=== PATIENT | male | born 1935 | race Caucasian/White ===

== ENCOUNTER 2018-05-04 00:15 | Inpatient (IN) | payer MEDICARE, OTHER, SELFPAY ==
[2018-05-04] VITALS (14 sets, daily range): BP systolic 118–159; BP diastolic 58–106; PULSE 64–111; RESP 16–29; TEMP 36.3–37.2; O2SAT 95–99; BMI 23.8
--- NOTE | 2018-05-04 | DI.RAD.S_ITS ---
PROCEDURE: XR CHEST 1V INDICATIONS: STROKE TECHNIQUE: One view of the chest was acquired. COMPARISON: [facility], CT, PE STUDY (CTA CHEST), 03/31/2015, 17:46. [facility], CR, CHEST 1 VIEW, 03/31/2015, 15:33. [facility], CR, CHEST 1VW (PORTABLE), 11/28/2012, 7:14. [facility], CR, CHEST 2 VIEW, 01/31/2017, 15:38. [facility], CR, CHEST 1 VIEW, 02/05/2017, 11:41. FINDINGS: Surgical changes and devices: Cardiac pacemaker in expected position. Lungs and pleura: Chronic blunting of the left costophrenic angle likely secondary to pleural scarring. No pneumothorax. Mediastinum: Mediastinal contours appear normal. Heart size is moderately increased. Bones and chest wall: No suspicious bony lesions. Overlying soft tissues appear unremarkable. IMPRESSION: 1. No acute cardiopulmonary disease. 2. Cardiomegaly. Dictated by: Sophy Koroma M.D. on 05/04/2018 at 7:26 Approved by: Sophy Koroma M.D. on 05/04/2018 at 7:28
--- NOTE | 2018-05-04 | DI.CT.S_ITS ---
PROCEDURE: CT HEAD/BRAIN WO CON INDICATIONS: STROKE TECHNIQUE: Noncontrast 4.5 mm thick angled axial sections acquired from the foramen magnum to the vertex, with coronal and sagittal reformats. For radiation dose reduction, the following was used: automated exposure control, adjustment of mA and/or kV according to patient size. COMPARISON: [facility], CT, HEAD WITHOUT CONTRAST, 03/12/2014, 13:00. FINDINGS: Image quality: Excellent. CSF spaces: Basal cisterns are patent. No extra-axial fluid collections. The ventricles are symmetric in size and shape. Brain: There is encephalomalacia in parietal lobes bilaterally consistent with old infarcts. Compared with the last CT on 03/12/2014, there is no significant change. Old lacunar infarcts in basal ganglia bilaterally are again noted. No intracranial bleeds or masses. There is cerebral volume loss for age, with resultant ventricular and sulcal prominence. There are periventricular and deep white matter chronic small vessel ischemic changes. There is intracranial internal carotid artery atherosclerosis. Skull and face: Calvarium and visualized facial bones appear intact, without suspicious lesions. Sinuses: Visualized sinuses and mastoids are clear. IMPRESSION: 1. Stable old parietal infarcts bilaterally and old lacunar infarcts in basal ganglia bilaterally. 2. No acute intracranial abnormalities. 3. Cerebral volume loss and chronic microvascular ischemic changes. No significant discrepancy with the assistant casino shift manager radiology preliminary report. Dictated by: Sophy Koroma M.D. on 05/04/2018 at 7:46 Approved by: Sophy Koroma M.D. on 05/04/2018 at 7:51
--- NOTE | 2018-05-04 00:29 | DI.CT.S_ITS ---
PROCEDURE: CT ANGIO HEAD AND NECK INDICATIONS: Acute Right upper extremety weakness TECHNIQUE: Pre-contrast 4.5 mm thick sections acquired from the foramen magnum to the vertex. After the administration of intravenous contrast, 1 mm thick sections acquired from the aortic arch through the [place]. Post-contrast 4.5 mm thick sections then re-acquired from the foramen magnum to the vertex. 3-dimensional wnzjwac-blimkxxhb-sahpwuoexu (MIP) and/or volume rendering reformats were acquired of the central intracranial vasculature and neck separately. COMPARISON: [facility], , MRI HEAD W/ANGIOGRAM, 02/21/2003, 14:37. [facility], US, CAROTID ARTERY DOPPLER BILAT, 09/04/2016, 12:14. [facility], CT, HEAD WITHOUT CONTRAST, 03/12/2014, 13:00. FINDINGS: Image quality: Excellent. BRAIN: CSF spaces: Ventricles are normal in size and shape. Basal cisterns are patent. No extra-axial fluid collections. Brain: No midline shift. No intracranial bleeds or masses. Esquivel-white matter interface appears intact. Skull and face: Calvarium and facial bones appear intact, without suspicious lesions. Orbits appear normal. Sinuses: Sinuses and mastoids are clear. HEAD CT ANGIOGRAPHY: Anterior circulation: Intracranial internal carotid arteries are normal in size and flow. The flow within the paired anterior cerebral arteries is normal and symmetric. The flow within the middle cerebral arteries is normal and symmetric. The anterior communicating artery is seen. No aneurysms are seen. Posterior circulation: Visualized portions of the vertebral arteries demonstrate normal caliber, and join to form a normal appearing basilar artery. Flow within the posterior cerebral arteries is normal and symmetric. No aneurysms are seen. NECK CT ANGIOGRAPHY: Carotid system: The great vessels demonstrate a conventional anatomy as they arise from the aortic arch. The origins of the common carotid arteries appear patent. The common carotid arteries demonstrate normal caliber and courses. The bifurcation regions demonstrate mild atherosclerotic calcification bilaterally. There is ~30% stenosis of the proximal right internal carotid artery. No significant narrowing in the left internal carotid artery. More distally, the internal carotid arteries demonstrate normal calibers and courses. Posterior circulation: The origins of the vertebral arteries both appear widely patent. The more superior extracranial portions of both vertebral arteries also demonstrate normal courses and calibers. They join to form a normal appearing basilar artery. Soft tissues: Visualized neck soft tissues demonstrate no suspicious abnormalities. Bones: No suspicious bony lesions. Visualized cervical spine appears normally aligned. Degenerative disc and facet disease noted in cervical spine. IMPRESSION: 1. No high-grade stenosis or occlusion in anterior circulation. 2. No high-grade stenosis or occlusion in posterior circulation. 4. Calcified plaques at the carotid bifurcations bilaterally. There is mild stenosis (~30%) of the proximal right internal carotid artery. 3. No significant stenosis in cervical vertebral arteries bilaterally. No significant discrepancy with the slot shift supervisor radiology preliminary report. Any quantitative measurements of stenosis were performed using NASCET criteria. Dictated by: Sophy Koroma M.D. on 05/04/2018 at 8:16 Approved by: Sophy Koroma M.D. on 05/04/2018 at 8:26
[2018-05-04 00:44] LABS: Add Manual Diff / Slide Review NO; Basophils Percent Auto 0.6 % (0-2); Eosinophils Percent Auto 2.4 % (2-4); Hematocrit 33.7 % (41-53); Hemoglobin 10.6 g/dL (13.5-17.5); Lymphocytes Percent Auto 29.8 % (25-40); Mean Corpuscular HGB Conc 31.6 % (30-36); Mean Corpuscular Hemoglobin 24.9 PG (26-34); Mean Corpuscular Volume 78.9 fL (80-100); Monocytes Percent Auto 9.9 % (3-14); Neutrophils Absolute Auto 4500 /uL (3000-5900); Neutrophils Percent Auto 57.3 % (50-75); Platelet Count 344 X10^3/uL (150-400); Red Blood Cell Count 4.27 X10^6/uL (4.5-5.9); Red Cell Distribution Width 15.7 % (11.6-14.8); White Blood Cell Count 7.8 X10^3/uL (4.5-11.0)
[2018-05-04 00:47] LABS: INR 2.1 (0.9-1.3); Prothrombin Time 22.7 SECONDS (10.1-12.7)
[2018-05-04 00:52] LABS: BUN Creatinine Ratio 26.9 (6-22); Blood Urea Nitrogen 35 mg/dL (9-20); Calcium 9.7 mg/dL (8.4-10.2); Carbon Dioxide 26 mmol/L (22-32); Chloride 106 mmol/L (98-107); Glucose 166 mg/dL (80-110); HEMOLYSIS < 15 (0-50); Potassium 4.6 mmol/L (3.4-5.1); Sodium 143 mmol/L (137-145)
--- NOTE | 2018-05-04 01:06 | PC.NURSE ---
Angio Head and Neck CT
--- NOTE | 2018-05-04 01:07 | PC.NURSE ---
Pt is unable to move right arm,he can sense that it is there but can't move it. Pt has hx stroke with some left sided defecits in left arm but pt stats that this doesn't feel like when he had a stroke before. pt is alert/oriented and acting appropriate.
[2018-05-04 01:25] LABS: Troponin I 0.054 ng/mL (0.01-0.034)
--- NOTE | 2018-05-04 02:24 | ED_ITS ---
HPI - Neuro Symptoms/Deficit General Chief Complaint: Neuro Symptoms/Deficit Stated Complaint: Rt Side Weakness History of Present Illness HPI Narrative: HPI 83 y/o male w/ a Hx CVA with persistent mild left upper extremity weakness, A. fib on warfarin, seizure disorder, CHF, and ischemic cardiomyopathy presents for evaluation of 1.5 hours of sudden onset right upper extremity flaccid weakness with grossly intact sensation. Patient reports he is watching television when his right arm went weak. Denies LOC. * Onset: 1.5 hours prior to arrival * EMS/Triage glucose: not available. * Anticoagulation: warfarin * Denies: prior intracranial bleeding, recent surgery, recent arterial puncture , dark or tarry or bright red stools. M/S/F/SocHx notable for: please see HPI; remainder reviewed with patient and in chart. ROS: Negative constitutional, eye, cardiovascular, pulmonary, GI, , MSK, skin , neurologic, psychiatric, endocrine unless noted in the HPI. Exam Gen: Pleasant, nontoxic-appearing, resting comfortably. HEENT: NC, AT, PEERL, EOMI. Resp: Clear to auscultation bilaterally, normal work of breathing, no accessory muscle usage. Card: Regular rate and rhythm with no murmurs, rubs, or gallops, extremities warm and well perfused. GI: Non-tender to palpation throughout all quadrants, no focal tenderness at McBurney's point, negative Armijo's sign, non-distended, no rebound or guarding. : No suprapubic tenderness to palpation. MSK: No visible deformities, strength and tone without visually appreciable deficit. Skin: Normal color with no visible lesions. Neuro: Gen AO x 3, no facial asymmetry, no gaze preference, no slurring of speech. CN II-III: pupils equal and reactive (4->2mm bilaterally); III, IV, : EOMI, V1-V3: sensation to touch bilaterally intact; VII: no facial asymmetry ( frown / smile); VIII: no nystagmus; X: phonation intact, uvula midline; XI: trapezius 5/5 bilaterally, XII: tongue midline. Cerebellar: left upper extremity with mild dysmetria, bilateral lower extremities without dysmetria on heel to cesar. Motor: left 5/5 global account executive /elbow/shoulder strength with sensation intact to touch. Right upper extremity with 0/5 global account executive strength, elbow flexion, shoulder function. Sensation grossly intact to touch. Bilateral 5/5 dorsiflexion/plantarflexion and foot sensation intact to touch. Psych: Mood and affect appropriate. Labs (pertinent): POC glucose 166 WBC 7.8, Hb 10.6, PLT 344, Na 143, K 4.6, Cr 1.30. Troponin 0.054 PT/INR 2.1, aPTT 22.7 Imaging (pertinent): CT Head: in comparison to the previous study there has been no significant interval change. Again the patient demonstrates large bilateral cerebral infarcts with resulting in several encephalomalacia/gliosis. There is pre- existing periventricular white matter disease with old lacunar infarcts in the basal ganglia. CTA Head and Neck: not available. CXR: No acute cardiopulmonary disease process. EKG: ventricularly paced at 94 bpm. CTA: no evidence of acute vascular pathology. MDM Previous chart, nursing note, labs, imaging, and vitals reviewed. A: 83 y/o male w/ a Hx CVA with persistent mild left upper extremity weakness, A. fib on warfarin, seizure disorder, CHF, and ischemic cardiomyopathy presents for evaluation of 1.5 hours of sudden onset right upper extremity flaccid weakness with grossly intact sensation. DDx: CVA (hemorrhagic, ischemic), TIA, seizure with Juan?s paralysis, complex migraine with aura, hypoglycemia, transient global amnesia, arrhythmia/ACS, peripheral vestibulopathy, functional / conversion disorder, intracranial mass ( tumor, SDH), metabolic. Evaluation: suspect an acute ischemic stroke, patient not a TPA candidate, stat CTA head and neck were ordered to evaluate for large vaso-occlusive disease. Given absence of LOC, incontinence, or other characteristic features strongly doubt Juan's paralysis following a seizure. CTA without evidence of intervenable lesion. Troponin mildly elevated 0.054, unclear if this represents an NSTEMI versus baseline level of troponin elevation. Patient given aspirin and admitted for further care. At the time of the patient's emergency department evaluation there is no clear evidence of stroke mimic. Impression: right arm weakness (please reference below for remainder of encounter information) On Anticoagulants: Yes (coumadin) Related Data Previous Rx's Medication Instructions Recorded digoxin [Lanoxin] 0.125 mg PO QPM #30 tab 02/10/17 gemfibrozil 600 mg PO BIDAC #180 tab 06/21/17 metoprolol succinate 100 mg PO QDAY #90 ter 06/21/17 baclofen 0 PO SEE INSTRUCTIONS #90 tab 02/01/18 diazepam [Valium] 5 mg PO Q DAY #30 tab 02/01/18 furosemide [Lasix] 20 mg PO QAM #120 tab 02/01/18 warfarin [Coumadin] 5 mg PO QDAY #150 tab 02/01/18 potassium chloride ER 20 mEq 20 meq PO QAM #30 tab 03/22/18 tablet,extended release(part/cryst) Allergies Allergy/AdvReac Type Severity Reaction Status Date / Time atorvastatin [ATORVASTATIN] Allergy Mild SORE ANKLES Verified 05/04/18 00:57 simvastatin [SIMVASTATIN] Allergy Mild RASH Verified 05/04/18 00:57 influenza virus vaccine, Allergy Unknown Verified 05/04/18 00:57 specific [INFLUENZA VIRUS VACC,SPECIFIC] gabapentin [GABAPENTIN] AdvReac Intermediate altered Verified 05/04/18 00:57 mental status see 05/11/16 note PFSH Family History Brother Family history of prostate carcinoma Exam Initial Vital Signs Initial Vital Signs: Vital Signs Temperature 97.3 F L 05/04/18 00:10 Pulse Rate 95 H 05/04/18 00:10 Respiratory Rate 29 H 05/04/18 00:10 Blood Pressure 159/81 H 05/04/18 00:10 Pulse Oximetry 99 05/04/18 00:10 Course Orders Ordered: ED Orders 05/04/18 CT head/brain wo con Stat XR chest 1V Stat 05/04/18 00:29 CT angio head and neck Stat EKG-12 Lead Stat 05/04/18 00:30 Basic Metabolic Panel Stat Complete Blood Count AUTO DIFF Stat Prothrombin Time INR Stat Troponin I Stat Vital Signs - 8 hr 05/04/18 00:10 05/04/18 00:54 05/04/18 01:16 Temperature 97.3 F L Pulse Rate 95 H 91 H 83 Respiratory Rate 29 H 26 H 20 Blood Pressure 159/81 H Blood Pressure [Left Arm] 152/96 H 142/93 H Pulse Oximetry 99 97 97 MDM - Neuro Symptoms/Deficit Lab Data Result diagrams: 05/04/18 00:30 05/04/18 00:30 Lab Results 05/04/18 05/04/18 05/04/18 Range/Units 00:30 00:30 00:30 WBC 7.8 (4.5-11.0) X10^3/uL RBC 4.27 L (4.5-5.9) X10^6/uL Hgb 10.6 L (13.5-17.5) g/dL Hct 33.7 L (41-53) % MCV 78.9 L (80-100) fL MCH 24.9 L (26-34) PG MCHC 31.6 (30-36) % RDW 15.7 H (11.6-14.8) % Plt Count 344 (150-400) X10^3/uL Neut % (Auto) 57.3 (50-75) % Lymph % (Auto) 29.8 (25-40) % [place] % (Auto) 9.9 (3-14) % Eos % (Auto) 2.4 (2-4) % Baso % (Auto) 0.6 (0-2) % Neut # (Auto) 4500 (7783-6581) /uL PT 22.7 H (10.1-12.7) SECONDS INR 2.1 H (0.9-1.3) Sodium 143 (137-145) mmol/L Potassium 4.6 (3.4-5.1) mmol/L Chloride 106 (98-107) mmol/L Carbon Dioxide 26 (22-32) mmol/L BUN 35 H (9-20) mg/dL Creatinine 1.30 H (0.66-1.25) mg/dL Estimated GFR 53.0 L (>60) mL/min BUN/Creatinine Ratio 26.9 H (6-22) Glucose 166 H (80-110) mg/dL Calcium 9.7 (8.4-10.2) mg/dL Troponin I (0.01-0.034) ng/mL 05/04/18 Range/Units 00:30 WBC (4.5-11.0) X10^3/uL RBC (4.5-5.9) X10^6/uL Hgb (13.5-17.5) g/dL Hct (41-53) % MCV (80-100) fL MCH (26-34) PG MCHC (30-36) % RDW (11.6-14.8) % Plt Count (150-400) X10^3/uL Neut % (Auto) (50-75) % Lymph % (Auto) (25-40) % [place] % (Auto) (3-14) % Eos % (Auto) (2-4) % Baso % (Auto) (0-2) % Neut # (Auto) (3643-0635) /uL PT (10.1-12.7) SECONDS INR (0.9-1.3) Sodium (137-145) mmol/L Potassium (3.4-5.1) mmol/L Chloride (98-107) mmol/L Carbon Dioxide (22-32) mmol/L BUN (9-20) mg/dL Creatinine (0.66-1.25) mg/dL Estimated GFR (>60) mL/min BUN/Creatinine Ratio (6-22) Glucose (80-110) mg/dL Calcium (8.4-10.2) mg/dL Troponin I 0.054 H (0.01-0.034) ng/mL Discharge Plan Departure Prescriptions: No Action digoxin [Lanoxin] 125 MCG tablet 0.125 mg PO QPM Qty: 30 RF: 11 metoprolol succinate 100 MG tablet extended release 24 hr 100 mg PO QDAY Qty: 90 RF: 3 gemfibrozil 600 MG tablet 600 mg PO BIDAC Qty: 180 RF: 3 baclofen 10 MG tablet PO SEE INSTRUCTIONS Qty: 90 RF: 3 warfarin [Coumadin] 5 MG tablet 5 mg PO QDAY Qty: 150 RF: PRN furosemide [Lasix] 20 MG tablet 20 mg PO QAM Qty: 120 RF: 3 diazepam [Valium] 5 MG tablet 5 mg PO Q DAY Qty: 30 RF: 3 potassium chloride [Klor-Con M20] 20 mEq tablet,ER particles/crystals 20 meq PO QAM Qty: 30 RF: 11
--- NOTE | 2018-05-04 02:42 | PC.NURSE ---
Patient able to move right leg but can't ambulate - doesn't have control;
[2018-05-04] MEDS: ASPIRIN 81 MG TAB 324 MG PO (03:01)
[2018-05-04 03:02] LABS: Appearance Urine UA CLOUDY; Bilirubin Urine UA NEGATIVE (NEGATIVE); Color Urine UA YELLOW; Glucose Urine UA NEGATIVE (Normal); Ketones Urine UA NEGATIVE (NEGATIVE); Leukocyte Esterase Urine UA 2+ (NEGATIVE); Nitrite Urine UA POSITIVE (Negative); Occult Blood Urine UA 3+ (Negative); Protein Urine UA 2+ (Negative); Specific Gravity Urine UA <=1.005 (1.000-1.035); Urobilinogen Urine UA 0.2 E.U./dL (0.2)
[2018-05-04 03:15] LABS: RBC Urine 30-100/HPF (0-5/HPF); WBC Urine 30-100/HPF (0-5/HPF)
[2018-05-04 03:16] LABS: Bacteria Urine Many (>30); Culture Indicated Urine Specimen Cultured
--- NOTE | 2018-05-04 03:36 | ED.NEUROSD ---
HPI - Neuro Symptoms/Deficit General Chief Complaint: Neuro Symptoms/Deficit Stated Complaint: Rt Side Weakness History of Present Illness HPI Narrative: HPI 83 y/o male w/ a Hx CVA with persistent mild left upper extremity weakness, A. fib on warfarin, seizure disorder, CHF, and ischemic cardiomyopathy presents for evaluation of 1.5 hours of sudden onset right upper extremity flaccid weakness with grossly intact sensation. Patient reports he is watching television when his right arm went weak. Denies LOC. * Onset: 1.5 hours prior to arrival * EMS/Triage glucose: not available. * Anticoagulation: warfarin * Denies: prior intracranial bleeding, recent surgery, recent arterial puncture, dark or tarry or bright red stools. M/S/F/SocHx notable for: please see HPI; remainder reviewed with patient and in chart. ROS: Negative constitutional, eye, cardiovascular, pulmonary, GI, , MSK, skin, neurologic, psychiatric, endocrine unless noted in the HPI. Exam Gen: Pleasant, nontoxic-appearing, resting comfortably. HEENT: NC, AT, PEERL, EOMI. Resp: Clear to auscultation bilaterally, normal work of breathing, no accessory muscle usage. Card: Regular rate and rhythm with no murmurs, rubs, or gallops, extremities warm and well perfused. GI: Non-tender to palpation throughout all quadrants, no focal tenderness at McBurney's point, negative Armijo's sign, non-distended, no rebound or guarding. : No suprapubic tenderness to palpation. MSK: No visible deformities, strength and tone without visually appreciable deficit. Skin: Normal color with no visible lesions. Neuro: Gen AO x 3, no facial asymmetry, no gaze preference, no slurring of speech. CN II-III: pupils equal and reactive (4->2mm bilaterally); III, IV, : EOMI, V1-V3: sensation to touch bilaterally intact; VII: no facial asymmetry (frown / smile); VIII: no nystagmus; X: phonation intact, uvula midline; XI: trapezius 5/5 bilaterally, XII: tongue midline. Cerebellar: left upper extremity with mild dysmetria, bilateral lower extremities without dysmetria on heel to cesar. Motor: left 5/5 trailer body assembler /elbow/shoulder strength with sensation intact to touch. Right upper extremity with 0/5 trailer body assembler strength, elbow flexion, shoulder function. Sensation grossly intact to touch. Bilateral 5/5 dorsiflexion/plantarflexion and foot sensation intact to touch. Psych: Mood and affect appropriate. Labs (pertinent): POC glucose 166 WBC 7.8, Hb 10.6, PLT 344, Na 143, K 4.6, Cr 1.30. Troponin 0.054 PT/INR 2.1, aPTT 22.7 Imaging (pertinent): CT Head: in comparison to the previous study there has been no significant interval change. Again the patient demonstrates large bilateral cerebral infarcts with resulting in several encephalomalacia/gliosis. There is pre-existing periventricular white matter disease with old lacunar infarcts in the basal ganglia. CTA Head and Neck: not available. CXR: No acute cardiopulmonary disease process. EKG: ventricularly paced at 94 bpm. CTA: no evidence of acute vascular pathology. MDM Previous chart, nursing note, labs, imaging, and vitals reviewed. A: 83 y/o male w/ a Hx CVA with persistent mild left upper extremity weakness, A. fib on warfarin, seizure disorder, CHF, and ischemic cardiomyopathy presents for evaluation of 1.5 hours of sudden onset right upper extremity flaccid weakness with grossly intact sensation. DDx: CVA (hemorrhagic, ischemic), TIA, seizure with Juan?s paralysis, complex migraine with aura, hypoglycemia, transient global amnesia, arrhythmia/ACS, peripheral vestibulopathy, functional / conversion disorder, intracranial mass (tumor, SDH), metabolic. Evaluation: suspect an acute ischemic stroke, patient not a TPA candidate, stat CTA head and neck were ordered to evaluate for large vaso-occlusive disease. Given absence of LOC, incontinence, or other characteristic features strongly doubt Juan's paralysis following a seizure. CTA without evidence of intervenable lesion. Troponin mildly elevated 0.054, unclear if this represents an NSTEMI versus baseline level of troponin elevation. Patient given aspirin and admitted for further care. At the time of the patient's emergency department evaluation there is no clear evidence of stroke mimic. Patient incidentally noted intermittent mild urethral bleeding of several weeks duration that is only at the end administration. This was communicated to the accepting physician, further evaluation in the daytime. Impression: right arm weakness (please reference below for remainder of encounter information) On Anticoagulants: Yes (coumadin) Related Data Previous Rx's Medication Instructions Recorded digoxin [Lanoxin] 0.125 mg PO QPM #30 tab 02/10/17 gemfibrozil 600 mg PO BIDAC #180 tab 06/21/17 metoprolol succinate 100 mg PO QDAY #90 ter 06/21/17 baclofen 0 PO SEE INSTRUCTIONS #90 tab 02/01/18 diazepam [Valium] 5 mg PO Q DAY #30 tab 02/01/18 furosemide [Lasix] 20 mg PO QAM #120 tab 02/01/18 warfarin [Coumadin] 5 mg PO QDAY #150 tab 02/01/18 potassium chloride ER 20 mEq 20 meq PO QAM #30 tab 03/22/18 tablet,extended release(part/cryst) Allergies Allergy/AdvReac Type Severity Reaction Status Date / Time atorvastatin [ATORVASTATIN] Allergy Mild SORE ANKLES Verified 05/04/18 00:57 simvastatin [SIMVASTATIN] Allergy Mild RASH Verified 05/04/18 00:57 influenza virus vaccine, Allergy Unknown Verified 05/04/18 00:57 specific [INFLUENZA VIRUS VACC,SPECIFIC] gabapentin [GABAPENTIN] AdvReac Intermediate altered Verified 05/04/18 00:57 mental status see 05/11/16 note [facility] Family History Brother Family history of prostate carcinoma Exam Initial Vital Signs Initial Vital Signs: Vital Signs Temperature 97.3 F L 05/04/18 00:10 Pulse Rate 95 H 05/04/18 00:10 Respiratory Rate 29 H 05/04/18 00:10 Blood Pressure 159/81 H 05/04/18 00:10 Pulse Oximetry 99 05/04/18 00:10 Course Orders Ordered: ED Orders 05/04/18 CT head/brain wo con Stat XR chest 1V Stat 05/04/18 00:29 CT angio head and neck Stat EKG-12 Lead Stat 05/04/18 00:30 Basic Metabolic Panel Stat Complete Blood Count AUTO DIFF Stat Prothrombin Time INR Stat Troponin I Stat 05/04/18 02:50 Urinalysis and Microscopic Stat Urine Culture Stat Discontinued Medications Aspirin (Aspirin Chew) 324 mg PO NOW ONE Stop: 05/04/18 02:25 Last Admin: 05/04/18 03:01 Dose: 324 mg Vital Signs - 8 hr 05/04/18 00:10 05/04/18 00:54 05/04/18 01:16 Temperature 97.3 F L Pulse Rate 95 H 91 H 83 Respiratory Rate 29 H 26 H 20 Blood Pressure 159/81 H Blood Pressure [Left Arm] 152/96 H 142/93 H Pulse Oximetry 99 97 97 MDM - Neuro Symptoms/Deficit Lab Data Result diagrams: 05/04/18 00:30 05/04/18 00:30 Lab Results 05/04/18 05/04/18 05/04/18 Range/Units 00:30 00:30 00:30 WBC 7.8 (4.5-11.0) X10^3/uL RBC 4.27 L (4.5-5.9) X10^6/uL Hgb 10.6 L (13.5-17.5) g/dL Hct 33.7 L (41-53) % MCV 78.9 L (80-100) fL MCH 24.9 L (26-34) PG MCHC 31.6 (30-36) % RDW 15.7 H (11.6-14.8) % Plt Count 344 (150-400) X10^3/uL Neut % (Auto) 57.3 (50-75) % Lymph % (Auto) 29.8 (25-40) % [place] % (Auto) 9.9 (3-14) % Eos % (Auto) 2.4 (2-4) % Baso % (Auto) 0.6 (0-2) % Neut # (Auto) 4500 (7667-9727) /uL PT 22.7 H (10.1-12.7) SECONDS INR 2.1 H (0.9-1.3) Sodium 143 (137-145) mmol/L Potassium 4.6 (3.4-5.1) mmol/L Chloride 106 (98-107) mmol/L Carbon Dioxide 26 (22-32) mmol/L BUN 35 H (9-20) mg/dL Creatinine 1.30 H (0.66-1.25) mg/dL Estimated GFR 53.0 L (>60) mL/min BUN/Creatinine Ratio 26.9 H (6-22) Glucose 166 H (80-110) mg/dL Calcium 9.7 (8.4-10.2) mg/dL Troponin I (0.01-0.034) ng/mL Urine Color Urine Appearance Urine pH (4.5-8.0) Ur Specific [place] (1.000-1.035) Urine Protein (Negative) Urine Glucose (UA) (Normal) g/dL Urine Ketones (NEGATIVE) Urine Occult Blood (Negative) Urine Nitrate (Negative) Urine Bilirubin (NEGATIVE) Urine Urobilinogen (0.2) E.U./dL Ur Leukocyte Esterase (NEGATIVE) Urine RBC (0-5/HPF) Urine WBC (0-5/HPF) Urine Bacteria (None) Ur Culture Indicated? Micro UA Comment 05/04/18 05/04/18 Range/Units 00:30 02:50 WBC (4.5-11.0) X10^3/uL RBC (4.5-5.9) X10^6/uL Hgb (13.5-17.5) g/dL Hct (41-53) % MCV (80-100) fL MCH (26-34) PG MCHC (30-36) % RDW (11.6-14.8) % Plt Count (150-400) X10^3/uL Neut % (Auto) (50-75) % Lymph % (Auto) (25-40) % [place] % (Auto) (3-14) % Eos % (Auto) (2-4) % Baso % (Auto) (0-2) % Neut # (Auto) (3783-7985) /uL PT (10.1-12.7) SECONDS INR (0.9-1.3) Sodium (137-145) mmol/L Potassium (3.4-5.1) mmol/L Chloride (98-107) mmol/L Carbon Dioxide (22-32) mmol/L BUN (9-20) mg/dL Creatinine (0.66-1.25) mg/dL Estimated GFR (>60) mL/min BUN/Creatinine Ratio (6-22) Glucose (80-110) mg/dL Calcium (8.4-10.2) mg/dL Troponin I 0.054 H (0.01-0.034) ng/mL Urine Color Yellow Urine Appearance Cloudy Urine pH 7.0 (4.5-8.0) Ur Specific [place] <=1.005 (1.000-1.035) Urine Protein 2+ H (Negative) Urine Glucose (UA) Negative (Normal) g/dL Urine Ketones Negative (NEGATIVE) Urine Occult Blood 3+ H (Negative) Urine Nitrate Positive (Negative) Urine Bilirubin Negative (NEGATIVE) Urine Urobilinogen 0.2 (0.2) E.U./dL Ur Leukocyte Esterase 2+ H (NEGATIVE) Urine RBC 30-100/hpf H (0-5/HPF) Urine WBC 30-100/hpf H (0-5/HPF) Urine Bacteria Many (>30) H (None) Ur Culture Indicated? Specimen cultured Micro UA Comment Not Reportable Discharge Plan Departure Prescriptions: No Action digoxin [Lanoxin] 125 MCG tablet 0.125 mg PO QPM Qty: 30 RF: 11 metoprolol succinate 100 MG tablet extended release 24 hr 100 mg PO QDAY Qty: 90 RF: 3 gemfibrozil 600 MG tablet 600 mg PO BIDAC Qty: 180 RF: 3 baclofen 10 MG tablet PO SEE INSTRUCTIONS Qty: 90 RF: 3 warfarin [Coumadin] 5 MG tablet 5 mg PO QDAY Qty: 150 RF: PRN furosemide [Lasix] 20 MG tablet 20 mg PO QAM Qty: 120 RF: 3 diazepam [Valium] 5 MG tablet 5 mg PO Q DAY Qty: 30 RF: 3 potassium chloride [Klor-Con M20] 20 mEq tablet,ER particles/crystals 20 meq PO QAM Qty: 30 RF: 11
--- NOTE | 2018-05-04 04:52 | PC.NURSE ---
Small amount of blood from meatus of penis - MD notified; Urine sample sent to lab;
--- NOTE | 2018-05-04 06:19 | PC.NURSE ---
Patient is alert and oriented and provides great detail about past events although admits to some short term memory problems. NIH score is 7 at this time. He has some slurring of speech (uncertain if related to hx of previous CVA). Has some deficit in left arm from previous CVA but is able to grasp and has good ROM. Right arm is flaccid when lifted and asked to hold but patient is able to lift arm up but unable to hold for more than few seconds. No deficit noted in left LE but has some weakness in right LE; again is able to pick leg up and hold it with some drift but does not hit bed. Assisted to sit on side of bed to urinate and is unable to maintain upright position without support and doesn't move right arm along with rest of body. HRR and telemetry reading showing v-paced upon admission. Denies nausea. BT present and abdomen is soft. Denies dysuria, frequency, urgency or incontinence. Is able to turn himself in bed. Swallow screen passed without problems. Denies pain. Fall risk score is high and bed alarm activated, patient instructed to call for staff assist and verbalized understanding of not getting up without help. States preference to be DNR so will relay to MD via day shift RN. Oriented to room, call light and bed controls.
--- NOTE | 2018-05-04 11:27 | PM.HP.1 ---
History of Present Illness Date Patient Seen: 05/04/18 Time Patient Seen: 08:28 Chief complaint: Rt Side Weakness Narrative: Right arm weakness. The patient was admitted for early this morning through the emergency room. He had acute onset of right arm weakness sometime earlier this morning. He also felt that his right leg seemed weak. The weakness of his right arm persisted and came to the emergency room He relates that by the time he made it to the emergency room with right leg weakness had resolved As stated he had acute onset of right arm weakness unable to move at all altogether. He had no other associated symptoms. Denies headache any visual or speech changes and as stated of the right leg that defect has resolved He is status post having had a stroke involving the left side and has improved significantly. He says some weakness of the left hand but able to manage without difficulty The patient has multiple comorbidities related to this including atrial fibrillation, history of a CVA, diabetes, hypertension, hyperlipidemia, he has a defibrillator for V-tach. Patient sees Dr. Wong for his cardiac status last seen in January. Sees Dr. Baca for his ongoing healthcare seen in January. 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 Patient History Family & Social History Family History: Reviewed 05/04/18 by Javier Owens MD Social History: household members spouse Prior Living Arrangements House Safety & Behavioral: Feels Safe in Current Yes Environment Been Physically Hurt or No Threatened By a Person Suicidal Ideation Description None Suicide Plan Description No Plan Tobacco & Substance use: Smoking Status Never smoker alcohol intake never Substance Use Type does not use Meds Home Medications Medication Instructions Recorded Confirmed Type digoxin [Lanoxin] 0.125 mg PO QPM #30 tab 02/10/17 05/04/18 Rx gemfibrozil 600 mg PO BIDAC #180 tab 06/21/17 Rx metoprolol succinate 100 mg PO QDAY #90 ter 06/21/17 Rx diazepam [Valium] 5 mg PO Q DAY #30 tab 02/01/18 Rx furosemide [Lasix] 20 mg PO QAM #120 tab 02/01/18 05/04/18 Rx warfarin [Coumadin] 5 mg PO QDAY #150 tab 02/01/18 05/04/18 Rx baclofen 10 mg PO DAILY 05/04/18 05/04/18 History potassium chloride [Klor-Con M20] 100 meq PO QAM 05/04/18 History Allergies Allergy/AdvReac Type Severity Reaction Status Date / Time atorvastatin [ATORVASTATIN] Allergy Mild SORE ANKLES Verified 05/04/18 00:57 simvastatin [SIMVASTATIN] Allergy Mild RASH Verified 05/04/18 00:57 influenza virus vaccine, Allergy Unknown Verified 05/04/18 00:57 specific [INFLUENZA VIRUS VACC,SPECIFIC] gabapentin [GABAPENTIN] AdvReac Intermediate altered Verified 05/04/18 00:57 mental status see 05/11/16 note Review of Systems Review of Systems All systems reviewed & are unremarkable except as noted in HPI and below Exam Vital Signs (past 8 hours): - 05/04/18 03:55 05/04/18 04:48 05/04/18 04:53 Temperature 98.4 F 98.2 F Pulse Rate 94 H 64 95 H Respiratory Rate 16 18 19 Blood Pressure 145/64 H Blood Pressure [Left Arm] 145/74 H 146/65 H Pulse Oximetry 98 98 98 05/04/18 05:06 05/04/18 08:00 Temperature 97.6 F 98.4 F Pulse Rate 101 H 94 H Respiratory Rate 16 18 Blood Pressure 141/106 H 137/96 H Blood Pressure [Left Arm] Pulse Oximetry 98 98 Oxygen Delivery Method Room Air Narrative Exam Narrative: Gen.: Skin: Warm well perfused. No prominent lesions. Nonicteric. HEENT: PERRL., normal EOM, external ears canals TMs normal, nasal mucosa normal and midline septum, oropharynx without lesions. Neck: Trachea midline. Thyroid nontender and not enlarged. Carotids without bruits. No lymphadenopathy Back: No obvious deformity or tenderness. Chest: Clear to P&A. Symmetric. CV: RRR no murmur or gallop. No JVD. Abdomen: No masses bruits tenderness or visceromegaly. Neuro: Cranial nerves II through XII grossly intact. He has weakness of his right arm. He can elevate his arm at the shoulder. He can bend his elbow approximately 45?. He has no mobility of his wrist or his hand or his fingers. He also has residual from his stroke on the left with some weakness of the grasp of his left hand but has full mobility of the arm otherwise Gait not tested Mental status: Intact for screening Extremities: No cyanosis clubbing or edema] Musculoskeletal: No gross deformities Lymphatics: Negative for lymphadenopathy, supraclavicular axillary or inguinal Objective Labs Result Diagrams: 05/04/18 00:30 05/04/18 00:30 Labs: Laboratory Results - last 24 hr 05/04/18 05/04/18 05/04/18 00:30 00:30 00:30 WBC 7.8 RBC 4.27 L Hgb 10.6 L Hct 33.7 L MCV 78.9 L MCH 24.9 L MCHC 31.6 RDW 15.7 H Plt Count 344 Neut % (Auto) 57.3 Lymph % (Auto) 29.8 [place] % (Auto) 9.9 Eos % (Auto) 2.4 Baso % (Auto) 0.6 Neut # (Auto) 4500 PT 22.7 H INR 2.1 H Sodium 143 Potassium 4.6 Chloride 106 Carbon Dioxide 26 BUN 35 H Creatinine 1.30 H Estimated GFR 53.0 L BUN/Creatinine Ratio 26.9 H Glucose 166 H Calcium 9.7 Troponin I Urine Color Urine Appearance Urine pH Ur Specific [place] Urine Protein Urine Glucose (UA) Urine Ketones Urine Occult Blood Urine Nitrate Urine Bilirubin Urine Urobilinogen Ur Leukocyte Esterase Urine RBC Urine WBC Urine Bacteria Ur Culture Indicated? Micro UA Comment 05/04/18 05/04/18 00:30 02:50 WBC RBC Hgb Hct MCV MCH MCHC RDW Plt Count Neut % (Auto) Lymph % (Auto) [place] % (Auto) Eos % (Auto) Baso % (Auto) Neut # (Auto) PT INR Sodium Potassium Chloride Carbon Dioxide BUN Creatinine Estimated GFR BUN/Creatinine Ratio Glucose Calcium Troponin I 0.054 H Urine Color Yellow Urine Appearance Cloudy Urine pH 7.0 Ur Specific [place] <=1.005 Urine Protein 2+ H Urine Glucose (UA) Negative Urine Ketones Negative Urine Occult Blood 3+ H Urine Nitrate Positive Urine Bilirubin Negative Urine Urobilinogen 0.2 Ur Leukocyte Esterase 2+ H Urine RBC 30-100/hpf H Urine WBC 30-100/hpf H Urine Bacteria Many (>30) H Ur Culture Indicated? Specimen cultured Micro UA Comment Not Reportable Assessment & Plan Plan: Assessment/Plan Narrative: 1. Patient clinically had a stroke producing weakness of his right arm. However he does relate that has improved since she has been in the emergency room at initially at home he was unable to his right arm at all now is able to bend his elbow and elevated shoulder. The leg symptoms apparently have resolved altogether. This may well be a temporary insult yet to be determined Patient has obvious multiple risk factors for recurrent strokes. Patient is adequately anticoagulated The patient will remain here in the hospital for physical therapy and occupational therapy is he is still somewhat weak. Further evaluation pending Will continue his baseline medications Quality VTE Deep Vein Thrombosis/Pulmonary Embolism Present on Admission: No
[2018-05-04 11:57] LABS: Troponin I 0.073 ng/mL (0.01-0.034)
--- NOTE | 2018-05-04 13:28 | PT.IIE ---
Physical Therapy Inpatient Evaluation/Re-Eval M1 PT/OT-IP Prior Functional Status Start: 05/04/18 13:02 Freq: NEEDED Status: Active Protocol: Document 05/04/18 11:45 [facility] (Rec: 05/04/18 13:28 [facility] [id number]) Medical Review Prior Functional Status Medical History Reviewed Yes Diet/Fluid Consistency Regular Communication communication with nursing as the patient had been sitting up using the urinal and needed help getting back into bed Prior Functional Level (Other details) the patient has some residual left sided weakness from a previous stroke involving his left side but was independent with all ADL's. He had been using his right hand to eat as the left hand was the most affected. Social History Household Members spouse Living Arrangements House Employment Status Retired M2 PT-IP Current Condition Start: 05/04/18 13:02 Freq: NEEDED Status: Active Protocol: Document 05/04/18 11:45 [facility] (Rec: 05/04/18 13:28 [facility] [id number]) Physical Therapy Current Condition Current Condition Evaluation Date 05/04/18 Treatment Diagnosis right sided weakness Onset Date 05/03/18 M3 PT-IP Subjective Start: 05/04/18 13:02 Freq: NEEDED Status: Active Protocol: Document 05/04/18 11:45 [facility] (Rec: 05/04/18 13:28 [facility] [id number]) Subjective Physical Therapy Visit Type Type Initial Evaluation Visit Start Time 11:45 Visit Stop Time 12:10 Total Visit Minutes 25 Physical Therapy Visit Comments Patient Comments Mr Caldwell reports his right sided weakness does seem a little better that it did when he was admitted. He reports it is his hand which was most affected. Patient/Caregiver Goals To return to his prior level of function at home Therapy Pain Assessment Pain When Pain Assessed At Rest Pain Present Pain Present Denied Pain M4 PT-IP Mobility and Gait Start: 05/04/18 13:02 Freq: NEEDED Status: Active Protocol: Document 05/04/18 11:45 [facility] (Rec: 05/04/18 13:28 [facility] [id number]) PT-Bed Mobility Assessment Rolling Level of Assist Minimal Assistance Sit to Supine Sit to Supine Minimal Assistance Scooting Scooting to Edge of Bed Minimal Assistance PT-Transfer Assessment Comments Mobility Comments The patient had been sitting up with nursing using the urinal when PT came into assess him. He did not wish to get out of bed again but agreed to transfers and strength assessment Gait Assessment Comments Gait Comments needs further evaluation PT-Balance Assessment Sitting Balance and Reactions Static Sitting Balance Ability Good Dynamic Sitting Balance Ability Good M5 PT-IP Objective Assessments Start: 05/04/18 13:02 Freq: NEEDED Status: Active Protocol: Document 05/04/18 11:45 [facility] (Rec: 05/04/18 13:28 [facility] [id number]) Orientation Orientation/Cognition Level of Alertness Alert Gross Range of Motion Upper Extremity ROM Assessment Right Impaired Impairments PROM WFL AROM limited to unable to perform for right wrist and hand, no ablility to lockstitch back maker elbow flexion AROM WFL, shoulder AROM 90 deg with elbow in a bent position, able to perform some active ROM shoulder IR, ER and horizontal adduction Lower Extremity ROM Assessment Within Functional Limits Strength Upper Extremity Strength Assessment Bilaterally Impaired Shoulder flexion 2/5 (with elbow bent) Right, 5/5 left Elbow 3/5 R 5/5 L Wrist 0/5 R, 3/5 L Hand 0/5 R, 2/5 L Lower Extremity Strength Assessment Right Impaired Hip flexion 3/5 Knee flexion 4/5, extension 4/5 Ankle DF 4/5, PF 4/5, inver 4/5, ever 4/5 Comments Strength Comments Right wrist and hand most affected with 0/5 MMT The patient is able to bend elbow and small amounts of shoulder elevation with elbow flexion are actively performed . Muscle Tone Muscle Tone WNL Yes M6 PT-IP Treatment Start: 05/04/18 13:02 Freq: NEEDED Status: Active Protocol: Document 05/04/18 11:45 [facility] (Rec: 05/04/18 13:28 [facility] [id number]) Physical Therapy Treatment Exercises Exercises Ankle Pumps Gluteal Sets Quad Sets Heel Slides Straight Leg Raises Elbow Flexion/Extension M7 PT-IP Assessment and Plan Start: 05/04/18 13:02 Freq: NEEDED Status: Active Protocol: Document 05/04/18 11:45 [facility] (Rec: 05/04/18 13:28 [facility] [id number]) PT Summary Assessment and Plan Potential Rehabilitation Potential Good Status of Condition at Evaluation Evolving Summary Impairments Strength Bed Mobility Transfers Gait Activity Tolerance Goals Bed Mobility Goal Independent Transfer Goal Independent Gait Goal Standby Assistance Gait Distance 150 feet Days to Meet Goals 3 Frequency of Treatment Frequency Of Treatment Twice a Day Treatment Plan Physical Therapy Treatment Plan Bed Mobility Training Transfer Training Gait Training Therapeutic Exercise Neuromuscular Re-ed Recommendations To Nursing Amount of Assist Needed 1 Person Assist Discharge Recommendations PT Discharge Recommendations Home with Assistance Other Discharge Recommendations further evaluation needed
[2018-05-04] MEDS: levoFLOXacin 250 MG/50 ML PIGGYBACK 50 MG IV (14:18)
[2018-05-04] MEDS: METOPROLOL ER 50 MG TABLET 100 MG PO (14:18)
[2018-05-04] MEDS: FUROSEMIDE 20 MG TABLET PO (14:18)
[2018-05-04] MEDS: SODIUM CHLORIDE 0.9% FLUSH 10 ML IV ×2 (14:19→21:18)
[2018-05-04] MEDS: WARFARIN 5 MG TABLET PO (14:21)
--- NOTE | 2018-05-04 14:52 | CM.DANOTE ---
Discharge Planning/Care Management DCP: assessment: Case received and met this morning 0830 with pt. Introduced self and role. Pt is an 83 year old male who admitted early this mornin to care of A physician team. PCP: Dr. Baca. Dr. Owens sees him today. Payer: Medicare and [employer]. Admission status is confirmed now by UR RN Jonny as: INPT. Pt with new R sided weakness in setting of prior CVA with residual L side weakness and need to use his R hand to feed himself. PT is seeing pt, OT order is obtained now. Pt states his Dolly has gone home to sleep as she left hospital this morning about 0630. P: at this point is in process. CM DCP team will follow, obtain OT, PT input and discuss d/c issues and options as more is known. CM Discharge Assessment Start: 05/04/18 14:49 Freq: Status: Active Protocol: Document 05/04/18 14:49 ITV (Rec: 05/04/18 14:51 ITV [email or web address]) Discharge Planning Assessment History Provided By Patient Medical Record Has Patient been admitted in last 30 No days? Is this patient on Medicare? Yes Prior Living Arrangements House Household Members spouse Independent with ADL's Yes: compensates for some L side weakness from prior CVA Is patient alert and oriented? Yes Caregiver for Another No DME Already Rented / Owned FWW / Walker Comment has FWW, says does not like or use it Review Status In Process Next Review Type Continued Stay Review
--- NOTE | 2018-05-04 14:56 | PC.NURSE ---
Pt is A&ox3, skin is clear. Pt had shakes, and small emesis earlier on in the shift. Low grade temp of 99.0. Has worked a bit with P.T. He can raise his r.arm up but has a hard time gripping things, pt had to be fed at lunch today. L.arm is also affected from a cva that he had 20 years ago. Pt speech was slurred this morning and this has resolved. Pt is also able to lift up his r.leg and keep it in the air. Noc shift reported that he could raise his r. arm but hand flacid. Pt has been voiding a lot in urinal, Pts urine has a foul odor from UTI. He has been started on Levaquin and is visiting with his at this time.
[2018-05-04] MEDS: GEMFIBROZIL 600 MG TABLET PO (16:51)
[2018-05-04] MEDS: DIGOXIN 0.125 MG TABLET PO (16:53)
--- NOTE | 2018-05-04 18:00 | P.HP_ITS ---
History of Present Illness Chief complaint: Rt Side Weakness Narrative: Right arm weakness. The patient was admitted for early this morning through the emergency room. He had acute onset of right arm weakness sometime earlier this morning. He also felt that his right leg seemed weak. The weakness of his right arm persisted and came to the emergency room He relates that by the time he made it to the emergency room with right leg weakness had resolved As stated he had acute onset of right arm weakness unable to move at all altogether. He had no other associated symptoms. Denies headache any visual or speech changes and as stated of the right leg that defect has resolved He is status post having had a stroke involving the left side and has improved significantly. He says some weakness of the left hand but able to manage without difficulty The patient has multiple comorbidities related to this including atrial fibrillation, history of a CVA, diabetes, hypertension, hyperlipidemia, he has a defibrillator for V-tach. Patient sees Dr. Wong for his cardiac status last seen in January. Sees Dr. Baca for his ongoing healthcare seen in January. 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 Patient History Family & Social History Family History: Reviewed 05/04/18 by Javier Owens MD Social History: household members spouse Prior Living Arrangements House Safety & Behavioral: Feels Safe in Current Yes Environment Been Physically Hurt or No Threatened By a Person Suicidal Ideation Description None Suicide Plan Description No Plan Tobacco & Substance use: Smoking Status Never smoker alcohol intake never Substance Use Type does not use Meds Home Medications Medication Instructions Recorded Confirmed Type digoxin [Lanoxin] 0.125 mg PO QPM #30 tab 02/10/17 05/04/18 Rx gemfibrozil 600 mg PO BIDAC #180 tab 06/21/17 Rx metoprolol succinate 100 mg PO QDAY #90 ter 06/21/17 Rx diazepam [Valium] 5 mg PO Q DAY #30 tab 02/01/18 Rx furosemide [Lasix] 20 mg PO QAM #120 tab 02/01/18 05/04/18 Rx warfarin [Coumadin] 5 mg PO QDAY #150 tab 02/01/18 05/04/18 Rx baclofen 10 mg PO DAILY 05/04/18 05/04/18 History potassium chloride [Klor-Con M20] 100 meq PO QAM 05/04/18 History Allergies Allergy/AdvReac Type Severity Reaction Status Date / Time atorvastatin [ATORVASTATIN] Allergy Mild SORE ANKLES Verified 05/04/18 00:57 simvastatin [SIMVASTATIN] Allergy Mild RASH Verified 05/04/18 00:57 influenza virus vaccine, Allergy Unknown Verified 05/04/18 00:57 specific [INFLUENZA VIRUS VACC,SPECIFIC] gabapentin [GABAPENTIN] AdvReac Intermediate altered Verified 05/04/18 00:57 mental status see 05/11/16 note Exam Vital Signs (past 8 hours): - 05/04/18 12:00 05/04/18 15:42 05/04/18 16:53 Temperature 98.9 F 98.6 F Pulse Rate 111 H 108 H 108 H Respiratory Rate 18 18 Blood Pressure 118/73 132/58 H 132/58 H Pulse Oximetry 98 95 Oxygen Delivery Method Room Air Objective Labs Result Diagrams: 05/04/18 00:30 05/04/18 00:30 Labs: Laboratory Results - last 24 hr 05/04/18 05/04/18 05/04/18 00:30 00:30 00:30 WBC 7.8 RBC 4.27 L Hgb 10.6 L Hct 33.7 L MCV 78.9 L MCH 24.9 L MCHC 31.6 RDW 15.7 H Plt Count 344 Neut % (Auto) 57.3 Lymph % (Auto) 29.8 [place] % (Auto) 9.9 Eos % (Auto) 2.4 Baso % (Auto) 0.6 Neut # (Auto) 4500 PT 22.7 H INR 2.1 H Sodium 143 Potassium 4.6 Chloride 106 Carbon Dioxide 26 BUN 35 H Creatinine 1.30 H Estimated GFR 53.0 L BUN/Creatinine Ratio 26.9 H Glucose 166 H Calcium 9.7 Troponin I Urine Color Urine Appearance Urine pH Ur Specific [place] Urine Protein Urine Glucose (UA) Urine Ketones Urine Occult Blood Urine Nitrate Urine Bilirubin Urine Urobilinogen Ur Leukocyte Esterase Urine RBC Urine WBC Urine Bacteria Ur Culture Indicated? Micro UA Comment 05/04/18 05/04/18 05/04/18 00:30 02:50 11:09 WBC RBC Hgb Hct MCV MCH MCHC RDW Plt Count Neut % (Auto) Lymph % (Auto) [place] % (Auto) Eos % (Auto) Baso % (Auto) Neut # (Auto) PT INR Sodium Potassium Chloride Carbon Dioxide BUN Creatinine Estimated GFR BUN/Creatinine Ratio Glucose Calcium Troponin I 0.054 H 0.073 H Urine Color Yellow Urine Appearance Cloudy Urine pH 7.0 Ur Specific [place] <=1.005 Urine Protein 2+ H Urine Glucose (UA) Negative Urine Ketones Negative Urine Occult Blood 3+ H Urine Nitrate Positive Urine Bilirubin Negative Urine Urobilinogen 0.2 Ur Leukocyte Esterase 2+ H Urine RBC 30-100/hpf H Urine WBC 30-100/hpf H Urine Bacteria Many (>30) H Ur Culture Indicated? Specimen cultured Micro UA Comment Not Reportable Quality VTE Deep Vein Thrombosis/Pulmonary Embolism Present on Admission: No
[2018-05-04 21:05] LABS: Troponin I 0.097 ng/mL (0.01-0.034)
[2018-05-05] VITALS (11 sets, daily range): BP systolic 106–132; BP diastolic 65–89; PULSE 75–112; RESP 16–19; TEMP 36–37.7; O2SAT 94–100
--- NOTE | 2018-05-05 01:52 | PC.NURSE ---
Addendum entered by Libra Wilson R.N. 05/05/18 05:51: Slept minimally this shift but states he wakes up at home with any little noise. Have been weaning oxygen during the night and this morning is now 96% on RA. Original Note: Patient is oriented except to day of week, but doesn't always seem to understand instructions/direction staff gives. Speech seems less slurred tonight with normal conversation. Breath sounds CTA with sat of 96% currently on 2L/min oxygen per NC (was on 3L at shift change with sat of 98%) so now O2 decreased to 1L/min. HRR and was v-paced on 0000 telemetry reading. Denies nausea. BT present and abdomen is soft. Needs assistance to use urinal and denies dysuria, urgency, frequency or incontinence although evening shift reported he was calling every 25 minutes to use urinal and had been incontinent of urine. Is able to turn self in bed. Right arm is still flaccid when checking for drift, but patient is able to pick arm up off bed and hold for count of 3. Is unable to make hand grasp with right hand. Left UE is weak from previous CVA. Right leg is also weak but stronger than on admission. Still has some tactile extinction and ataxia. NIH score was 7. Denies pain. Fall risk is high and bed alarm activated at shift change.
[2018-05-05] MEDS: GEMFIBROZIL 600 MG TABLET PO ×2 (06:48→16:28)
--- NOTE | 2018-05-05 09:21 | P.PN_ITS ---
Subjective Date Patient Seen: 05/05/18 Time Patient Seen: 09:17 Interval history: Patient really has no complaints. I went back over his history with him. He is not really clear as to what day it is today but may be confused somewhat by the holiday in the middle of the week that was the 04 of May yesterday No new complaints or issues. Nursing staff reports some variability in his speech seems more slurred right now than it was yesterday. I myself find him to be at baseline Has some motion at the shoulder and elbow on the right side but really nothing more distal. Somewhat impulsive but able to stand with the assistance of therapy Exam Vital Signs (past 8 hours): - 05/05/18 01:42 05/05/18 04:00 05/05/18 05:16 Temperature 97.8 F Pulse Rate 89 Respiratory Rate 18 Blood Pressure 112/77 Pulse Oximetry 96 97 97 05/05/18 05:52 Temperature Pulse Rate Respiratory Rate Blood Pressure Pulse Oximetry 96 Oxygen Delivery Method Room Air Oxygen Flow Rate 0 Narrative Exam Narrative: HEENT-unremarkable Neck-no bruits Lungs-clear with good breath sounds Heart-irregularly regular Abdomen-benign Neuro-no strength at all right hand or wrist decreased strength right elbow normal or near normal right shoulder, left side at baseline, right leg seems to be at baseline did not test gait however, learn oriented x2 almost 3 (again I think the 04 of May holiday in the middle of the week as thrown him off) Objective Labs Result Diagrams: 05/04/18 00:30 05/04/18 00:30 Labs: Laboratory Results - last 24 hr 05/04/18 05/04/18 11:09 19:34 Troponin I 0.073 H 0.097 H Assessment & Plan Plan: Assessment/Plan Narrative: 1. Acute CVA-patient with CVA with weakness distally of right arm previously was more involved. His progression of symptoms and lack of findings on imaging as well as his ongoing long-term anticoagulation was strongly suggest small vessel disease I believe more than large vessel occlusion. This likely be in the internal capsule although we do not see that lesion on CT imaging. Not a candidate for MRI given his implanted defibrillator. At this point he needs continued skilled therapies, may be would be a candidate for inpatient rehab. If does not improve significantly would likely need to go to group home which of course patient will be very very resistant to. Continue with secondary prevention which includes lipid lowering therapy antihypertensives and anticoagulation as above. 2. UTI-patient growing gram-negative bacilli from urine. Continue with levofloxacin for now. Plan to recheck protime tomorrow given this 3. Atrial fibrillation-continues with AFib in controlled rate. Continue chronic anticoagulation 4. History of cardiomyopathy and chronic congestive heart failure-no evidence of active congestive heart failure or acute congestive heart failure at this point. Continue usual medications including his furosemide. 5. Code status-clarified with patient that he would not want to be resuscitated in the event of a sudden event such as a cardiac or respiratory arrest. This has been his wishes in the past and I therefore made about no code /do not resuscitate for this visit. 6. Elevated troponin-patient with numbers that remained borderline elevated. Plan to recheck again tomorrow morning. Not even high enough to rate him is a type 2 myocardial infarction however. Patient does have known coronary disease and ischemic cardiomyopathy but no active symptoms and I do not believe this is playing a role at this point. 7. Chronic renal failure stage 3-patient's number seems stable. Also plan to recheck along with electrolytes tomorrow. 8. Diabetes-patient on diabetic diet. Has insulin for hyperglycemia ordered. Thus far fingerstick numbers have been acceptable with highest being 148. Quality VTE Deep Vein Thrombosis/Pulmonary Embolism Present on Admission: No
[2018-05-05] MEDS: METOPROLOL ER 50 MG TABLET 100 MG PO (09:46)
[2018-05-05] MEDS: WARFARIN 5 MG TABLET PO (09:47)
[2018-05-05] MEDS: levoFLOXacin 250 MG/50 ML PIGGYBACK 50 MG IV (09:48)
[2018-05-05] MEDS: FUROSEMIDE 20 MG TABLET PO (09:48)
[2018-05-05] MEDS: SODIUM CHLORIDE 0.9% FLUSH 10 ML IV ×2 (09:48→21:07)
--- NOTE | 2018-05-05 10:33 | PT.IPTN ---
Physical Therapy Treatment Note M2 PT-IP Current Condition Start: 05/04/18 13:02 Freq: NEEDED Status: Active Protocol: Document 05/05/18 10:24 AMB (Rec: 05/05/18 10:32 AMB [email or web address]) Physical Therapy Current Condition Current Condition Evaluation Date 05/04/18 Treatment Diagnosis right sided weakness Onset Date 05/03/18 M3 PT-IP Subjective Start: 05/04/18 13:02 Freq: NEEDED Status: Active Protocol: Document 05/05/18 10:24 AMB (Rec: 05/05/18 10:32 AMB [email or web address]) Subjective Physical Therapy Visit Type Type Treatment Note Visit Start Time 10:00 Visit Stop Time 10:20 Total Visit Minutes 20 Number of PIPE FITTER SUPERVISOR MAINTENANCE Visits 0 Physical Therapy Visit Comments Patient Comments Pt willing to get up and try to walk M4 PT-IP Mobility and Gait Start: 05/04/18 13:02 Freq: NEEDED Status: Active Protocol: Document 05/05/18 10:24 AMB (Rec: 05/05/18 10:32 AMB [email or web address]) PT-Transfer Assessment Sit to and From Stand Sit to and from Stand Contact Guard Assistance Equipment Transfer Assistive Device Small Based Quad Cane Transfers Transfer Technique Stand Pivot Transfer Ability Level of Assist Moderate Assistance Comments Mobility Comments Pt with poor use of right hand makes FWW non functional, hard lean right with standing. Tried quad cane, but unsafe with that at this time. Pt able to hold FWW with right hand with constant hand hold assist over right hand. Gait Assessment Gait Gait Assistance Required: Moderate Assistance Distance (Feet) (feet) 2 Assistive Devices Assistive Device Small Based Quad Cane Front Wheeled Walker Comments Gait Comments Pt needed to sit on bed twice due to LOB to the R. M5 PT-IP Objective Assessments Start: 05/04/18 13:02 Freq: NEEDED Status: Active Protocol: Document 05/05/18 10:24 AMB (Rec: 05/05/18 10:32 AMB [email or web address]) Other Assessments Other Other Assessments Pt very hesitant to go to rehab, but would be unsafe at home at this time. Recommend inpatient rehab as patient is very motivated and would likely be able to tolerate 3 hours of therapy, if we can convince him that he is unsafe to go home. He was unable to walk more than 2 feet and had multiple losses of balance to the right that needed ModA to make safe. He would be unable to return home at this time, given his stairs and that his will be the only one home with him. M6 PT-IP Treatment Start: 05/04/18 13:02 Freq: NEEDED Status: Active Protocol: Document 05/04/18 11:45 AMH (Rec: 05/04/18 13:28 AMH [id number]) Physical Therapy Treatment Exercises Exercises Ankle Pumps Gluteal Sets Quad Sets Heel Slides Straight Leg Raises Elbow Flexion/Extension M7 PT-IP Assessment and Plan Start: 05/04/18 13:02 Freq: NEEDED Status: Active Protocol: Document 05/05/18 10:24 AMB (Rec: 05/05/18 10:32 AMB [email or web address]) PT Summary Assessment and Plan Discharge Recommendations PT Discharge Recommendations Acute Rehab
--- NOTE | 2018-05-05 11:00 | PC.NURSE ---
Addendum entered by Meri Hutchison R.N. 05/05/18 13:25: Pt bladder scanned for 307 around 1130. He then voided 150cc of yellow urine, no foul odor. 1326- pt just voided another 150cc. Visiting with his and daughter. Original Note: Addendum entered by Meri Hutchison R.N. 05/05/18 11:13: Pts NIH Stroke scale a 7. Original Note: This morning patients speech is more slurred and he is having difficulty with his r.arm. Pt did not get any sleep last night and was restless, when report given this morning. He is a&ox3 but occasionally will say something that does not make sense. NIH stroke protocal done and pt is having trouble gripping with his r.arm. Speech is hard to understand this am and pt has a slight l.facial droop. aware when rounding on patient and states that it is possible pt may have had another cva. He also states that pts health is up and down. Worked with pt/ot and p.t. up to chair for a couple of hours. RN and SPRAY BOOTH OPERATOR just put pt back to bed and he was a two person assist. Speech is clear now. Used NIH pictures and pt able to describe what was happening in each photo and also able to read words well. He is back to bed now and resting, pt has no pain this morning.
--- NOTE | 2018-05-05 14:25 | PT.IPTN ---
Physical Therapy Treatment Note M2 PT-IP Current Condition Start: 05/04/18 13:02 Freq: NEEDED Status: Active Protocol: Document 05/05/18 10:24 AMB (Rec: 05/05/18 10:32 AMB [email or web address]) Physical Therapy Current Condition Current Condition Evaluation Date 05/04/18 Treatment Diagnosis right sided weakness Onset Date 05/03/18 M3 PT-IP Subjective Start: 05/04/18 13:02 Freq: NEEDED Status: Active Protocol: Document 05/05/18 14:00 GGD (Rec: 05/05/18 15:38 GGD [email or web address]) Subjective Physical Therapy Visit Type Type Treatment Note Visit Start Time 14:00 Visit Stop Time 14:25 Number of GUIDE FOREIGN TOUR Visits 1 Physical Therapy Visit Comments Patient Comments Pt willing to get up, but didn 't like the cane. M4 PT-IP Mobility and Gait Start: 05/04/18 13:02 Freq: NEEDED Status: Active Protocol: Document 05/05/18 14:00 GGD (Rec: 05/05/18 15:38 GGD [email or web address]) PT-Transfer Assessment Sit to and From Stand Sit to and from Stand Minimal Assistance Use of Upper Extremities Comments Mobility Comments Pt had strong posterior lean with standing. Gait Assessment Gait Gait Assistance Required: Moderate Assistance 1 Person Assist Distance (Feet) (feet) 8 Assistive Devices Assistive Device Front Wheeled Walker Kwabena Walker Comments Gait Comments Pt unable to balance with Kwabena walker. He need mod A for right hand on FWW and assist for balance. M5 PT-IP Objective Assessments Start: 05/04/18 13:02 Freq: NEEDED Status: Active Protocol: Document 05/05/18 10:24 AMB (Rec: 05/05/18 10:32 AMB [email or web address]) Other Assessments Other Other Assessments Pt very hesitant to go to rehab, but would be unsafe at home at this time. Recommend inpatient rehab as patient is very motivated and would likely be able to tolerate 3 hours of therapy, if we can convince him that he is unsafe to go home. He was unable to walk more than 2 feet and had multiple losses of balance to the right that needed ModA to make safe. He would be unable to return home at this time, given his stairs and that his will be the only one home with him. M6 PT-IP Treatment Start: 05/04/18 13:02 Freq: NEEDED Status: Active Protocol: Document 05/05/18 14:00 GGD (Rec: 05/05/18 15:38 GGD [email or web address]) Physical Therapy Treatment Exercises Exercises Ankle Pumps Straight Leg Raises Supine Hip Abduction Education Education Provided Safety M7 PT-IP Assessment and Plan Start: 05/04/18 13:02 Freq: NEEDED Status: Active Protocol: Document 05/05/18 14:00 GGD (Rec: 05/05/18 15:38 GGD [email or web address]) PT Summary Assessment and Plan Summary Assessment Summary Pt is impulsive and unable to follow cues. He had a strong posterior lean in stand and with gait. He was unsteady with kwabena walker and keep it to far away from him. He not safe to return home. Frequency of Treatment Frequency Of Treatment Twice a Day Treatment Plan Physical Therapy Treatment Plan Gait Training Therapeutic Exercise Balance Retraining Discharge Planning Neuromuscular Re-ed Other Recommendations and Next Treatment Try gait with FWW and forearm Focus platform on right. Recommendations To Nursing Amount of Assist Needed 2 Person Assist Discharge Recommendations PT Discharge Recommendations Acute Rehab Other Discharge Recommendations needs further evaluation
[2018-05-05] MEDS: POTASSIUM CHLORIDE 20 MEQ TAB PO (16:28)
[2018-05-05] MEDS: DIGOXIN 0.125 MG TABLET PO (16:28)
--- NOTE | 2018-05-05 18:05 | OT.IP.EVAL ---
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/13) Essential tremor (Chronic 04/02/14) Mixed hyperlipidemia (Chronic 09/03/15) Type 2 diabetes mellitus without complication (Chronic 09/03/15) 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) Renal mass (Chronic 06/21/17) Occupational Therapy Inpatient Evaluation/Re-Eval M1 PT/OT-IP Prior Functional Status Start: 05/04/18 13:02 Freq: NEEDED Status: Active Protocol: Document 05/05/18 10:24 AMB (Rec: 05/05/18 10:32 AMB [email or web address]) Medical Review Prior Functional Status Medical History Reviewed Yes Diet/Fluid Consistency Regular Communication communication with nursing as the patient had been sitting up using the urinal and needed help getting back into bed Prior Functional Level (Other details) the patient has some residual left sided weakness from a previous stroke involving his left side but was independent with all ADL's. He had been using his right hand to eat as the left hand was the most affected. Social History Household Members spouse Living Arrangements House M1 PT/OT-IP Prior Functional Status Start: 05/05/18 14:33 Freq: NEEDED Status: Active Protocol: Document 05/05/18 08:30 CCC (Rec: 05/05/18 18:05 CCC [email or web address]) Medical Review Prior Functional Status Medical History Reviewed Yes Diet/Fluid Consistency Regular Communication communication with nursing as the patient had been sitting up using the urinal and needed help getting back into bed Activities of Daily Living and IADL's Pt staes was independent with all needs, used right for needs mostly and was driving. Prior Functional Level (Other details) the patient has some residual left sided weakness from a previous stroke involving his left side but was independent with all ADL's. He had been using his right hand to eat as the left hand was the most affected. Social History Household Members spouse Living Arrangements House Number of Floors (Floors) One Floor Number of Stairs To Enter/Railing? 7 steps and bilateral handrails. Employment Status Retired M2 OT-IP Current Condition Start: 05/05/18 14:33 Freq: Status: Active Protocol: Document 05/05/18 08:30 [facility] (Rec: 05/05/18 18:05 [facility] [email or web address]) Occupational Therapy Current Condition Current Condition Evaluation Date 05/05/18 Treatment Diagnosis 05/03/18 Weight Bearing Status Weight Bearing Status Weight Bear as Tolerated M3 OT- IP Subjective and Pain Start: 05/05/18 14:33 Freq: Status: Active Protocol: Document 05/05/18 08:30 [facility] (Rec: 05/05/18 18:05 [facility] [email or web address]) OT- Subjective Occupational Therapy Visit Type Type Initial Evaluation Visit Start Time 08:30 Visit Stop Time 09:10 Total Visit Minutes 40 Occupational Therapy Visit Comments Patient/Caregiver Goals Pt wanting to go home and does not feel that he needs any rehab. OT Pain Assessment Pain When Pain Assessed At Rest Pain Present Pain Present Denied Pain M4 OT- IP ADL's Start: 05/05/18 14:33 Freq: Status: Active Protocol: Document 05/05/18 08:30 [facility] (Rec: 05/05/18 18:05 [facility] [email or web address]) OT [id number] General Evaluation Self-Feeding Ability Maximum Assistance Areas Needing Assistance Bringing Utensil to Mouth Drinking From Cup/Glass Opening Containers Devices Self-Feeding Devices Adapted Cup Adapted Utensil Adjustable Height Table Comments OT Self-Feeding Comments Pt needing handle of utensil built up so able to use left hand to self feed. Pt unable to drink from cup due to left hand shakey and flaccid for rigth hand. 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 M6 OT- IP Functional Cognition Start: 05/05/18 14:33 Freq: Status: Active Protocol: Document 05/05/18 08:30 [facility] (Rec: 05/05/18 18:05 [facility] [email or web address]) Cognitive Factors Limiting Selfcare Function Cognitive Ability Level of Alertness Alert Patient Orientation Name Place Situation Attention Span Ability Capable of Focused Attention Capable of Sustained Attention Ability to Follow Commands Able to Follow One Step Commands Able to Follow One Step Commands with Repetition Memory Description Short Term Impaired Safety Awareness Underestimates Need for Assistance Problem Solving Ability Unable to Identify Errors Needs Assist to Identify Solutions Cognitive Comments Cognitive Assessment Comments Pt needing simple concrete commands. Pt a bit impulsive at well. Decreased safety awareness to his deficits. Pt having slurred speech, however able to get the words out. OT- Vision and Hearing OT- Hearing Assessment OT- Hearing Assessment WFL M7 OT- IP Mobility and Balance Start: 05/05/18 14:33 Freq: Status: Active Protocol: Document 05/05/18 08:30 [facility] (Rec: 05/05/18 18:05 [facility] [email or web address]) OT- Bed Mobility Assessment Rolling Type of Rolling Roll to Left Level of Assistance Minimal Assistance Supine to Sit Supine to Sit Assist Moderate Assistance Scooting Scooting to Edge of Bed Moderate Assistance OT-Transfer Assessment Sit to and From Stand Sit to and from Stand Moderate Assistance Transfers Transfer Ability Maximum Assistance 1 Person Assistance Technique Transfer Destination Bed Chair Transfer Technique Stand Step Pivot Devices Transfer Assistive Devices None Gait Belt Comments Mobility Comments Pt unable to hold handle of FWW with right hand therefore standpivot transfer. Pt tends to lean into posterior and lateral tilt to the right while sitting and standing. OT- Balance Assessment Sitting Balance and Reactions Static Sitting Balance Ability Fair Dynamic Sitting Balance Ability Poor Standing Balance and Reactions Static Standing Balance Ability Poor Dynamic Standing Balance Ability Poor Comments Other Balance Tests/Deviations/Treatment Pt unable to place right hand : down on the bed and needing asist for right hand placement and to keep from moving due to decreased proprioception and kinesthesia. M8 OT- IP Objective Assessments Start: 05/05/18 14:33 Freq: Status: Active Protocol: Document 05/05/18 08:30 [facility] (Rec: 05/05/18 18:05 [facility] [email or web address]) OT Strength Comments Strength Comments LUE 4/5 , RUE 3-/5 to trace from shoulder to fingers. OT- Coordination Assessment Comments Coordination Comments Pt unable to hold cup and regular utensil with left hand and right hand flaccid at this time. OT-Muscle Tone Assessment Muscle Tone WNL No Comments Muscle Tone Comments Mild increased tone in LUE , and flaccid for RUE. OT Sensation Assessment Location Right Arm Proprioception (Position) Impaired Comments Summary Comments Light touch only able to tell locally for LUE and impaired for all right UE except for rigth elbow. Edema Edema Comments Mild swelling for RUE. M9 OT- IP Assessment and Plan Start: 05/05/18 14:33 Freq: Status: Active Protocol: Document 05/05/18 08:30 [facility] (Rec: 05/05/18 18:05 [facility] [email or web address]) OT Summary Assessment and Plan Potential Rehabilitation Potential Good Analytic Complexity at Evaluation Moderate Summary OT Impairments Pain Strength Balance Coordination Sensation Tone Functional Cognition Functional Mobility Self-Feeding Grooming Dressing Toileting Bathing Toilet Transfers Shower Transfers Progress Towards Goals Slow Progress due to Medical Issues Slow Progress due to Activity Tolerance Slow Progress due to Cognition Assessment Summary Pt very motivated to get better however due to decreased functional use of right hand, prior decreased use of LUE from old CVA, decreased balance, safety awareness, pt now needing extensive assist for all needs . Pt would benefit from skilled rehab versus acute CVA rehab pending progress and improvements. Goals Self-Feeding Goal Minimal Assistance Grooming Goal Minimal Assistance Dressing Goal Moderate Assistance Toileting Goal Moderate Assistance Bathing Goal Moderate Assistance Toilet Transfer Goal Minimal Assistance Shower Transfer Goal Minimal Assistance Patient/Caregiver Education Goal Caregiver Independent Assisting Patient OT-Other Goals Pt to have good understanding for RUE positioning needs as pt neglectful of right arm at this time. Days to Meet Goals 7 Frequency of Treatment Frequency Of Treatment Once a Day Treatment Plan OT Treatment Plan ADL Training Functional Cognition Training Functional Mobility Neuromuscular Re-education Patient/Family Education Discharge Planning Other Treatment Recommendations and Next RUE weight bearing and Treatment Focus incorporation for ADl needs and family training. Discharge Recommendations OT Discharge Recommendations SNF Rehab Acute Rehab Home Equipment Needs BSC, shower chair, HHSP
[2018-05-06] VITALS (11 sets, daily range): BP systolic 119–149; BP diastolic 78–90; PULSE 86–99; RESP 17–20; TEMP 36.1–36.6; O2SAT 94–100
--- NOTE | 2018-05-06 01:56 | PC.NURSE ---
Addendum entered by Libra Wilson R.N. 05/06/18 06:46: Awake most of night again. Denies any pain. Has been calm and cooperative. Continent of urine most of shift. Original Note: Patient is alert and oriented except to day of week/month. Breath sounds CTA with RA sat of 98%. HRR; is on telemetry monitoring with 0000 reading of v-paced w/BBB. Denies nausea. BT present and abdomen is soft. Has been mostly continent of urine using urinal in bed. Denies dysuria, frequency or urgency. Is able to move self in bed. No skin issues noted. NIH score is 5. Still has difficulty recognizing right UE. 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 Right leg strength improved from when first admitted. Denies pain. Fall risk score is high and bed alarm is activated.
[2018-05-06 06:16] LABS: Prothrombin Time 32.6 SECONDS (10.1-12.7)
[2018-05-06 06:28] LABS: Blood Urea Nitrogen 42 mg/dL (9-20); Calcium 9.5 mg/dL (8.4-10.2); Carbon Dioxide 25 mmol/L (22-32); Chloride 103 mmol/L (98-107); Estimated Glomerular Filt Rate 48.6 mL/min (>60); Glucose 112 mg/dL (80-110); HEMOLYSIS < 15 (0-50); Potassium 4.6 mmol/L (3.4-5.1); Sodium 139 mmol/L (137-145)
[2018-05-06 06:33] LABS: Troponin I 0.076 ng/mL (0.01-0.034)
[2018-05-06] MEDS: GEMFIBROZIL 600 MG TABLET PO ×2 (06:38→16:51)
--- NOTE | 2018-05-06 07:54 | P.PN_ITS ---
Subjective Date Patient Seen: 05/06/18 Time Patient Seen: 07:52 Interval history: Patient said he had a ?boring? day yesterday. Was able to be up to the chair and/or to bathroom but required 2 people for assistance along with a walker and he persistently drifted off to the right and/or had right leg weakness. No new complaints or issues Patient does tell me he is willing to consider going to [place] for rehab. Exam Vital Signs (past 8 hours): - 05/06/18 00:59 05/06/18 01:53 05/06/18 04:07 Temperature 97.5 F L 97.0 F L Pulse Rate 99 H 90 Respiratory Rate 17 20 Blood Pressure 140/89 H 125/84 H Pulse Oximetry 97 98 97 Oxygen Delivery Method Room Air Oxygen Flow Rate 0 Narrative Exam Narrative: Unchanged from previous, still right upper extremity distal weakness unchanged Objective Labs Result Diagrams: 05/04/18 00:30 05/06/18 05:48 Labs: Laboratory Results - last 24 hr 05/06/18 05/06/18 05/06/18 05:48 05:48 05:48 PT 32.6 H D INR 3.0 H Sodium 139 Potassium 4.6 Chloride 103 Carbon Dioxide 25 BUN 42 H Creatinine 1.40 H Estimated GFR 48.6 L BUN/Creatinine Ratio 30.0 H Glucose 112 H Calcium 9.5 Troponin I 0.076 H Assessment & Plan Plan: Assessment/Plan Narrative: 1. Acute CVA-patient appears to be relatively fixed in stable. Not really improving. Had initial improvement within the 1st 24 hr but is certainly plateaued. He certainly cannot return home in his current state. I would advocate for admission to intensive inpatient rehab as I think patient is certainly more than well motivated. If he fails to improve in that forearm then he will need long-term care. If he improves of course then many more options are available. 2. UTI-patient growing E coli that is sensitive to levofloxacin. Will switch to oral levofloxacin 3. Atrial fibrillation-continues with AFib in controlled rate. Discontinue telemetry as patient's rates been controlled and he is a do not resuscitate patient as well. Continue on warfarin. INR bit elevated over previous today. Plan to recheck in 48 hr. 4. History congestive heart failure-appears stable without evidence of acute congestive heart failure at this point 5. Elevated troponin-repeat numbers this morning show decline. None became abnormal. Did not believe there is actual cardiac ischemia 6. Chronic renal failure stage 3-numbers relatively stable. Plan to recheck in 48 hr with repeat protime 7. Diabetes-number still very well controlled. No change in therapy Overall patient is clinically stable. Very slow if any neurologic improvement however. Patient would certainly benefit from inpatient rehab and I would suggest we focused our energy is on transfer and admission to [facility] inpatient rehab in [place]. If that is not an option then I would focus on placing patient in half-way in [place] or [place], as local facility is not an option for my patients. If half-way bed could be found on [facility] that would also be appropriate. Quality VTE Deep Vein Thrombosis/Pulmonary Embolism Present on Admission: No
[2018-05-06] MEDS: POTASSIUM CHLORIDE 20 MEQ TAB PO ×2 (09:53→16:51)
[2018-05-06] MEDS: FUROSEMIDE 20 MG TABLET PO (09:55)
[2018-05-06] MEDS: levoFLOXacin 250 MG TABLET PO (09:55)
[2018-05-06] MEDS: METOPROLOL ER 50 MG TABLET 100 MG PO (09:55)
[2018-05-06] MEDS: WARFARIN 5 MG TABLET PO (09:55)
[2018-05-06] MEDS: SODIUM CHLORIDE 0.9% FLUSH 10 ML IV ×2 (10:01→21:52)
--- NOTE | 2018-05-06 10:13 | PC.NURSE ---
Day shift: Pt off tele per MD orders. ICU aware. Pt OOB to BSC in BR to take a shower. OT in BR with Pt. Pt has been calm and cooperative with care. Makes needs know proper. He does have a tremor LUE that makes it difficult for him to take pills, eat and do other ADL type activities. 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 He does not have mush control at all of that hand. Will continue to monitor.
--- NOTE | 2018-05-06 10:15 | PT.IPTN ---
Current Diagnoses Cerebral infarction, unspecified (05/04/18) Physical Therapy Treatment Note M2 PT-IP Current Condition Start: 05/04/18 13:02 Freq: NEEDED Status: Active Protocol: Document 05/05/18 10:24 AMB (Rec: 05/05/18 10:32 AMB [email or web address]) Physical Therapy Current Condition Current Condition Evaluation Date 05/04/18 Treatment Diagnosis right sided weakness Onset Date 05/03/18 M3 PT-IP Subjective Start: 05/04/18 13:02 Freq: NEEDED Status: Active Protocol: Document 05/06/18 10:15 GGD (Rec: 05/06/18 11:48 GGD [email or web address]) Subjective Physical Therapy Visit Type Type Treatment Note Visit Start Time 09:50 Visit Stop Time 10:15 Total Visit Minutes 25 Number of AIRPLANE CAPTAIN Visits 2 Physical Therapy Visit Comments Patient Comments Pt would like to shower. M4 PT-IP Mobility and Gait Start: 05/04/18 13:02 Freq: NEEDED Status: Active Protocol: Document 05/06/18 10:15 GGD (Rec: 05/06/18 11:48 GGD [email or web address]) PT-Bed Mobility Assessment Supine to Sit Supine to Sit Minimal Assistance 1 Person Assistance Scooting Scooting to Edge of Bed Contact Guard Assistance PT-Transfer Assessment Sit to and From Stand Sit to and from Stand Contact Guard Assistance Equipment Transfer Assistive Device Front Wheeled Walker Comments Mobility Comments Pt need assist with right UE. Gait Assessment Gait Gait Assistance Required: Minimum Assistance Distance (Feet) (feet) 35 Assistive Devices Assistive Device Front Wheeled Walker Gait Deviations General Gait Pattern Decreased Stride Length Decreased Feet Clearance Comments Gait Comments Pt ambulated with FWW with forearm platefrom on the right . He need assist with FWW management and right UE. M5 PT-IP Objective Assessments Start: 05/04/18 13:02 Freq: NEEDED Status: Active Protocol: Document 05/05/18 10:24 AMB (Rec: 05/05/18 10:32 AMB [email or web address]) Other Assessments Other Other Assessments Pt very hesitant to go to rehab, but would be unsafe at home at this time. Recommend inpatient rehab as patient is very motivated and would likely be able to tolerate 3 hours of therapy, if we can convince him that he is unsafe to go home. He was unable to walk more than 2 feet and had multiple losses of balance to the right that needed ModA to make safe. He would be unable to return home at this time, given his stairs and that his will be the only one home with him. M6 PT-IP Treatment Start: 05/04/18 13:02 Freq: NEEDED Status: Active Protocol: Document 05/05/18 14:00 GGD (Rec: 05/05/18 15:38 GGD [email or web address]) Physical Therapy Treatment Exercises Exercises Ankle Pumps Straight Leg Raises Supine Hip Abduction Education Education Provided Safety M7 PT-IP Assessment and Plan Start: 05/04/18 13:02 Freq: NEEDED Status: Active Protocol: Document 05/06/18 10:15 GGD (Rec: 05/06/18 11:48 GGD [email or web address]) PT Summary Assessment and Plan Summary Assessment Summary Pt able to progress gait and improved balance. He had no posterior lean in standing. He did have neglect his right side. He is impulsive and not consistant following cues. Frequency of Treatment Frequency Of Treatment Twice a Day Treatment Plan Other Recommendations and Next Treatment Progress gait and balance. Focus Recommendations To Nursing Amount of Assist Needed 1 Person Assist Discharge Recommendations PT Discharge Recommendations Acute Rehab Other Discharge Recommendations needs further evaluation
--- NOTE | 2018-05-06 13:45 | OT.IP.TRT ---
Current Diagnoses Cerebral infarction, unspecified (05/04/18) Occupational Therapy Treatment Note M2 OT-IP Current Condition Start: 05/05/18 14:33 Freq: Status: Active Protocol: Document 05/06/18 10:38 ADH (Rec: 05/06/18 13:45 ADH [id number]) Occupational Therapy Current Condition Current Condition Evaluation Date 05/05/18 Treatment Diagnosis 05/03/18 Weight Bearing Status Weight Bearing Status Weight Bear as Tolerated M3 OT- IP Subjective and Pain Start: 05/05/18 14:33 Freq: Status: Active Protocol: Document 05/06/18 10:38 ADH (Rec: 05/06/18 13:45 ADH [id number]) OT- Subjective Occupational Therapy Visit Type Type Treatment Note Visit Start Time 10:07 Visit Stop Time 10:38 Total Visit Minutes 31 Occupational Therapy Visit Comments Patient Comments Pt able to make needs known and follow simple cues with visual gestures. OT Pain Assessment Pain When Pain Assessed During Mobility Pain Present Pain Present Denied Pain M4 OT- IP ADL's Start: 05/05/18 14:33 Freq: Status: Active Protocol: Document 05/06/18 10:38 ADH (Rec: 05/06/18 13:45 ADH [id number]) OT ADL-Dressing General Eval Upper Body Dressing Ability Maximum Assistance Lower Body Dressing Ability Maximum Assistance Areas Needing Assistance Pull-Over Shirt Underpants/Brief Socks Comments OT Dressing Comments Pt with good attempts to use RUE during dressing task, needed cuing to look at hands when performing tasks d/t global neglect and impaired coordination. Pt with moderate voluntary movement of RUE, able to flex at shoulder/elbow when appropriate. OT ADL-Bathing Bathing Type Bathing Type Shower General Evaluation Bathing Ability Maximal Assistance Areas Needing Assistance Retrieving/Setting Up Items Wash/Dry Upper Body Wash/Dry Back Wash/Dry Perineal Area Wash/Dry Lower Extremities Devices Bathing Equipment Shower Chair with Arms Grab Bars Comments OT Bathing Comments Pt needing max A for seated TB bathing this session. Pt attempting to use LUE to hold washcloth, dropped it 5+ times without awareness, needing cues to look for washcloth and retrieve. When not cued, pt maintained hand as if gripping with washcloth and scrubbed self with hand only. Pt able to lift RUE to scrub arm, able to wash whole chest, face, and pericare; max A for all other tasks. M6 OT- IP Functional Cognition Start: 05/05/18 14:33 Freq: Status: Active Protocol: Document 05/05/18 08:30 [facility] (Rec: 05/05/18 18:05 [facility] [email or web address]) Cognitive Factors Limiting Selfcare Function Cognitive Ability Level of Alertness Alert Patient Orientation Name Place Situation Attention Span Ability Capable of Focused Attention Capable of Sustained Attention Ability to Follow Commands Able to Follow One Step Commands Able to Follow One Step Commands with Repetition Memory Description Short Term Impaired Safety Awareness Underestimates Need for Assistance Problem Solving Ability Unable to Identify Errors Needs Assist to Identify Solutions Cognitive Comments Cognitive Assessment Comments Pt needing simple concrete commands. Pt a bit impulsive at well. Decreased safety awareness to his deficits. OT- Vision and Hearing OT- Hearing Assessment OT- Hearing Assessment WFL M7 OT- IP Mobility and Balance Start: 05/05/18 14:33 Freq: Status: Active Protocol: Document 05/06/18 10:38 ADH (Rec: 05/06/18 13:45 ADH [id number]) OT-Transfer Assessment Sit to and From Stand Sit to and from Stand Moderate Assistance 1 Person Assistance Transfers Transfer Ability Moderate Assistance 2 Person Assistance Technique Transfer Destination Bed Shower Stall Transfer Technique Stand Step Pivot Devices Transfer Assistive Devices Gait Belt Front Wheeled Walker OT- Gait Assessment Gait Gait Assistance Required: Moderate Assistance Distance (Feet) (feet) 15 Assistive Devices Assistive Device Gait Belt Front Wheeled Walker Comments Gait Ability Comments Pt needing cues and assistance to turn platform walker appropriately and safely, otherwise fair path finding and min A for balance during mobility. OT- Balance Assessment Sitting Balance and Reactions Static Sitting Balance Ability Good Dynamic Sitting Balance Ability Fair Standing Balance and Reactions Static Standing Balance Ability Good M8 OT- IP Objective Assessments Start: 05/05/18 14:33 Freq: Status: Active Protocol: Document 05/05/18 08:30 [facility] (Rec: 05/05/18 18:05 [facility] [email or web address]) OT Strength Comments Strength Comments LUE 4/5 , RUE 3-/5 to trace from shoulder to fingers. OT- Coordination Assessment Comments Coordination Comments Pt unable to hold cup and regular utensil with left hand and right hand flaccid at this time. OT-Muscle Tone Assessment Muscle Tone WNL No Comments Muscle Tone Comments Mild increased tone in LUE , and flaccid for RUE. OT Sensation Assessment Location Right Arm Proprioception (Position) Impaired Comments Summary Comments Light touch only able to tell locally for LUE and impaired for all right UE except for rigth elbow. Edema Edema Comments Mild swelling for RUE. M9 OT- IP Assessment and Plan Start: 05/05/18 14:33 Freq: Status: Active Protocol: Document 05/06/18 10:38 ADH (Rec: 05/06/18 13:45 ADH [id number]) OT Summary Assessment and Plan Summary OT Impairments Coordination Sensation Tone Assessment Summary Pt with good improvement in functional and volitional use of RUE s/p CVA, anticipate pt would continue to benefit from therapy in order to maximize return of RUE. Pt continuing to demo moderate/severe neglect of R side. Goals Dressing Goal Moderate Assistance Toileting Goal Moderate Assistance Toilet Transfer Goal Minimal Assistance Frequency of Treatment Frequency Of Treatment Once a Day Treatment Plan OT Treatment Plan ADL Training Functional Mobility Discharge Recommendations OT Discharge Recommendations Acute Rehab Other Discharge Recommendations Pt showing good return in RUE at this time, limited by previous CVA affecting LUE. Pt at opportune window for intense rehab for maximum return for functional use at this time. Pt demo'd home exercise program in bed s/p treatment session, with good activity tolerance and strength.
--- NOTE | 2018-05-06 15:00 | PT.IPTN ---
Current Diagnoses Cerebral infarction, unspecified (05/04/18) Physical Therapy Treatment Note M2 PT-IP Current Condition Start: 05/04/18 13:02 Freq: NEEDED Status: Active Protocol: Document 05/05/18 10:24 AMB (Rec: 05/05/18 10:32 AMB [email or web address]) Physical Therapy Current Condition Current Condition Evaluation Date 05/04/18 Treatment Diagnosis right sided weakness Onset Date 05/03/18 M3 PT-IP Subjective Start: 05/04/18 13:02 Freq: NEEDED Status: Active Protocol: Document 05/06/18 15:00 GGD (Rec: 05/06/18 15:41 GGD [email or web address]) Subjective Physical Therapy Visit Type Type Treatment Note Visit Start Time 14:30 Visit Stop Time 15:00 Total Visit Minutes 30 Number of PRESCHOOL EDUCATION DIRECTOR Visits 3 Physical Therapy Visit Comments Patient Comments Pt states had a nap and is ready to walk. M4 PT-IP Mobility and Gait Start: 05/04/18 13:02 Freq: NEEDED Status: Active Protocol: Document 05/06/18 15:00 GGD (Rec: 05/06/18 15:41 GGD [email or web address]) PT-Bed Mobility Assessment Supine to Sit Supine to Sit Contact Guard Assistance Head of Bed Elevated Scooting Scooting to Edge of Bed Standby Assistance PT-Transfer Assessment Sit to and From Stand Sit to and from Stand Contact Guard Assistance Equipment Transfer Assistive Device Front Wheeled Walker Transfers Transfer Destination Bed Toilet Comments Mobility Comments Pt need assist and cues for right UE. Gait Assessment Gait Gait Assistance Required: Moderate Assistance Distance (Feet) (feet) 30 Assistive Devices Assistive Device Front Wheeled Walker Gait Deviations General Gait Pattern Decreased Stride Length Decreased Feet Clearance Narrow Based Gait Comments Gait Comments Pt ambulated with FWW with Right side platform . He did need assist with managment and control of FWW. He is unsteady with gait and had mild LOB. M5 PT-IP Objective Assessments Start: 05/04/18 13:02 Freq: NEEDED Status: Active Protocol: Document 05/05/18 10:24 AMB (Rec: 05/05/18 10:32 AMB [email or web address]) Other Assessments Other Other Assessments Pt very hesitant to go to rehab, but would be unsafe at home at this time. Recommend inpatient rehab as patient is very motivated and would likely be able to tolerate 3 hours of therapy, if we can convince him that he is unsafe to go home. He was unable to walk more than 2 feet and had multiple losses of balance to the right that needed ModA to make safe. He would be unable to return home at this time, given his stairs and that his will be the only one home with him. M6 PT-IP Treatment Start: 05/04/18 13:02 Freq: NEEDED Status: Active Protocol: Document 05/05/18 14:00 GGD (Rec: 05/05/18 15:38 GGD [email or web address]) Physical Therapy Treatment Exercises Exercises Ankle Pumps Straight Leg Raises Supine Hip Abduction Education Education Provided Safety M7 PT-IP Assessment and Plan Start: 05/04/18 13:02 Freq: NEEDED Status: Active Protocol: Document 05/06/18 15:00 GGD (Rec: 05/06/18 15:41 GGD [email or web address]) PT Summary Assessment and Plan Summary Assessment Summary Pt able to progress gait. He did have LOB and need assist. He still a fall risk and is implusive with mobility. Frequency of Treatment Frequency Of Treatment Twice a Day Treatment Plan Other Recommendations and Next Treatment Progress gait and balance. Focus Recommendations To Nursing Amount of Assist Needed 1 Person Assist Discharge Recommendations PT Discharge Recommendations Acute Rehab Other Discharge Recommendations needs further evaluation
--- NOTE | 2018-05-06 16:08 | CM.DPC ---
DCP/continued: Reviewed chart. Current d/c plan recommendation is SNF vs. inpatient rehab at time of d/c. MANUFACTURER'S SERVICE REPRESENTATIVE met with patient this AM explained CM/SW role. Patient reports that he plans to return home when medically stable. Discussed need for rehab and patient reports that he had stroke 20years ago to date and did fine without rehabilitation. During interview MANUFACTURER'S SERVICE REPRESENTATIVE had difficulty understanding portions of patient's speech. Patient confirms that he resides with his spouse/Dolly in [place] Medicare SNF list left in room this AM. MANUFACTURER'S SERVICE REPRESENTATIVE asked RN to notify CM team when spouse arrives. Spouse arrived today and unfortunately MANUFACTURER'S SERVICE REPRESENTATIVE missed meeting with her. Patient continues to report that he plans to go home. P: CM team to follow up with patient and spouse on 05-07-18. MANUFACTURER'S SERVICE REPRESENTATIVE will leave not for d/c bonbon cream warmer re: safe plan. indicates patient might be good candidate for inpatient rehab. Other options include SNF vs. HH. VERNELL Mar
[2018-05-06] MEDS: INSULIN ASPART 100 UNIT/ML INSULN PEN SUBCUT (16:55)
[2018-05-06] MEDS: DIGOXIN 0.125 MG TABLET PO (17:53)
[2018-05-07] VITALS (10 sets, daily range): BP systolic 105–136; BP diastolic 78–90; PULSE 73–96; RESP 16–20; TEMP 36.2–36.7; O2SAT 96–99
[2018-05-07] MEDS: GEMFIBROZIL 600 MG TABLET PO ×2 (07:04→16:39)
[2018-05-07] MEDS: WARFARIN 5 MG TABLET PO (10:13)
[2018-05-07] MEDS: POTASSIUM CHLORIDE 20 MEQ TAB PO ×2 (10:13→16:39)
[2018-05-07] MEDS: levoFLOXacin 250 MG TABLET PO (10:13)
[2018-05-07] MEDS: METOPROLOL ER 50 MG TABLET 100 MG PO (10:14)
[2018-05-07] MEDS: SODIUM CHLORIDE 0.9% FLUSH 10 ML IV ×2 (10:14→20:36)
[2018-05-07] MEDS: FUROSEMIDE 20 MG TABLET PO (10:14)
--- NOTE | 2018-05-07 10:48 | PM.PN.1 ---
Subjective Date Patient Seen: 05/07/18 Time Patient Seen: 10:48 Interval history: Patient is somewhat somnolent but easily arousable. Really has no new complaints. Still desiring to go home and I am not sure she fully understands that he is too debilitated after his stroke to be managed in the home setting until or unless he improves. Was open yesterday to placement at rehab in [place] and still considers that an option. Exam Vital Signs (past 8 hours): - 05/07/18 03:31 05/07/18 07:00 05/07/18 08:00 Temperature 97.7 F 98 F Pulse Rate 96 H 73 Respiratory Rate 18 20 Blood Pressure 131/90 H 136/90 H Pulse Oximetry 98 99 99 Oxygen Delivery Method Room Air Oxygen Flow Rate 0 Narrative Exam Narrative: Unchanged from previous, right upper extremity wrist and hand weakness/plus [place] still present. Decreased strength that elbow and shoulder, all unchanged from previous Objective Labs Result Diagrams: 05/04/18 00:30 05/06/18 05:48 Assessment & Plan Plan: Assessment/Plan Narrative: 1. Acute CVA-patient appears to have plateaued. Certainly believe inpatient rehab would be inappropriate discharge destination for this patient. Hopefully we can arrange for this sometime in the next day or 2. 2. UTI-continue with oral levofloxacin for E coli 3. Atrial fibrillation-continues to have controlled rate. Plan to recheck protime tomorrow given his slight elevation in his INR yesterday 4. Chronic renal failure-rechecking numbers tomorrow with repeat protime 5. Diabetes-numbers continue be very well controlled. No change in therapy. Overall patient doing well. He should be ready for discharge hopefully to inpatient rehab hopefully next 24-48 hours based on ability a facility to accept. I believe he is medically ready within that time frame as well. Note: Greater than 30 minutes was spent evaluating the patient on the floor, including examining the patient, discussing clinical course with clinical and nursing staff, reviewing clinical course in the computer, preparing documentation and writing orders for continued management of care, discussing status with family as appropriate, reviewing plans for the next 24 hours with both patient/family and nursing staff as appropriate. Quality VTE Deep Vein Thrombosis/Pulmonary Embolism Present on Admission: No
--- NOTE | 2018-05-07 11:21 | OT.IP.TRT ---
Current Diagnoses Cerebral infarction, unspecified (05/04/18) Occupational Therapy Treatment Note M2 OT-IP Current Condition Start: 05/05/18 14:33 Freq: Status: Active Protocol: Document 05/07/18 09:04 ADH (Rec: 05/07/18 11:21 ADH [id number]) Occupational Therapy Current Condition Current Condition Evaluation Date 05/05/18 Treatment Diagnosis 05/03/18 Weight Bearing Status Weight Bearing Status Weight Bear as Tolerated M3 OT- IP Subjective and Pain Start: 05/05/18 14:33 Freq: Status: Active Protocol: Document 05/07/18 09:04 ADH (Rec: 05/07/18 11:21 ADH [id number]) OT- Subjective Occupational Therapy Visit Type Type Treatment Note Visit Start Time 09:04 Visit Stop Time 09:40 Total Visit Minutes 36 Occupational Therapy Visit Comments Patient Comments Pt agreeable to am session focusing on bADLs OT Pain Assessment Pain When Pain Assessed After Treatment Pain Present Pain Present Denied Pain M4 OT- IP ADL's Start: 05/05/18 14:33 Freq: Status: Active Protocol: Document 05/07/18 09:04 ADH (Rec: 05/07/18 11:21 ADH [id number]) OT UBD-Ckbb-Niryaup General Evaluation Self-Feeding Ability Total Assistance Areas Needing Assistance Bringing Utensil to Mouth Cutting Food Drinking From Cup/Glass Loading Utensil Opening Containers Comments OT Self-Feeding Comments Pt's R dominant hand affected by acute CVA, L hand affected by previous CVA. Pt requiring Kizh-ebkv-[id number] or total A to eat d/t poor coordination of limbs, R side neglect, impaired fine motor coordination, impaired bUE sensation. OT ADL-Grooming General Evaluation Grooming Ability Moderate Assistance Areas Needing Assistance Retrieving/Set-up of Grooming Items Face Washing Comments OT Grooming Comments Pt needing max A to grasp washcloth with R vs L hand, hand over hand assistance for thoroughness and coordination. OT ADL-Oral Care General Eval Oral Care Ability Maximum Assistance Areas of Assistance Brushing Teeth Retrieving/Set-Up of Items Comments Oral Care Comments Pt needing A for oral care d/t decreased ability to manipulate toothbrush in hand, decreased ability to coordinate, and decreased attention to R vs L sides. OT ADL-Dressing General Eval Upper Body Dressing Ability Moderate Assistance Areas Needing Assistance Pull-Over Shirt Comments OT Dressing Comments Improved use of RUE during gown doffing/donning; needing max verbal and tactile cues to attend to R UE and grasp hand effectively d/t weak L hand grasp. M6 OT- IP Functional Cognition Start: 05/05/18 14:33 Freq: Status: Active Protocol: Document 05/05/18 08:30 [facility] (Rec: 05/05/18 18:05 [facility] [email or web address]) Cognitive Factors Limiting Selfcare Function Cognitive Ability Level of Alertness Alert Patient Orientation Name Place Situation Attention Span Ability Capable of Focused Attention Capable of Sustained Attention Ability to Follow Commands Able to Follow One Step Commands Able to Follow One Step Commands with Repetition Memory Description Short Term Impaired Safety Awareness Underestimates Need for Assistance Problem Solving Ability Unable to Identify Errors Needs Assist to Identify Solutions Cognitive Comments Cognitive Assessment Comments Pt needing simple concrete commands. Pt a bit impulsive at well. Decreased safety awareness to his deficits. OT- Vision and Hearing OT- Hearing Assessment OT- Hearing Assessment WFL M7 OT- IP Mobility and Balance Start: 05/05/18 14:33 Freq: Status: Active Protocol: Document 05/06/18 10:38 ADH (Rec: 05/06/18 13:45 ADH [id number]) OT-Transfer Assessment Sit to and From Stand Sit to and from Stand Moderate Assistance 1 Person Assistance Transfers Transfer Ability Moderate Assistance 2 Person Assistance Technique Transfer Destination Bed Shower Stall Transfer Technique Stand Step Pivot Devices Transfer Assistive Devices Gait Belt Front Wheeled Walker OT- Gait Assessment Gait Gait Assistance Required: Moderate Assistance Distance (Feet) (feet) 15 Assistive Devices Assistive Device Gait Belt Front Wheeled Walker Comments Gait Ability Comments Pt needing cues and assistance to turn platform walker appropriately and safely, otherwise fair path finding and min A for balance during mobility. OT- Balance Assessment Sitting Balance and Reactions Static Sitting Balance Ability Good Dynamic Sitting Balance Ability Fair Standing Balance and Reactions Static Standing Balance Ability Good M8 OT- IP Objective Assessments Start: 05/05/18 14:33 Freq: Status: Active Protocol: Document 05/05/18 08:30 [facility] (Rec: 05/05/18 18:05 [facility] [email or web address]) OT Strength Comments Strength Comments LUE 4/5 , RUE 3-/5 to trace from shoulder to fingers. OT- Coordination Assessment Comments Coordination Comments Pt unable to hold cup and regular utensil with left hand and right hand flaccid at this time. OT-Muscle Tone Assessment Muscle Tone WNL No Comments Muscle Tone Comments Mild increased tone in LUE , and flaccid for RUE. OT Sensation Assessment Location Right Arm Proprioception (Position) Impaired Comments Summary Comments Light touch only able to tell locally for LUE and impaired for all right UE except for rigth elbow. Edema Edema Comments Mild swelling for RUE. M9 OT- IP Assessment and Plan Start: 05/05/18 14:33 Freq: Status: Active Protocol: Document 05/07/18 09:04 ADH (Rec: 05/07/18 11:21 ADH [id number]) OT Summary Assessment and Plan Summary OT Impairments Strength Balance Coordination Sensation Tone Functional Cognition Functional Mobility Progress Towards Goals Slow Progress due to Cognition Assessment Summary Pt demonstrating promising return in RUE bicep/deltoid s/ p CVA, however continues to be severely impaired strength, coordination, weight bearing. Pt continues to demo R side neglect and some global aphasia. Pt's recovery affected by baseline weak and impaired LUE. Pt with great participation in functional tasks, moderately confused but able to follow 1-step directions. Goals Toileting Goal Minimal Assistance Toilet Transfer Goal Contact Guard Assistance Discharge Recommendations OT Discharge Recommendations Acute Rehab
--- NOTE | 2018-05-07 11:21 | PT.IPTN ---
Current Diagnoses Cerebral infarction, unspecified (05/04/18) Physical Therapy Treatment Note M2 PT-IP Current Condition Start: 05/04/18 13:02 Freq: NEEDED Status: Active Protocol: Document 05/05/18 10:24 AMB (Rec: 05/05/18 10:32 AMB [email or web address]) Physical Therapy Current Condition Current Condition Evaluation Date 05/04/18 Treatment Diagnosis right sided weakness Onset Date 05/03/18 M3 PT-IP Subjective Start: 05/04/18 13:02 Freq: NEEDED Status: Active Protocol: Document 05/07/18 11:12 GGD (Rec: 05/07/18 11:21 GGD [email or web address]) Subjective Physical Therapy Visit Type Type Treatment Note Visit Start Time 10:45 Visit Stop Time 11:10 Total Visit Minutes 25 Number of RUBBER STAMP DIE INSPECTOR Visits 4 Physical Therapy Visit Comments Patient Comments Pt states that he needs to use the bathroom. M4 PT-IP Mobility and Gait Start: 05/04/18 13:02 Freq: NEEDED Status: Active Protocol: Document 05/07/18 11:12 GGD (Rec: 05/07/18 11:21 GGD [email or web address]) PT-Transfer Assessment Sit to and From Stand Sit to and from Stand Contact Guard Assistance Use of Upper Extremities Equipment Transfer Assistive Device Front Wheeled Walker Transfers Transfer Destination Chair Toilet Gait Assessment Gait Gait Assistance Required: Moderate Assistance Distance (Feet) (feet) 100 Gait Deviations General Gait Pattern Decreased Stride Length Decreased Feet Clearance Narrow Based Gait Factors Limiting Gait Function Factors Limiting Gait Function Decreased Activity Tolerance Decreased Strength Difficulty Following Directions Incoordination Poor Balance Poor Safety Awareness Comments Gait Comments Pt ambulated with FWW with right side platform. He need CGA for balance and mod a for FWW management. M5 PT-IP Objective Assessments Start: 05/04/18 13:02 Freq: NEEDED Status: Active Protocol: Document 05/05/18 10:24 AMB (Rec: 05/05/18 10:32 AMB [email or web address]) Other Assessments Other Other Assessments Pt very hesitant to go to rehab, but would be unsafe at home at this time. Recommend inpatient rehab as patient is very motivated and would likely be able to tolerate 3 hours of therapy, if we can convince him that he is unsafe to go home. He was unable to walk more than 2 feet and had multiple losses of balance to the right that needed ModA to make safe. He would be unable to return home at this time, given his stairs and that his will be the only one home with him. M6 PT-IP Treatment Start: 05/04/18 13:02 Freq: NEEDED Status: Active Protocol: Document 05/05/18 14:00 GGD (Rec: 05/05/18 15:38 GGD [email or web address]) Physical Therapy Treatment Exercises Exercises Ankle Pumps Straight Leg Raises Supine Hip Abduction Education Education Provided Safety M7 PT-IP Assessment and Plan Start: 05/04/18 13:02 Freq: NEEDED Status: Active Protocol: Document 05/07/18 11:12 GGD (Rec: 05/07/18 11:21 GGD [email or web address]) PT Summary Assessment and Plan Summary Assessment Summary Pt had backwards LOB with standing from toilet. He was more unsteading with transfer and gait. Frequency of Treatment Frequency Of Treatment Twice a Day Treatment Plan Other Recommendations and Next Treatment Progress gait and balance. Focus Recommendations To Nursing Amount of Assist Needed 1 Person Assist Discharge Recommendations PT Discharge Recommendations Acute Rehab
[2018-05-07] MEDS: INSULIN ASPART 100 UNIT/ML INSULN PEN SUBCUT (12:49)
--- NOTE | 2018-05-07 13:45 | PC.NURSE ---
day shift pt denies pain. up to chair with 1 person assist. had BM and large unmeasured urination in the toilet. some slurring with speech but overall very understandable. 1:1 feed. Pt is unable to coordinate his arm/hand movements to feed himself. no issues with swallowing observed. present. hourly rounding provided, call light within reach.
--- NOTE | 2018-05-07 14:40 | PT.IPTN ---
Current Diagnoses Cerebral infarction, unspecified (05/04/18) Physical Therapy Treatment Note M2 PT-IP Current Condition Start: 05/04/18 13:02 Freq: NEEDED Status: Active Protocol: Document 05/05/18 10:24 AMB (Rec: 05/05/18 10:32 AMB [email or web address]) Physical Therapy Current Condition Current Condition Evaluation Date 05/04/18 Treatment Diagnosis right sided weakness Onset Date 05/03/18 M3 PT-IP Subjective Start: 05/04/18 13:02 Freq: NEEDED Status: Active Protocol: Document 05/07/18 14:40 GGD (Rec: 05/07/18 15:36 GGD [id number]) Subjective Physical Therapy Visit Type Type Treatment Note Visit Start Time 14:15 Visit Stop Time 14:40 Total Visit Minutes 25 Number of BIOMASS BOILER OPERATOR Visits 5 Physical Therapy Visit Comments Patient Comments Pt states he is ready to walk. M4 PT-IP Mobility and Gait Start: 05/04/18 13:02 Freq: NEEDED Status: Active Protocol: Document 05/07/18 14:40 GGD (Rec: 05/07/18 15:36 GGD [id number]) PT-Bed Mobility Assessment Sit to Supine Sit to Supine Standby Assistance Scooting Scooting to Edge of Bed Standby Assistance PT-Transfer Assessment Sit to and From Stand Sit to and from Stand Contact Guard Assistance Use of Upper Extremities Transfers Transfer Destination Bed Comments Mobility Comments He need cues for hand placement and control. Gait Assessment Gait Gait Assistance Required: Minimum Assistance Moderate Assistance Distance (Feet) (feet) 150 Assistive Devices Assistive Device Front Wheeled Walker Gait Deviations General Gait Pattern Decreased Stride Length Decreased Feet Clearance Narrow Based Gait Factors Limiting Gait Function Factors Limiting Gait Function Decreased Activity Tolerance Decreased Strength Difficulty Following Directions Incoordination Poor Balance Poor Safety Awareness Comments Gait Comments Pt ambulated with FWW with right side platform. He need CGA for balance and min to mod a for FWW management. M5 PT-IP Objective Assessments Start: 05/04/18 13:02 Freq: NEEDED Status: Active Protocol: Document 05/05/18 10:24 AMB (Rec: 05/05/18 10:32 AMB [email or web address]) Other Assessments Other Other Assessments Pt very hesitant to go to rehab, but would be unsafe at home at this time. Recommend inpatient rehab as patient is very motivated and would likely be able to tolerate 3 hours of therapy, if we can convince him that he is unsafe to go home. He was unable to walk more than 2 feet and had multiple losses of balance to the right that needed ModA to make safe. He would be unable to return home at this time, given his stairs and that his will be the only one home with him. M6 PT-IP Treatment Start: 05/04/18 13:02 Freq: NEEDED Status: Active Protocol: Document 05/05/18 14:00 GGD (Rec: 05/05/18 15:38 GGD [email or web address]) Physical Therapy Treatment Exercises Exercises Ankle Pumps Straight Leg Raises Supine Hip Abduction Education Education Provided Safety M7 PT-IP Assessment and Plan Start: 05/04/18 13:02 Freq: NEEDED Status: Active Protocol: Document 05/07/18 14:40 GGD (Rec: 05/07/18 15:36 GGD [id number]) PT Summary Assessment and Plan Summary Assessment Summary Pt had mild backwards lean with standing. He needed time to gain balance, before ambulation. He had improved control with walker and needed CGA to min a for straight ambulation and min to mod A with turns. He is implusive and needs cues. He able to follow one step cues. Frequency of Treatment Frequency Of Treatment Twice a Day Treatment Plan Other Recommendations and Next Treatment Progress gait and balance. Focus Discharge Recommendations PT Discharge Recommendations Acute Rehab Other Discharge Recommendations [facility] vs Acute rehab needs further evaluation
--- NOTE | 2018-05-07 15:11 | CM.DPC ---
DCP: continued: case received again and EMR reviewed, 05/05 to present. PT and OT have been seeing pt. CAN TESTER Aide is seeing today for the first time for a cognitive eval. Therapy team recommends consideration of inpt rehab vs snf. No referrals have been started at this point. Met with pt and his earlier this afternoon at length after discussion to discuss d/c issues and options. Pt continues to express desire for home but does agree to defer to his for details of his d/c plan. He seems to have little understanding of his present situation and care needs. His Dolly does say that since his first stroke he has been able to get around at home with simple routines but I have had to do the thinking for the 2 of us. She says it is very clear that her needs rehab in a facility in order to give him a chance to have more quality of life. She has discussed same with her son and daughter and son in law (all of whom live in [place]). Went over specifics of INPT hospital based rehab vs snf rehab. INPT would provide more aggressive and intense therapy but of markedly shorter duration. (? 2-3 weeks). A d/c after that to a snf level would not be considered appropriate. If pt needed assist even after the rehab the family would need to provide a plan around that as part of the INPT assessment process. Options would be [facility] or [facility] .SNF level rehab would provide PT/OT/CAN TESTER therapy but at a less intense level. Duration would be up to 100 days of full coverage with the Medicare and [employer] as long as pt met the rehab criteria. SNF choice list: discussed. Decision: [facility] (5 minutes from the pt's home). Dolly does say that going to [facility] would be difficult for family and pt would get less frequent visits but she wants what is best for him and will discuss more with the family. Pt does not at this point voice an option but says something should be done, I am ready to get out of here. Dolly reassures pt that all is in process of being sorted out. P: continue the discussion with family and therapy team (conference held after this discussion with BEET TOPPER and OT and then later with Aide after she completed the cognitive eval. Hope to discuss with Dr. Baca tomorrow. Referrals are given now to [facility] and [facility] and both are reviewing. ([facility]y confirms that admissions are not accepted on Wednesday at but she will followup with the DCP team on Wednesday)
--- NOTE | 2018-05-07 15:16 | ST.OPIE ---
Provider Information Visit Care Team Role Provider Type Cheng Jimenez MD Emergency Provider Physician Specialty: Emergency Medicine Address: [address] [place] [address] Email: Aashish Baca MD Attending Provider Physician Family Provider Primary Care Provider Specialty: Internal Medicine Address: [address] [place] [address] Email: [email or web address] Pinky Herzog MD Admit Provider Physician Other Providers Specialty: Family Practice Address: [address] [place] [address] Email: [email or web address] Speech-Language Pathology Initial Evaluation 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 The pt has hx of stroke 21 yrs ago with residual left side weakness, cognitive impairment , and word finding difficulties, per pt/spouse report. 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 Evaluation Liquids Trialed Thin Solids Trialed Mechanical Soft Regular Administration Type Cup Single Sip Cup Consecutive Sips Straw Dependent Feeding Oral Impairment Moderately Impaired Oral Strategies Upright at 90 degrees Lingual Sweep Oral Phase Comments Pt has natural but sparse dentition with most molars and upper front teeth missing; however, mastication appeared to be WFL. Pt exhibited anterior spillage of solids at right side of mouth with inconsistent awareness. When prompted for lingual sweep to right side, the pt swept his tongue to left side 3x consecutively. Oral clearance was adequate with no observation of pocketing. Swallow appeared to be prompt. Pharyngeal Impairment Mildly Impaired Pharyngeal Phase Strategies Sitting Upright (90 deg) Small Bites and Sips Pharyngeal Phase Comments Pt exhibited immediate mild cough with room temperature thin liquids. The pt c/o temperature and requested ice water, which was administered with no overt s/sx of aspiration observed via single and consecutive straw sips with and without solids. The pt tolerated regular and mechanical soft textures with no overt s/sx of aspiration. Pt was dependent on feeding assistance, which was provided by his . The pt occasionally requested subsequent bites prior to swallow of current bolus. Education provided RE aspiration risks/precautions, including recommendation for slow rate of intake. The pt expressed great c/o that he eat the bread of the sandwich before it got dry. He and his did, however, comply with reduced rate of intake. Findings Dysphagia Type Moderate oral dysphagia; Mild pharyngeal dysphagia Rehabilitation Potential Good Impressions Lingual weakness resulting in reduced bolus preparation and control, limiting ability to clear left buccal cavity lingually. Labial weakness left side resulting in anterior spillage of solids; pt able to surround straw and prevent spillage of thin liquids. Pt able to masticate solids and produce timely swallow without significant oral residue. Mild pharyngeal evident likely d/t reduced sensation resulting in delayed swallow trigger and airway protection with room temperature liquids. Pt tolerates cold temperature liquids with no overt s/sx of aspiration. Temperature of liquids and bolus bulk of solids appear to impact the pt's swallow trigger. Diet Recommendations Liquids Order Thin Diet Order Regular Medication Recommendations As Tolerated Comments No room temperature liquids Additional Dietary Needs 1:1 Assistance Encourage to Self-Feed Aspiration Precautions Recommended Precautions Upright at 90 Degrees Small Bites/Sips Lingual Sweep Check for Pocketing Treatment Plan Placement Recommendations after Jail Facility Discharge Appropriate for Therapy Yes Therapy Recommendations Oral motor exercises to increase lingual and labial strength, coordination and ROM ; sensory stimulation; ongoing assessment of swallow safety and diet recommendations. Dysphagia Goals Pt will tolerate least restricted diet to meet his nutrition and hydration needs. Pt will follow safe swallow strategies to reduce risk of aspiration. Pt will perform oral motor exercises to increase lingual and labial strength, coordination and ROM.
--- NOTE | 2018-05-07 16:29 | ST.IPIE ---
Visit Care Team Role Provider Type Cheng Jimenez MD Emergency Provider Physician Specialty: Emergency Medicine Address: [address] [place] [address] Email: Aashish Baca MD Attending Provider Physician Family Provider Primary Care Provider Specialty: Internal Medicine Address: [address] [place] [address] Email: [email or web address] Pinky Herzog MD Admit Provider Physician Other Providers Specialty: Family Practice Address: [address] [place] [address] Email: [email or web address] Current Diagnoses Cerebral infarction, unspecified (05/04/18) Past Medical History (Last Reviewed 05/04/18 @ 11:30 by Javier Owens MD) History of stroke (Chronic Medical) Seizure disorder (Chronic Medical) Current use of [facility] anticoagulation (Chronic Medical) Essential hypertension (Chronic Medical) Generalized ischemic myocardial dysfunction (Chronic Medical) Chronic atrial fibrillation (Chronic Medical) 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 Medical) Elevated prostate specific antigen (PSA) (Chronic Medical 09/23/11) Chronic systolic congestive heart failure (Chronic Medical 09/23/11) halfway current use of anticoagulant therapy (Chronic Medical 03/28/13) Essential tremor (Chronic Medical 04/02/14) Mixed hyperlipidemia (Chronic Medical 09/03/15) Type 2 diabetes mellitus without complication (Chronic Medical 09/03/15) 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) Renal mass (Chronic Medical 06/21/17) ST IP Initial Evaulation Report 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 The pt has hx of stroke 21 yrs ago with residual left side weakness, cognitive impairment , and word finding difficulties, per pt/spouse report. 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 Evaluation Liquids Trialed Thin Solids Trialed Mechanical Soft Regular Administration Type Cup Single Sip Cup Consecutive Sips Straw Dependent Feeding Oral Impairment Moderately Impaired Oral Strategies Upright at 90 degrees Lingual Sweep Oral Phase Comments Pt has natural but sparse dentition with most molars and upper front teeth missing; however, mastication appeared to be WFL. Pt exhibited anterior spillage of solids at right side of mouth with inconsistent awareness. When prompted for lingual sweep to right side, the pt swept his tongue to left side 3x consecutively. Oral clearance was adequate with no observation of pocketing. Swallow appeared to be prompt. Pharyngeal Impairment Mildly Impaired Pharyngeal Phase Strategies Sitting Upright (90 deg) Small Bites and Sips Pharyngeal Phase Comments Pt exhibited immediate mild cough with room temperature thin liquids. The pt c/o temperature and requested ice water, which was administered with no overt s/sx of aspiration observed via single and consecutive straw sips with and without solids. The pt tolerated regular and mechanical soft textures with no overt s/sx of aspiration. Pt was dependent on feeding assistance, which was provided by his . The pt occasionally requested subsequent bites prior to swallow of current bolus. Education provided RE aspiration risks/precautions, including recommendation for slow rate of intake. The pt expressed great c/o that he eat the bread of the sandwich before it got dry. He and his did, however, comply with reduced rate of intake. Findings Dysphagia Type Moderate oral dysphagia; Mild pharyngeal dysphagia Rehabilitation Potential Good Impressions Lingual weakness resulting in reduced bolus preparation and control, limiting ability to clear left buccal cavity lingually. Labial weakness left side resulting in anterior spillage of solids; pt able to surround straw and prevent spillage of thin liquids. Pt able to masticate solids and produce timely swallow without significant oral residue. Mild pharyngeal evident likely d/t reduced sensation resulting in delayed swallow trigger and airway protection with room temperature liquids. Pt tolerates cold temperature liquids with no overt s/sx of aspiration. Temperature of liquids and bolus bulk of solids appear to impact the pt's swallow trigger. Diet Recommendations Liquids Order Thin Diet Order Regular Medication Recommendations As Tolerated Comments No room temperature liquids Additional Dietary Needs 1:1 Assistance Encourage to Self-Feed Aspiration Precautions Recommended Precautions Upright at 90 Degrees Small Bites/Sips Lingual Sweep Check for Pocketing Treatment Plan Placement Recommendations after [facility] Discharge Appropriate for Therapy Yes Therapy Recommendations Oral motor exercises to increase lingual and labial strength, coordination and ROM ; sensory stimulation; ongoing assessment of swallow safety and diet recommendations. Dysphagia Goals Pt will tolerate least restricted diet to meet his nutrition and hydration needs. Pt will follow safe swallow strategies to reduce risk of aspiration. Pt will perform oral motor exercises to increase lingual and labial strength, coordination and ROM. V[employer]REUX PRINTER Cognitive/Memory Evaluation Start: 05/07/18 14:36 Freq: Status: Active Protocol: Document 05/07/18 15:20 ERI (Rec: 05/07/18 16:28 ERI [email or web address]) Evaluation of Cognition Session Time Visit Start Time 13:20 Visit Stop Time 14:05 Total Visit Minutes 45 Evaluation Assessment Type Cognitive Communication Past Medical History Patient History 83-yr-old male presented to ER with acute onset right side weakness, appears to be small vessel disease vs large vessel occlusion, per MD report. The pt has hx of stroke 21 yrs ago with residual left side weakness, cognitive impairment , and word finding difficulties, per pt/spouse report. 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 Recent cateract surgery. R/L neglect. Educational Status Education Level College Oral Motor Examination Oral Motor Exam Completed Yes Results Informal observations: Natural , sparse dentition with missing molars and upper front teeth; left side lingual and labial weakness and reduced coordination. which occasionally impacts pt ability to produce bilabial and labiodental phonemes, resulting in mildly reduced speech intelligibility. Subjective Subjective Pt recognized VIGOUREUX PRINTER from swallow evaluation earlier in the day . He was sitting up in the chair with his present. He was agreeable to further evaluation. - Informal Assessment Cognition Normal No Formal Assessment Standardized Test SLUMS Administration Complete Raw Score 16/26 Results Pt was unable to hold a pen secondary to upper limb weakness; therefore, clock drawing (4 pts) was not tested . Pt was oriented to day of week, year and state. Able to recall 4/5 objects immediately and 2/5 after delay. Pt named 15 animals in 60 sec. Unable to complete math; pt stated he has no ability to do math in my head since the first stroke. Pt unable to repeat 2 -digit or 4-digit numbers in reverse order but did repeat 3 digits in reverse order. Pt identified triangle from Fo3 objects; indicated smallest object as largest. Given short story presented orally, the pt answered 3/4 questions accurately. Pt answered that story character returned to work after kids were raised vs when they were teenagers, indicating partial recall. Results indicate cognitive impairment consistent with symptoms of dementia. Pt demonstrated strengths in orientation and language skills and greatest impairments in memory and mental manipulation. - Cognition Orientation Skill Level WFL Attention Skill Level Mildly Impaired Comment Sustained att to testing for > 60 minutes. Occ off-topic in conversation. Category Naming/Identification Skill Level WFL Sequencing Skill Level Moderately Impaired Auditory Math Skill Level Severely Impaired - Memory Short Term Memory Skill Level Moderately Impaired Immediate Recall Skill Level Mildly Impaired Story Recall Skill Level Mildly Impaired Long-Term Memory Skill Level WFL - Findings Cognitive/Memory Impressions Pt presents with moderate cognitive deficits. Per pt/ spouse report, the pt's current cognitive status appears to be at or close to baseline. Greatest impairments are with short-term and working memory, mental manipulation, math skills, and processing speeds. The pt demonstrated awareness of deficits and was able to discuss them. He did exhibit lability intermittently throughout the evaluation when discussing challenges. VIGOUREUX PRINTER Language Evaluation Start: 05/07/18 14:36 Freq: Status: Active Protocol: Document 05/07/18 15:20 ERI (Rec: 05/07/18 16:28 ERI [email or web address]) Language Evaluation Session Time Visit Start Time 13:50 Visit Stop Time 15:20 Total Visit Minutes 90 Language Evaluation Assessment Type Criterion Referenced Hearing Hearing Level Normal Vision Vision Status Impaired Comments Reading glasses (did not have) ; Recent cataract surgery; L/R neglect [place] Language Language(s) Spoken in the Home Italian Educational Status Education Level College - Informal Assessment Receptive Language Normal No Expressive Language Normal No Articulation Normal Yes: Occasionally impaired d/t dentition Assessment Findings Comprehension: Simple & complex Yes/No: 10/10 with need for extended time with complex items; Right/Left Discrimination: 5/5; Body Part ID: 5/5; Picture ID: 5/5; 1- Step Commands: 5/5; 2-Step Commands: 4/5 with difficulty sequencing commands (e.g., do X BEFORE/AFTER doing Y); 3- Step Commands: 1/5. Reading Words: 5/5; Phrases: 5/5; Sentences: 0/5 with pt exhibiting both R & L side neglect; improved to 100% (3/3 ) with visual isolation of sentences and visual prompt to initiate at left side. Expression: Automatic Speech: Counting 1-20 and Days of Week , 100%; ABCs correct from A-T. Pt stated, I think that's all of them, then completed T -Z when prompted with carrier phrase. Months of year correct from Nov-Aug, then requiring 2 prompts for Nov and Dec. Immitation of words and simple sentences: 5/5. Phrase/ sentence completion: /5; Confrontation namin/12; Responsive namin/. Written Expression not tested as pt was unable to hold pen in hand secondary to weakness. Oral Picture Description ( Navya Bryant): Pt exhibited appropriate word usage and syntax, identified boy falling off stool, cookies in the jar , mother allowing water to spill, and 3 people present in the picture. Identified window and interpretted the li to be meat burning on the BBQ grill: from my perspective that's what it looks like, indicating some doubt in the accuracy. Conversational Speech: Largely appropriate and on topic in simple conversation. With both expressive and receptive language of greater length and complexity, the pt exhibited difficulty staying on topic; hard to determine if this was from word-finding difficulties , aphasia symptoms, or processing difficulties. For example, when asked if he experienced difficulty finding words that he wanted to say, the pt responded, Yes, because of lack of reading. Upon further probing and with spouse input, the pt appeared to be indicating a sadness over his loss of reading ability and acknowledging that reading often improves word recall in speech. Recommendations SNF rehabilitation. The pt demonstrated ability and motivation to endure >60 minutes of testing. Impairments with expressive, receptive, and cognitive communication impact his ability to follow and recall instructions and new information, to respond quickly and to reason/mentally manipulate information in order to problem-solve. The pt exhibits both right and left side neglect but is highly responsive to visual cues to isolate targets and establish visual boundaries. He does demonstrate awareness of deficits and ability to discuss them, although this frequently led to emotional responses during this evaluation (i.e., tearfulness and crying). He redirected himself in 3/4 emotional occurrences and was able to continue with tasks. - Receptive Language - Expressive Language - Treatment Goals Short Term Goals The pt will follow complex 2- step commands with 80% accuracy to increase his ability to participate in therapeutic tasks. The pt will recall functional safety awareness information with 80% accuracy to increase safety in his functional environment. The pt will discuss functional picture scenes/situational descriptions with 80% comprehensibility to increase expressive and receptive language skills. Pharmacy Billing Adjudicator Goals The pt will demonstrate expressive, receptive, and cognitive communication skills WFL to participate in rehabilitative tasks, express his wants and needs, and participate in decision making .
[2018-05-07] MEDS: DIGOXIN 0.125 MG TABLET PO (16:38)
[2018-05-08] VITALS (11 sets, daily range): BP systolic 119–149; BP diastolic 65–99; PULSE 77–97; RESP 18; TEMP 36.4–36.8; O2SAT 95–99
[2018-05-08 05:32] LABS: INR 3.3 (0.9-1.3); Prothrombin Time 35.4 SECONDS (10.1-12.7)
[2018-05-08 05:37] LABS: BUN Creatinine Ratio 32.1 (6-22); Blood Urea Nitrogen 45 mg/dL (9-20); Calcium 9.7 mg/dL (8.4-10.2); Carbon Dioxide 25 mmol/L (22-32); Chloride 106 mmol/L (98-107); Estimated Glomerular Filt Rate 48.6 mL/min (>60); Glucose 112 mg/dL (80-110); HEMOLYSIS 23 (0-50); Potassium 4.6 mmol/L (3.4-5.1); Sodium 146 mmol/L (137-145)
[2018-05-08] MEDS: GEMFIBROZIL 600 MG TABLET PO ×2 (06:38→16:12)
[2018-05-08] MEDS: levoFLOXacin 250 MG TABLET PO (09:05)
[2018-05-08] MEDS: POTASSIUM CHLORIDE 20 MEQ TAB PO ×2 (09:05→16:12)
[2018-05-08] MEDS: SODIUM CHLORIDE 0.9% FLUSH 10 ML IV ×2 (09:06→21:06)
[2018-05-08] MEDS: METOPROLOL ER 50 MG TABLET 100 MG PO (09:06)
[2018-05-08] MEDS: FUROSEMIDE 20 MG TABLET PO (09:06)
--- NOTE | 2018-05-08 10:18 | CM.DPC ---
DCP: continued: Met with pt and his son Milind ([phone]) this morning and went over the d/c dispo options as planned. Pt participated in the discussion. Discussed also with PT Jonas. Decision now for [facility] with d/c planned for tomorrow. Dr. Baca confirms he will be rounding again tomorrow. A vm is left now for [facility] admissions (who indicated yesterday that she would be in about 0930) and [facility] plus Dr. Baca' progress note of today is faxed. Vm left with update on d/c dispo decision for admissions/[facility] in rehab: [phone]. P: [facility] tomorrow. w/c Van transport is needed/snf aware and will set this up. CM/DCP team on tomorrow will follow for the details.
--- NOTE | 2018-05-08 10:44 | PT.IPTN ---
Current Diagnoses Cerebral infarction, unspecified (05/04/18) Physical Therapy Treatment Note M2 PT-IP Current Condition Start: 05/04/18 13:02 Freq: NEEDED Status: Active Protocol: Document 05/08/18 10:44 RCC (Rec: 05/08/18 11:24 RCC [id number]) Physical Therapy Current Condition Current Condition Evaluation Date 05/04/18 Treatment Diagnosis right sided weakness Onset Date 05/03/18 Weight Bearing Status Weight Bearing Status Weight Bear as Tolerated M3 PT-IP Subjective Start: 05/04/18 13:02 Freq: NEEDED Status: Active Protocol: Document 05/08/18 10:44 RCC (Rec: 05/08/18 11:24 RCC [id number]) Subjective Physical Therapy Visit Type Type Treatment Note Visit Start Time 10:20 Visit Stop Time 10:44 Total Visit Minutes 24 Notes Milind gaspar, in room during session Number of OUT OF TOWN COLLECTION CLERK Visits 0 Physical Therapy Visit Comments Patient Comments Pt denies SOB, dizziness, numbness/tingling. Therapy Pain Assessment Pain Present Pain Present Denied Pain M4 PT-IP Mobility and Gait Start: 05/04/18 13:02 Freq: NEEDED Status: Active Protocol: Document 05/08/18 10:44 RCC (Rec: 05/08/18 11:24 RCC [id number]) PT-Bed Mobility Assessment Supine to Sit Supine to Sit Contact Guard Assistance PT-Transfer Assessment Sit to and From Stand Sit to and from Stand Minimal Assistance 1 Person Assistance Equipment Transfer Assistive Device Platform Walker Transfers Transfer Destination Chair Transfer Technique Stand Step Pivot Transfer Ability Level of Assist Moderate Assistance Comments Mobility Comments Assist with RUE placement on platform walker, assist with FWW management Gait Assessment Gait Gait Assistance Required: Moderate Assistance Distance (Feet) (feet) 100 Assistive Devices Assistive Device Gait Belt Platform Walker Gait Deviations General Gait Pattern Ataxic Decreased Stride Length Decreased Feet Clearance Narrow Based Gait Factors Limiting Gait Function Factors Limiting Gait Function Decreased Activity Tolerance Decreased Strength Difficulty Following Directions Incoordination Poor Balance Poor Safety Awareness Comments Gait Comments Occasional cross of midline of the feet bilaterally. Moderate assistance with FWW management, and Mod assist to prevent a fall to the L x1 during gait. PT-Balance Assessment Sitting Balance and Reactions Static Sitting Balance Ability Good Dynamic Sitting Balance Ability Fair Standing Balance and Reactions Static Standing Balance Ability Fair Dynamic Standing Balance Ability Poor Device Used Platform FWW (RUE) M5 PT-IP Objective Assessments Start: 05/04/18 13:02 Freq: NEEDED Status: Active Protocol: Document 05/08/18 10:44 RCC (Rec: 05/08/18 11:24 [facility] [id number]) Coordination Assessment Gross Coordination Gross Coordination Impaired M6 PT-IP Treatment Start: 05/04/18 13:02 Freq: NEEDED Status: Active Protocol: Document 05/08/18 10:44 RCC (Rec: 05/08/18 11:24 [facility] [id number]) Physical Therapy Treatment Exercises Exercises Ankle Pumps Shoulder Flexion Elbow Flexion/Extension Wrist ROM Hand ROM Education Education Provided Safety Other Treatments Other Treatment Performed opening/closing R hand with assistance, family education. M7 PT-IP Assessment and Plan Start: 05/04/18 13:02 Freq: NEEDED Status: Active Protocol: Document 05/08/18 10:44 RCC (Rec: 05/08/18 11:24 [facility] [id number]) PT Summary Assessment and Plan Summary Assessment Summary Pt able to ambulate 100 ft, but requires manual assistance for FWW management and to steady in standing. Pt had a loss of balance x1 requiring Mod A x1 to prevent a fall to the L. Pt requires assitance with RUE placement and safety. He is able to read room numbers and identify pictures on the wall on both the R and L side with significant head turning and is unable to ambulate when asked a complex question. Pt is at high risk for falls and is not safe to return home. Family would prefer pt to attend SNF rehab due to proximity to their home so that family can visit often, including the pt's to assist with the psychosocial aspects of the pt 's recovery. Goals Bed Mobility Goal Independent Transfer Goal Independent Gait Goal Standby Assistance Gait Distance 150 feet Days to Meet Goals 3 Treatment Plan Other Recommendations and Next Treatment standing balance, gait. Focus Recommendations To Nursing Amount of Assist Needed 1 Person Assist Discharge Recommendations PT Discharge Recommendations SNF Rehab
--- NOTE | 2018-05-08 10:52 | PM.PN.1 ---
Subjective Date Patient Seen: 05/08/18 Time Patient Seen: 10:52 Interval history: Patient really has no new complaints. Cognitively seems to be a bit improved. Was seen by speech therapy who thought there were some minor issues with swallow but more significant issues with speech and cognition. Patient and family have been in discussion with care management as well. While in-patient rehab certainly seems like a good idea and patient certainly has the motivation to work there, his rehab potential is really fairly quite limited given lack of progression here. Therefore the decision seems to have been made that [place] allow for a longer period of time of rehabilitation. That seems entirely appropriate to me and I agree fully. Exam Vital Signs (past 8 hours): - 05/08/18 04:33 05/08/18 07:00 05/08/18 08:00 Temperature 98.0 F 97.9 F Pulse Rate 77 88 Respiratory Rate 18 18 Blood Pressure 149/88 H 134/99 H Pulse Oximetry 95 96 99 Oxygen Delivery Method Room Air Oxygen Flow Rate 0 Narrative Exam Narrative: Alert and oriented times 2-1/2, (not exactly sure about day) Right hand and wrist weakness unchanged from previous, remainder for right upper extremity unchanged from previous, gait a bit more stable with standby assistance and a walker Objective Labs Result Diagrams: 05/04/18 00:30 05/08/18 05:10 Labs: Laboratory Results - last 24 hr 05/08/18 05/08/18 05:10 05:10 PT 35.4 H INR 3.3 H Sodium 146 H Potassium 4.6 Chloride 106 Carbon Dioxide 25 BUN 45 H Creatinine 1.40 H Estimated GFR 48.6 L BUN/Creatinine Ratio 32.1 H Glucose 112 H Calcium 9.7 Assessment & Plan Plan: Assessment/Plan Narrative: 1. CVA-patient really has had very little if any improvement during this hospitalization. Plans for discharge to assisted for continued rehab are entirely appropriate. I am concerned the patient may not be able to return home although that certainly is his goal. I think family member certainly have a realistic expectation even if patient may not be fully cognizant. 2. UTI-continue with oral levofloxacin. 3. Atrial fibrillation-continues with controlled rate. INR has crept up a little bit further. Will hold warfarin today and recheck tomorrow before deciding on whether to alter dose or continue to hold etc 4. Chronic renal failure-numbers are stable on blood work this morning. No change in therapy 5. Diabetes-adequate control for now 6. Disposition-plan for patient to go to assisted facility when they can accept, presumably tomorrow. Note: Greater than 30 minutes was spent evaluating the patient on the floor, including examining the patient, discussing clinical course with clinical and nursing staff, reviewing clinical course in the computer, preparing documentation and writing orders for continued management of care, discussing status with family as appropriate, reviewing plans for the next 24 hours with both patient/family and nursing staff as appropriate. Quality VTE Deep Vein Thrombosis/Pulmonary Embolism Present on Admission: No
--- NOTE | 2018-05-08 10:55 | P.PN_ITS ---
Subjective Date Patient Seen: 05/08/18 Time Patient Seen: 10:52 Interval history: Patient really has no new complaints. Cognitively seems to be a bit improved. Was seen by speech therapy who thought there were some minor issues with swallow but more significant issues with speech and cognition. Patient and family have been in discussion with care management as well. While in-patient rehab certainly seems like a good idea and patient certainly has the motivation to work there, his rehab potential is really fairly quite limited given lack of progression here. Therefore the decision seems to have been made that [place] allow for a longer period of time of rehabilitation. That seems entirely appropriate to me and I agree fully. Exam Vital Signs (past 8 hours): - 05/08/18 04:33 05/08/18 07:00 05/08/18 08:00 Temperature 98.0 F 97.9 F Pulse Rate 77 88 Respiratory Rate 18 18 Blood Pressure 149/88 H 134/99 H Pulse Oximetry 95 96 99 Oxygen Delivery Method Room Air Oxygen Flow Rate 0 Narrative Exam Narrative: Alert and oriented times 2-1/2, (not exactly sure about day) Right hand and wrist weakness unchanged from previous, remainder for right upper extremity unchanged from previous, gait a bit more stable with standby assistance and a walker Objective Labs Result Diagrams: 05/04/18 00:30 05/08/18 05:10 Labs: Laboratory Results - last 24 hr 05/08/18 05/08/18 05:10 05:10 PT 35.4 H INR 3.3 H Sodium 146 H Potassium 4.6 Chloride 106 Carbon Dioxide 25 BUN 45 H Creatinine 1.40 H Estimated GFR 48.6 L BUN/Creatinine Ratio 32.1 H Glucose 112 H Calcium 9.7 Assessment & Plan Plan: Assessment/Plan Narrative: 1. CVA-patient really has had very little if any improvement during this hospitalization. Plans for discharge to residential for continued rehab are entirely appropriate. I am concerned the patient may not be able to return home although that certainly is his goal. I think family member certainly have a realistic expectation even if patient may not be fully cognizant. 2. UTI-continue with oral levofloxacin. 3. Atrial fibrillation-continues with controlled rate. INR has crept up a little bit further. Will hold warfarin today and recheck tomorrow before deciding on whether to alter dose or continue to hold etc 4. Chronic renal failure-numbers are stable on blood work this morning. No change in therapy 5. Diabetes-adequate control for now 6. Disposition-plan for patient to go to residential facility when they can accept, presumably tomorrow. Note: Greater than 30 minutes was spent evaluating the patient on the floor, including examining the patient, discussing clinical course with clinical and nursing staff, reviewing clinical course in the computer, preparing documentation and writing orders for continued management of care, discussing status with family as appropriate, reviewing plans for the next 24 hours with both patient/family and nursing staff as appropriate. Quality VTE Deep Vein Thrombosis/Pulmonary Embolism Present on Admission: No
--- NOTE | 2018-05-08 14:35 | PT.IPTN ---
Current Diagnoses Cerebral infarction, unspecified (05/04/18) Physical Therapy Treatment Note M2 PT-IP Current Condition Start: 05/04/18 13:02 Freq: NEEDED Status: Active Protocol: Document 05/08/18 14:35 [facility] (Rec: 05/08/18 14:47 [facility] [id number]) Physical Therapy Current Condition Current Condition Evaluation Date 05/04/18 Treatment Diagnosis right sided weakness Onset Date 05/03/18 Weight Bearing Status Weight Bearing Status Weight Bear as Tolerated M3 PT-IP Subjective Start: 05/04/18 13:02 Freq: NEEDED Status: Active Protocol: Document 05/08/18 14:35 [facility] (Rec: 05/08/18 14:47 [facility] [id number]) Subjective Physical Therapy Visit Type Type Treatment Note Visit Start Time 14:10 Visit Stop Time 14:35 Total Visit Minutes 25 Number of INSOLVENCY PRACTITIONER Visits 0 Physical Therapy Visit Comments Patient Comments Pt willing to ambulate. Therapy Pain Assessment Pain Present Pain Present Denied Pain M4 PT-IP Mobility and Gait Start: 05/04/18 13:02 Freq: NEEDED Status: Active Protocol: Document 05/08/18 14:35 [facility] (Rec: 05/08/18 14:47 [facility] [id number]) PT-Bed Mobility Assessment Supine to Sit Supine to Sit Contact Guard Assistance Sit to Supine Sit to Supine Standby Assistance Scooting Scooting to Edge of Bed Standby Assistance PT-Transfer Assessment Sit to and From Stand Sit to and from Stand Contact Guard Assistance 1 Person Assistance Use of Upper Extremities Equipment Transfer Assistive Device Gait Belt Platform Walker Transfers Transfer Destination Bed Transfer Technique Stand Step Pivot Transfer Ability Level of Assist Moderate Assistance Comments Mobility Comments VC for sequencing, manual assist on FWW. Gait Assessment Gait Gait Assistance Required: Moderate Assistance Distance (Feet) (feet) 150 Assistive Devices Assistive Device Gait Belt Platform Walker Gait Deviations General Gait Pattern Ataxic Decreased Stride Length Decreased Feet Clearance Narrow Based Gait Factors Limiting Gait Function Factors Limiting Gait Function Decreased Activity Tolerance Decreased Strength Difficulty Following Directions Incoordination Poor Balance Poor Safety Awareness Comments Gait Comments Pt with excessive LLE ER during standing and gait. Less tactile cuing of the R hand to manage FWW, but still Mod Assist. M5 PT-IP Objective Assessments Start: 05/04/18 13:02 Freq: NEEDED Status: Active Protocol: Document 05/08/18 14:35 [facility] (Rec: 05/08/18 14:47 [facility] [id number]) Coordination Assessment Gross Coordination Gross Coordination Impaired M6 PT-IP Treatment Start: 05/04/18 13:02 Freq: NEEDED Status: Active Protocol: Document 05/08/18 14:35 [facility] (Rec: 05/08/18 14:47 [facility] [id number]) Physical Therapy Treatment Education Education Provided Safety M7 PT-IP Assessment and Plan Start: 05/04/18 13:02 Freq: NEEDED Status: Active Protocol: Document 05/08/18 14:35 [facility] (Rec: 05/08/18 14:47 [facility] [id number]) PT Summary Assessment and Plan Summary Assessment Summary Pt required less tactile cuing to keep R hand on handle of R sided platform walker, but continues to require manual assistance with all standing activities. Goals Bed Mobility Goal Independent Transfer Goal Independent Gait Goal Standby Assistance Gait Distance 150 feet Days to Meet Goals 3 Frequency of Treatment Frequency Of Treatment Twice a Day Treatment Plan Other Recommendations and Next Treatment prog. gait, functional Focus mobility. Recommendations To Nursing Amount of Assist Needed 1 Person Assist Discharge Recommendations PT Discharge Recommendations SNF Rehab
[2018-05-08] MEDS: DIGOXIN 0.125 MG TABLET PO (16:12)
[2018-05-09 04:30] VITALS: BP 138/92; PULSE 83; RESP 16; TEMP 36.4; O2SAT 96
[2018-05-09 05:44] LABS: INR 2.8 (0.9-1.3); Prothrombin Time 30.3 SECONDS (10.1-12.7)
[2018-05-09] MEDS: GEMFIBROZIL 600 MG TABLET PO (06:38)
[2018-05-09 07:00] VITALS: O2SAT 96
[2018-05-09 08:00] VITALS: BP 112/72; PULSE 84; RESP 16; TEMP 36.5; O2SAT 99
--- NOTE | 2018-05-09 08:17 | PM.DS.1 ---
History of Present Illness Date Patient Seen: 05/09/18 Time Patient Seen: 08:17 Chief complaint: Rt Side Weakness Narrative: The patient was admitted for early this morning through the emergency room. He had acute onset of right arm weakness sometime earlier this morning. He also felt that his right leg seemed weak. The weakness of his right arm persisted and came to the emergency room He relates that by the time he made it to the emergency room with right leg weakness had resolved As stated he had acute onset of right arm weakness unable to move at all altogether. He had no other associated symptoms. Denies headache any visual or speech changes and as stated of the right leg that defect has resolved He is status post having had a stroke involving the left side and has improved significantly. He says some weakness of the left hand but able to manage without difficulty The patient has multiple comorbidities related to this including atrial fibrillation, history of a CVA, diabetes, hypertension, hyperlipidemia, he has a defibrillator for V-tach. Patient sees Dr. Wong for his cardiac status last seen in January. Sees Dr. Baca for his ongoing healthcare seen in January. 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 {from Dr. Owens's history and physical May 04, 2018} Discharge Providers Date of admission: 05/04/18 03:50 Primary care physician: Aashish Baca MD Consults: Discharge provider: Aashish Baca MD Discharge Date: 05/09/18 Summary Discharge Diagnosis: 1. 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 Cognitive dysfunction, multifactorial including current CVA as well as prior CVA 3. Chronic atrial fibrillation on chronic anticoagulation 4. UTI with E coli 5. 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 Squamous cell carcinoma the lower neck is 7. Type 2 diabetes 8. Chronic systolic congestive heart failure without evidence of acute exacerbation 9. Essential hypertension Hospital Course: Patient was admitted to the hospital floor. He he was left with right hand fingers and wrist weakness. He really had no motion or activity in this area at all. He had nearly normal but some minor weakness at the right elbow and right shoulder. There is also some evidence of new cognitive dysfunction and maybe some slurred speech as well. Patient participated appropriately with physical therapy occupational therapy and speech therapy. He was felt to benefit from additional therapies in a ch[facility] environment. He could not be managed in the home environment in his current state because of his issues of weakness is inability to transfer difficulties with gait etc Patient was also found to have a UTI with E coli and was started on appropriate antibiotic therapy. His protime was monitored and joan slowly and will continue to be followed carefully His other medical problems including his diabetes his vascular disease his seizure disorder etc were not active during this hospitalization Status at Discharge Functional status at discharge: uses cane/walker (With great difficulty and standby assist) Overall status at discharge: patient is not back to baseline Time Spent with Patient Greater than 30 minutes Exam Vital Signs (past 8 hours): - 05/09/18 04:30 05/09/18 07:00 Temperature 97.6 F Pulse Rate 83 Respiratory Rate 16 Blood Pressure 138/92 H Pulse Oximetry 96 96 Oxygen Delivery Method Room Air Oxygen Flow Rate 0 Objective Labs Result Diagrams: 05/04/18 00:30 05/08/18 05:10 Labs: Laboratory Results - last 24 hr 05/09/18 05:26 PT 30.3 H D INR 2.8 H Discharge Plan Discharge Plan Patient Disposition: SNF Transfer to: [facility] Under care of provider: [facility] Physician Transportation: Facility vehicle Labs: protime/INR on 05/11/18 Consult as needed: Dental, Hearing, Mental health, Podiatry and Vision I certify the postop hospital [facility] care is medically necessary on a continuing basis for any conditions for which he/ she received care during this hospitalization.: Yes The receiving facility has agreed to accept transfer and provide medical treatment.: Yes Discharge Health Status Multidrug resistant organism: No MDRO Precautions: [place] Provider Discharge Instructions Diet: Diet as Tolerated Liquid consistency: Normal/Thin Food texture: Regular Diet comment: also per Speech Therapy Activity: per Physical Therapy and Occupational Therapy [facility] Reason for rehabilitation: Therapy following stroke Rehab type: Physical therapy, Occupational therapy and Speech therapy Discharge Data Primary Care Provider: Aashish Baca Attending Provider: Aashish Baca Admit Date/Time: 05/04/18 03:50 Quality VTE Deep Vein Thrombosis/Pulmonary Embolism Present on Admission: No
[2018-05-09] MEDS: levoFLOXacin 250 MG TABLET PO (09:02)
[2018-05-09] MEDS: POTASSIUM CHLORIDE 20 MEQ TAB PO (09:02)
[2018-05-09] MEDS: FUROSEMIDE 20 MG TABLET PO (09:02)
[2018-05-09] MEDS: METOPROLOL ER 50 MG TABLET 100 MG PO (09:02)
[2018-05-09] MEDS: SODIUM CHLORIDE 0.9% FLUSH 10 ML IV (09:03)
--- NOTE | 2018-05-09 10:02 | PT.IPTN ---
Current Diagnoses Cerebral infarction, unspecified (05/04/18) Physical Therapy Treatment Note M2 PT-IP Current Condition Start: 05/04/18 13:02 Freq: NEEDED Status: Active Protocol: Document 05/08/18 14:35 [facility] (Rec: 05/08/18 14:47 [facility] [id number]) Physical Therapy Current Condition Current Condition Evaluation Date 05/04/18 Treatment Diagnosis right sided weakness Onset Date 05/03/18 Weight Bearing Status Weight Bearing Status Weight Bear as Tolerated M3 PT-IP Subjective Start: 05/04/18 13:02 Freq: NEEDED Status: Active Protocol: Document 05/09/18 10:00 TMS (Rec: 05/09/18 10:01 TMS [id number]) Subjective Physical Therapy Visit Type Type Patient Refusal Notes Attempted to see pt. but pt. refused, didn't sleep well last night and feels like everything is happening at once. Pt. scheduled to be transferred to [facility] today. M4 PT-IP Mobility and Gait Start: 05/04/18 13:02 Freq: NEEDED Status: Active Protocol: Document 05/08/18 14:35 [facility] (Rec: 05/08/18 14:47 [facility] [id number]) PT-Bed Mobility Assessment Supine to Sit Supine to Sit Contact Guard Assistance Sit to Supine Sit to Supine Standby Assistance Scooting Scooting to Edge of Bed Standby Assistance PT-Transfer Assessment Sit to and From Stand Sit to and from Stand Contact Guard Assistance 1 Person Assistance Use of Upper Extremities Equipment Transfer Assistive Device Gait Belt Platform Walker Transfers Transfer Destination Bed Transfer Technique Stand Step Pivot Transfer Ability Level of Assist Moderate Assistance Comments Mobility Comments VC for sequencing, manual assist on FWW. Gait Assessment Gait Gait Assistance Required: Moderate Assistance Distance (Feet) (feet) 150 Assistive Devices Assistive Device Gait Belt Platform Walker Gait Deviations General Gait Pattern Ataxic Decreased Stride Length Decreased Feet Clearance Narrow Based Gait Factors Limiting Gait Function Factors Limiting Gait Function Decreased Activity Tolerance Decreased Strength Difficulty Following Directions Incoordination Poor Balance Poor Safety Awareness Comments Gait Comments Pt with excessive LLE ER during standing and gait. Less tactile cuing of the R hand to manage FWW, but still Mod Assist. M5 PT-IP Objective Assessments Start: 05/04/18 13:02 Freq: NEEDED Status: Active Protocol: Document 05/08/18 14:35 [facility] (Rec: 05/08/18 14:47 [facility] [id number]) Coordination Assessment Gross Coordination Gross Coordination Impaired M6 PT-IP Treatment Start: 05/04/18 13:02 Freq: NEEDED Status: Active Protocol: Document 05/08/18 14:35 [facility] (Rec: 05/08/18 14:47 [facility] [id number]) Physical Therapy Treatment Education Education Provided Safety M7 PT-IP Assessment and Plan Start: 05/04/18 13:02 Freq: NEEDED Status: Active Protocol: Document 05/08/18 14:35 [facility] (Rec: 05/08/18 14:47 [facility] [id number]) PT Summary Assessment and Plan Summary Assessment Summary Pt required less tactile cuing to keep R hand on handle of R sided platform walker, but continues to require manual assistance with all standing activities. Goals Bed Mobility Goal Independent Transfer Goal Independent Gait Goal Standby Assistance Gait Distance 150 feet Days to Meet Goals 3 Frequency of Treatment Frequency Of Treatment Twice a Day Treatment Plan Other Recommendations and Next Treatment prog. gait, functional Focus mobility. Recommendations To Nursing Amount of Assist Needed 1 Person Assist Discharge Recommendations PT Discharge Recommendations SNF Rehab
--- NOTE | 2018-05-09 10:13 | OT.IP.TRT ---
Current Diagnoses Cerebral infarction, unspecified (05/04/18) Occupational Therapy Treatment Note M2 OT-IP Current Condition Start: 05/05/18 14:33 Freq: Status: Active Protocol: Document 05/07/18 09:04 [facility] (Rec: 05/07/18 11:21 [facility] [id number]) Occupational Therapy Current Condition Current Condition Evaluation Date 05/05/18 Treatment Diagnosis 05/03/18 Weight Bearing Status Weight Bearing Status Weight Bear as Tolerated M3 OT- IP Subjective and Pain Start: 05/05/18 14:33 Freq: Status: Active Protocol: Document 05/07/18 09:04 [facility] (Rec: 05/07/18 11:21 [facility] [id number]) OT- Subjective Occupational Therapy Visit Type Type Treatment Note Visit Start Time 09:04 Visit Stop Time 09:40 Total Visit Minutes 36 Occupational Therapy Visit Comments Patient Comments Pt agreeable to am session focusing on bADLs OT Pain Assessment Pain When Pain Assessed After Treatment Pain Present Pain Present Denied Pain M4 OT- IP ADL's Start: 05/05/18 14:33 Freq: Status: Active Protocol: Document 05/07/18 09:04 [facility] (Rec: 05/07/18 11:21 [facility] [id number]) OT UQK-Xnnm-[place] General Evaluation Self-Feeding Ability Total Assistance Areas Needing Assistance Bringing Utensil to Mouth Cutting Food Drinking From Cup/Glass Loading Utensil Opening Containers Comments OT Self-Feeding Comments Pt's R dominant hand affected by acute CVA, L hand affected by previous CVA. Pt requiring [id number] or total A to eat d/t poor coordination of limbs, R side neglect, impaired fine motor coordination, impaired bUE sensation. OT ADL-Grooming General Evaluation Grooming Ability Moderate Assistance Areas Needing Assistance Retrieving/Set-up of Grooming Items Face Washing Comments OT Grooming Comments Pt needing max A to grasp washcloth with R vs L hand, hand over hand assistance for thoroughness and coordination. OT ADL-Oral Care General Eval Oral Care Ability Maximum Assistance Areas of Assistance Brushing Teeth Retrieving/Set-Up of Items Comments Oral Care Comments Pt needing A for oral care d/t decreased ability to manipulate toothbrush in hand, decreased ability to coordinate, and decreased attention to R vs L sides. OT ADL-Dressing General Eval Upper Body Dressing Ability Moderate Assistance Areas Needing Assistance Pull-Over Shirt Comments OT Dressing Comments Improved use of RUE during gown doffing/donning; needing max verbal and tactile cues to attend to R UE and grasp hand effectively d/t weak L hand grasp. M6 OT- IP Functional Cognition Start: 05/05/18 14:33 Freq: Status: Active Protocol: Document 05/05/18 08:30 [facility] (Rec: 05/05/18 18:05 [facility] [id number]) Cognitive Factors Limiting Selfcare Function Cognitive Ability Level of Alertness Alert Patient Orientation Name Place Situation Attention Span Ability Capable of Focused Attention Capable of Sustained Attention Ability to Follow Commands Able to Follow One Step Commands Able to Follow One Step Commands with Repetition Memory Description Short Term Impaired Safety Awareness Underestimates Need for Assistance Problem Solving Ability Unable to Identify Errors Needs Assist to Identify Solutions Cognitive Comments Cognitive Assessment Comments Pt needing simple concrete commands. Pt a bit impulsive at well. Decreased safety awareness to his deficits. OT- Vision and Hearing OT- Hearing Assessment OT- Hearing Assessment WFL M7 OT- IP Mobility and Balance Start: 05/05/18 14:33 Freq: Status: Active Protocol: Document 05/06/18 10:38 [facility] (Rec: 05/06/18 13:45 [facility] [id number]) OT-Transfer Assessment Sit to and From Stand Sit to and from Stand Moderate Assistance 1 Person Assistance Transfers Transfer Ability Moderate Assistance 2 Person Assistance Technique Transfer Destination Bed Shower Stall Transfer Technique Stand Step Pivot Devices Transfer Assistive Devices Gait Belt Front Wheeled Walker OT- Gait Assessment Gait Gait Assistance Required: Moderate Assistance Distance (Feet) (feet) 15 Assistive Devices Assistive Device Gait Belt Front Wheeled Walker Comments Gait Ability Comments Pt needing cues and assistance to turn platform walker appropriately and safely, otherwise fair path finding and min A for balance during mobility. OT- Balance Assessment Sitting Balance and Reactions Static Sitting Balance Ability Good Dynamic Sitting Balance Ability Fair Standing Balance and Reactions Static Standing Balance Ability Good M8 OT- IP Objective Assessments Start: 05/05/18 14:33 Freq: Status: Active Protocol: Document 05/05/18 08:30 [facility] (Rec: 05/05/18 18:05 [facility] [id number]) OT Strength Comments Strength Comments LUE 4/5 , RUE 3-/5 to trace from shoulder to fingers. OT- Coordination Assessment Comments Coordination Comments Pt unable to hold cup and regular utensil with left hand and right hand flaccid at this time. OT-Muscle Tone Assessment Muscle Tone WNL No Comments Muscle Tone Comments Mild increased tone in LUE , and flaccid for RUE. OT Sensation Assessment Location Right Arm Proprioception (Position) Impaired Comments Summary Comments Light touch only able to tell locally for LUE and impaired for all right UE except for rigth elbow. Edema Edema Comments Mild swelling for RUE. M9 OT- IP Assessment and Plan Start: 05/05/18 14:33 Freq: Status: Active Protocol: Document 05/09/18 10:12 [facility] (Rec: 05/09/18 10:13 [facility] [id number]) OT Summary Assessment and Plan Discharge Recommendations OT Discharge Recommendations SNF Rehab Other Discharge Recommendations Pt not seen d/t confusion/ agitation r/t impending discharge to SNF. No further needs noted at this time.
--- NOTE | 2018-05-09 11:29 | CM.DPC ---
DCP/continued: Reviewed chart. Received notification from MD that patient medically stable to transfer to SNF today. ACID TANK LINER placed call to [facility] which is documented as first SNF choice. Left requesting return phone re: acceptance. In meantime, asked MICHEL/Tanika to fax clinical and d/c packet to [facility]. ACID TANK LINER met with patient and spouse. Patient asleep at time of visit but spouse confirms d/c plan. Received message from admit at [facility] and patient scheduled to be picked up at approximately 2:30pm. RN and family updated. P: [facility] today. VERNELL Mar
[2018-05-09 12:00] VITALS: BP 119/76; PULSE 75; RESP 14; TEMP 36.6; O2SAT 97
--- NOTE | 2018-05-09 12:33 | ST.IPTN ---
[employer]CH[employer] Treatment Note [employer]CH[employer] Treatment Note Start: 05/07/18 14:36 Freq: Status: Active Protocol: Document 05/09/18 11:02 ERI (Rec: 05/09/18 11:22 ERI [id number]) Speech Pathology Treatment Note Session Time Visit Start Time 09:00 Visit Stop Time 09:25 Total Visit Minutes 25 Setting Treatment Setting Acute Care Visit Type Note Type Treatment Note Subjective Observations/Patient Presentation Pt was reclined and resting in bed. He stated he was very tired and did frequently close his eyes during the session. He easily aroused and was agreeable to continuing tx. When he had difficulty answering questions, he stated , Because I'm so tired. Chief Complaint(s) Language Cognitive Additional Areas of Concern Dysphagia symptoms appear much improved. Objective Short Term Goals Pt will follow 2-step directions of moderate complexity to enhance ability to participate in therapeutic tasks. Pt will use compensatory strategies in presence of WFD to improve his ability to express his wants and needs. Residential Goals Pt will demonstrate expressive , receptive and cognitive communication skills adequate to express his wants/needs and participate in decision making related to his medical care. Pt will tolerate regular diet texture and thin liquid with no overt s/sx of aspiration. Treatment Activities Pt stated he recognized the Clinician from the other day in this room. Pt was oriented to day, month, year, place ( current facility and city) and upcoming events (leaving today for Carriage in [place]). Assessed pt's ability to follow 2-step instructions. 100% accuracy with questions presented in simple structure (i.e., Do X then do Y; Do X before you do Y); however, he was unable to sequence actions in complex sentence structure such as Do X after you do Y. Verbal and written demonstration and explanation were not beneficial. The pt participated appropriately in conversation with occasional evidence of word-finding difficulties. He did make and appear to understand jokes appropriately . Dysphagia: Pt tolerated room temperature thin liquid from straw in single and consecutive sips with no overt s/sx of aspiration, which is an improvement from 2 days ago . Assessment Patient Response to Treatment Good Rehab Potential Fair Impairments Identified Aphasia Auditory Comprehension Cognitive-Linguistic Skills Expressive Language Memory - Short Term Memory - Working Progress Towards Goals Slow Progress Assessment of Overall Progress Improving Assessment of Improvement Pt exhibits mild improvement in expressive language since last seen 2 days ago. He remains well oriented to person, place, and time and is aware of his discharge plan. He continues with expressive/ receptive language deficits and appears most impacted by cognitive deficits. He is able to participate in conversation and up to 2-step tasks when presented in simple , straightforward language and when given time needed for processing of information. Improvement seen with swallow safety, as well. Recommend f/u with [facility] ARCHITECT upon SNF admittance to ensure continued diet tolerance in new environment. Reviewed with Patient Goals Progress Being Made Patient/Caregiver Understanding Good Plan Provided Patient/Caregiver Instruction Plan of Care Questions/Concerns Therapy Recommendations Other Comment Continue ST skilled intervention at SNF Visit Care Team Role Provider Type Cheng Jimenez MD Emergency Provider Physician Address: [address] [place] [address] Aashish Baca MD Attending Provider Physician Family Provider Primary Care Provider Address: [address] [place] [address], [id number] Pinky Herzog MD Admit Provider Physician Other Providers Address: [address] [place] [id number]
--- NOTE | 2018-05-09 15:42 | PC.NURSE ---
day shift report called to [facility] on [address] to Francesco. clarified coumadin order with Dr Covington, verbal order obtained -hold coumadin today -give 2.5 mg tomorrow -recheck PT/INR as ordered on 05/11.
== END 2018-05-09 15:53 | DRG 65 ==
LOC: ED 00:22 → AC 04:56
PROVIDERS: Family Medicine; Admitting Provider Family Medicine; Emergency Provider Emergency Medicine; Family Provider Internal Medicine; PCP Internal Medicine; Visit Provider Internal Medicine
DX: I63.9 Cerebral infarction, unspecified (principal); I69.354 Hemiplegia and hemiparesis following cerebral infarction affecting left non-dominant side; N39.0 Urinary tract infection, site not specified; I47.2 Ventricular tachycardia; I50.22 Chronic systolic (congestive) heart failure; G40.802 Other epilepsy, not intractable, without status epilepticus; G83.21 Monoplegia of upper limb affecting right dominant side; B96.20 Unspecified Escherichia coli [E. coli] as the cause of diseases classified elsewhere; I25.5 Ischemic cardiomyopathy; I48.91 Unspecified atrial fibrillation; Z79.01 Long term (current) use of anticoagulants; N18.3 Chronic kidney disease, stage 3 (moderate); E11.22 Type 2 diabetes mellitus with diabetic chronic kidney disease; Z95.810 Presence of automatic (implantable) cardiac defibrillator; I13.10 Hypertensive heart and chronic kidney disease without heart failure, with stage 1 through stage 4 chronic kidney disease, or unspecified chronic kidney disease; Z66 Do not resuscitate; I69.398 Other sequelae of cerebral infarction
CPT/HCPCS: 36415; 70450; 70496; 70498; 71045; 80048; 81001; 82962; 84484; 85025; 85610; 87077; 87086; 87186; 92507; 92526; 92610; 93005; 93041; 96105; 96125; 97110; 97116; 97162; 97166; 97530; 97535; 99223; 99232; 99233; 99238; 99285; 99291; Q9967

== ENCOUNTER → 2018-08-30 11:27 | Outpatient (CLI) | payer MEDICARE, OTHER, SELFPAY ==
[2018-05-04 05:06] VITALS: BMI 23.8
--- NOTE | 2018-08-30 | DI.CT.S_ITS ---
PROCEDURE: CT SOFT TISSUE NECK W CON INDICATIONS: LARYNX CANCER TECHNIQUE: After the administration of intravenous contrast, 3.0 mm axial sections acquired from the sella to the aortic arch. Additional oblique axial 3.0 mm sections acquired through the pharynx. 3 mm thick coronal and sagittal reformats were generated. For radiation dose reduction, the following was used: automated exposure control. COMPARISON: [facility], CT, CT ANGIO HEAD AND NECK, 05/04/2018, 1:00. [place], [place], PET/CT SKULL BASE TO MID THIGH, 10/09/2016, 11:38. [facility], CT, SOFT TISSUE NECK W CONTRAST, 08/03/2016, 10:49. [place], [place], PET/CT SKULL BASE TO MID THIGH, 03/19/2017, 10:33. FINDINGS: Image quality: Degraded by beam hardening artifact related to metallic dental hardware. Lymph nodes: No enlarged lymph nodes seen throughout the neck. Vessels: Visualized vasculature appears patent. Neck spaces: The oropharynx and nasopharynx demonstrate no mucosal lesions. No definite lesions are identified, however the visualization of the tongue is limited secondary to beam hardening artifact related to metallic dental hardware. Soft tissue prominence of the aryepiglottic folds bilaterally, the anterior margin of left vocal cord and at the vocal cord anterior commissure is noted which has developed in interval since prior CT scan obtained 05/04/2018. No subglottic masses are identified. The valleculae are normally aerated. The piriform sinuses are partially opacified anteriorly by soft tissue prominence of the aryepiglottic folds. Extramucosal spaces appear unremarkable. Glands: The parotid and submandibular glands appear normal. Thyroid gland is within normal limits. Miscellaneous: Visualized brain and orbits appear normal. Lung apices appear clear. Superficial soft tissues appear normal. Left chest wall cardiac pacer is stable. Bones: No suspicious bony lesions. Spine degenerative disc disease and facet arthropathy. Visualized sinuses and mastoids appear unremarkable. IMPRESSION: 1. No lymphadenopathy based on size criteria. 2. Soft tissue prominence involving the aryepiglottic folds, anterior margin of the left vocal cord and the vocal cord anterior commissure which may be related to postradiation change, however residual/recurrent laryngeal neoplasm can be differentiated by imaging alone. Recommend correlation with direct visualization. Dictated by: Rachel Pool MD, PhD on 08/30/2018 at 16:40 Approved by: Rachel Pool MD, PhD on 08/30/2018 at 16:55
[2018-08-30 12:14] LABS: BUN Creatinine Ratio 23.1 (6-22); Blood Urea Nitrogen 30 mg/dL (9-20)
== END ==
PROVIDERS: Family Provider Internal Medicine; PCP Internal Medicine; Visit Provider Specialist
DX: C32.9 Malignant neoplasm of larynx, unspecified (principal)
CPT/HCPCS: 36415; 70491; 82565; 84520; Q9967

== ENCOUNTER 2018-09-08 17:49 | Emergency (ER) | payer MEDICARE, OTHER, SELFPAY ==
[2018-05-04 05:06] VITALS: BMI 23.8
[2018-09-08 18:02] VITALS: BP 132/81; PULSE 89; RESP 16; TEMP 36.6; O2SAT 96; BMI 23.4
[2018-09-08 19:00] VITALS: BP 139/77; PULSE 72; RESP 16; O2SAT 100
--- NOTE | 2018-09-08 19:12 | DI.RAD.S_ITS ---
PROCEDURE: XR CHEST 1V INDICATIONS: shaking arm, hx seizure, weaker hx cva TECHNIQUE: One view of the chest was acquired. COMPARISON: [facility], [place], PET/CT SKULL BASE TO MID THIGH, 03/19/2017, 10:33. [facility], , XR CHEST 1V, 05/04/2018, 0:30. FINDINGS: Surgical changes and devices: There is a cardiac pacemaker in expected position. Lungs and pleura: Hyperinflation suggesting COPD. No pleural effusions or pneumothorax. A nodular density in the right mid lung zone is probably a nipple shadow. Lungs are clear. Mediastinum: Mediastinal contours appear normal. Heart size is mildly increased and globular in shape. Bones and chest wall: No suspicious bony lesions. Overlying soft tissues appear unremarkable. IMPRESSION: 1. Mild cardiomegaly. Globular shape of the heart. Echocardiogram is suggested throughout pericardial effusion. 2. Cardiac pacemaker is in expected position. 3. Suspect COPD. Dictated by: Sophy Koroma M.D. on 09/08/2018 at 19:59 Approved by: Sophy Koroma M.D. on 09/08/2018 at 20:02
--- NOTE | 2018-09-08 19:14 | ED.NEUROSD ---
HPI - Neuro Symptoms/Deficit General Chief Complaint: Extremity Problem,Nontraumatic Stated Complaint: RT ARM ISSUE, SENT BY MD Time Seen by Provider: 09/08/18 18:52 Source: patient and family ( and son) Limitations: no limitations History of Present Illness HPI Narrative: This is a 83-year-old male who comes to the emergency department with complaint of right arm weakness. Patient has a remote history of a stroke in May. He has had chronic right weakness on the right upper extremity. He saw his PT/OT on Wednesday and they felt that his strength was at its normal baseline. On Wednesday he had twitching of the muscles of the arm according to him and his . His states that he had normal speech, the arm itself was not shaking but looks more like the muscles were twitching is resolved after a minute or 2. Patient states that everything seemed to go back to normal. Yesterday morning he noticed that his right upper extremity seemed weaker. Patient denies any new weakness of the right lower extremity. He has not had any new changes to speech. He denies any headaches, vision changes, noon no new numbness or tingling. No chest pain or shortness of breath. No nausea or vomiting or other GI or urinary symptoms. He does have a seizure disorder as well and has been taking Keppra, he has not had any medication changes. His last seizure was in May or June after his stroke. Related Data Home Medications Medication Instructions Recorded Confirmed baclofen 10 mg PO DAILY 05/04/18 09/01/18 potassium chloride [Klor-Con M20] 20 meq PO QAM 05/04/18 09/01/18 Previous Rx's Medication Instructions Recorded digoxin [Lanoxin] 0.125 mg PO QPM #30 tab 02/10/17 furosemide [Lasix] 20 mg PO QAM #120 tab 02/01/18 warfarin [Coumadin] 5 mg PO QDAY #150 tab 02/01/18 diazepam [Valium] 5 mg PO Q DAY #30 tab 05/09/18 levetiracetam 500 mg tablet 500 mg PO BID #180 tab 06/17/18 gemfibrozil 600 mg tablet 600 mg PO BIDAC #180 tab 09/01/18 metoprolol succinate ER 100 mg 100 mg PO QDAY #90 ter 09/01/18 tablet,extended release 24 hr Allergies Allergy/AdvReac Type Severity Reaction Status Date / Time atorvastatin [ATORVASTATIN] Allergy Mild SORE ANKLES Verified 09/08/18 18:02 simvastatin [SIMVASTATIN] Allergy Mild RASH Verified 09/08/18 18:02 influenza virus vaccine, Allergy Unknown Verified 09/08/18 18:02 specific [INFLUENZA VIRUS VACC,SPECIFIC] gabapentin [GABAPENTIN] AdvReac Intermediate altered Verified 09/08/18 18:02 mental status see 05/11/16 note Review of Systems Review of Systems All systems reviewed & are unremarkable except as noted in HPI and below Constitutional Denies fever(s), Denies headache(s) and Reports weakness (Right arm) Eyes Denies blurry vision and Denies change in vision ENT Ears, Nose, Mouth, and Throat: Denies dizziness and Denies headache(s) Cardiovascular Denies chest pain, Denies syncope, Denies dyspnea and Denies dyspnea on exertion Respiratory Denies cough, Denies dyspnea, Denies dyspnea on exertion and Denies wheezing Gastrointestinal Gastrointestinal: Denies abdominal pain, Denies change in bowel habits, Denies diarrhea, Denies nausea and Denies vomiting Genitourinary Denies difficulty urinating Musculoskeletal Denies numbness Neurologic Denies dizziness, Denies syncope, Denies headache(s), Denies numbness, Denies sensory deficit, Reports tremor(s) (Family describes twitching of the muscles in the right arm) and Reports weakness (Right arm) Allergic/Immunologic Denies wheezing [facility] Medical History 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) Seizure disorder (Chronic) 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) Type 2 diabetes mellitus without complication (Chronic 09/03/15) Essential hypertension (Chronic) Chronic atrial fibrillation (Chronic) Chronic systolic congestive heart failure (Chronic 09/23/11) Generalized ischemic myocardial dysfunction (Chronic) Mixed hyperlipidemia (Chronic 09/03/15) Essential tremor (Chronic 04/02/14) 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 HEENT: Atraumatic, pupils are equal round reactive to light, extraocular movements are intact, nares are clear, TMs are clear with no fluid, there is no conjunctival pallor. Throat is clear without any exudates, erythema, tonsillar enlargement or uvular deviation, no facial droop. Patient has a hoarse voice which is his normal baseline. HEART: Regular rate and rhythm without murmur, clicks, rubs. LUNGS:Lungs clear to auscultation, no wheezes, rales, crackles, chest moves symmetrically ABD:bowel sounds normal, soft, non-tender, no guarding, rebound, rigidity, no masses noted, no hepatosplenomegaly :No CVA tenderness, MSCL: Non-tender, no muscle atrophy, muscles strength 5/5 upper and lower extremities, full range of motion, normal gait NEURO:CN 2-12 intact, sensation normal, reflexes 2/4 upper and lower extremities. finger nose finger test normal left, patient has difficulty on the right although patient and family states this is normal and not a new change., heel cesar test normal Initial Vital Signs Initial Vital Signs: Vital Signs Temperature 97.9 F 09/08/18 18:02 Pulse Rate 89 09/08/18 18:02 Respiratory Rate 16 09/08/18 18:02 Blood Pressure 132/81 09/08/18 18:02 Pulse Oximetry 96 09/08/18 18:02 Scores NIH Stroke Scale Level of Conciousness: Alert, keenly responsive Ask month/age: Answers both questions correctly. Open/close eyes, close hand: Performs both tasks correctly Best gaze horizontal: Normal Visual mata: No visual loss Facial palsy: Normal symetrical movement Left arm drift: No drift for full 10 sec Right arm drift: No drift for full 10 sec Left leg drift: No drift for full 10 sec Right leg drift: No drift for full 10 sec Limb ataxia: Present in one limb Sensory on face/arms/legs: Normal, no sensory loss Best language: No aphasia, normal Dysarthria: Normal Extinction or inattention: No abnormality Total NIH Stroke scale score: 1 Course Orders Ordered: ED Orders 09/08/18 19:12 XR chest 1V Stat 09/08/18 19:13 CT head/brain wo con Stat EKG-12 Lead Stat 09/08/18 19:50 Complete Blood Count AUTO DIFF Stat Comprehensive Metabolic Panel Stat Partial Thromboplastin Time Stat Prothrombin Time INR Stat Troponin I Stat Discontinued Medications Sodium Chloride (Normal Saline 0.9%) 1,000 mls @ 150 mls/hr IV CONT SANDRA Last Admin: 09/08/18 20:08 Dose: Not Given Vital Signs - 8 hr 09/08/18 18:02 09/08/18 19:00 09/08/18 20:00 Temperature 97.9 F Pulse Rate 89 72 71 Respiratory Rate 16 16 12 Blood Pressure 132/81 Blood Pressure [Left Arm] 139/77 133/83 Pulse Oximetry 96 100 100 09/08/18 21:19 Temperature Pulse Rate 70 Respiratory Rate 13 Blood Pressure Blood Pressure [Left Arm] 132/78 Pulse Oximetry 100 MDM - Neuro Symptoms/Deficit Lab Data Attestation: I reviewed the patient's lab results. Result diagrams: 09/08/18 19:50 09/08/18 19:50 Lab Results 09/08/18 09/08/18 09/08/18 Range/Units 19:50 19:50 19:50 WBC 6.0 (4.5-11.0) X10^3/uL RBC 4.05 L (4.5-5.9) X10^6/uL Hgb 10.8 L (13.5-17.5) g/dL Hct 33.6 L (41-53) % MCV 83.2 (80-100) fL MCH 26.7 (26-34) PG MCHC 32.1 (30-36) % RDW 16.9 H (11.6-14.8) % Plt Count 272 (150-400) X10^3/uL Neut % (Auto) 46.7 L (50-75) % Lymph % (Auto) 35.5 (25-40) % Vernon % (Auto) 11.8 (3-14) % Eos % (Auto) 4.8 H (2-4) % Baso % (Auto) 1.2 (0-2) % Neut # (Auto) 2800 L (6942-6650) /uL PT 14.0 H (10.1-12.7) SECONDS INR 1.3 (0.9-1.3) APTT 33 (26.4-36.2) SECONDS Sodium 146 H (137-145) mmol/L Potassium 5.0 (3.4-5.1) mmol/L Chloride 108 H (98-107) mmol/L Carbon Dioxide 27 (22-32) mmol/L BUN 27 H (9-20) mg/dL Creatinine 1.30 H (0.66-1.25) mg/dL Estimated GFR 53.0 L (>60) mL/min BUN/Creatinine Ratio 20.8 (6-22) Glucose 92 (80-110) mg/dL Calcium 9.8 (8.4-10.2) mg/dL Total Bilirubin 0.3 (0.2-1.3) mg/dL AST 23 (17-59) IU/L ALT 21 (21-72) IU/L Alkaline Phosphatase 93 (38-126) U/L Troponin I 0.058 H (0.01-0.034) ng/mL Total Protein 7.0 (6.3-8.2) g/dL Albumin 4.1 (3.5-5.0) g/dL Globulin 2.9 (1.7-4.1) g/dL Albumin/Globulin Ratio 1.4 (1.0-2.8) Imaging Data CT scan - head: Radiologist's impression: [address] [address] [address] Scan Report Signed Patient: Agnes Caldwell#: [id number] : 7Acct:[id number] Age/Sex: 83 / MDate of Service: 09/08/18 Loc: ED Accession Number: [id number] Procedure: CT head/brain wo con Ordering Provider: Rajwinder Day D.O. PROCEDURE: CT HEAD/BRAIN WO CON INDICATIONS: left arm shaking, noy, hx seizure, weaker since yesterda TECHNIQUE: Noncontrast 4.5 mm thick angled axial sections acquired from the foramen magnum to the vertex, with coronal and sagittal reformats. For radiation dose reduction, the following was used: automated exposure control, adjustment of mA and/or kV according to patient size. COMPARISON: [facility], CT, CT HEAD/BRAIN WO CON, 05/04/2018, 0:02. FINDINGS: Image quality: Excellent. CSF spaces: Basal cisterns are patent. No extra-axial fluid collections. The ventricles are symmetric in size and shape. Brain: Large old parietal infarcts are present bilaterally, unchanged. No intracranial bleeds or masses. There is moderate cerebral volume loss for age, with resultant ventricular and sulcal prominence. There are severe periventricular and deep white matter chronic small vessel ischemic changes. There is intracranial internal carotid artery atherosclerosis. Skull and face: Calvarium and visualized facial bones appear intact, without suspicious lesions. Sinuses: Visualized sinuses and mastoids are clear. IMPRESSION: 1. No acute intracranial abnormalities. 2. Stable large old parietal infarcts bilaterally. 3. Cerebral volume loss and chronic microvascular ischemic changes. Dictated by: Sophy Koroma M.D. on 09/08/2018 at 19:57 Approved by: Sophy Koroma M.D. on 09/08/2018 at 19:59 Chest x-ray: Radiologist's impression: [place] [address] XRay Report Signed Patient: Jasen Caldwell#: [id number] : 7Acct:[id number] Age/Sex: 83 / MDate of Service: 09/08/18 Loc: ED Accession Number: [id number] Procedure: XR chest 1V Ordering Provider: Rajwinder Day D.O. PROCEDURE: XR CHEST 1V INDICATIONS: shaking arm, hx seizure, weaker hx cva TECHNIQUE: One view of the chest was acquired. COMPARISON: [place], [place], PET/CT SKULL BASE TO MID THIGH, 03/19/2017, 10:33. [facility], XR CHEST 1V, 05/04/2018, 0:30. FINDINGS: Surgical changes and devices: There is a cardiac pacemaker in expected position. Lungs and pleura: Hyperinflation suggesting COPD. No pleural effusions or pneumothorax. A nodular density in the right mid lung zone is probably a nipple shadow. Lungs are clear. Mediastinum: Mediastinal contours appear normal. Heart size is mildly increased and globular in shape. Bones and chest wall: No suspicious bony lesions. Overlying soft tissues appear unremarkable. IMPRESSION: 1. Mild cardiomegaly. Globular shape of the heart. Echocardiogram is suggested throughout pericardial effusion. 2. Cardiac pacemaker is in expected position. 3. Suspect COPD. Dictated by: Sophy Koroma M.D. on 09/08/2018 at 19:59 Approved by: Sophy Koroma M.D. on 09/08/2018 at 20:02 ECG Data Attestation: I personally reviewed and interpreted this ECG as follows: Prior ECG tracings: available for review Interpretation: Ventricularly paced rhythm with a rate of 70, QRS of 176 and QTC 460. Patient has prior EKG from 05/04/2018 majority leads appear similar. MDM Narrative Medical decision making narrative: Patient anemia is stable, no elevated wbc, INR is subtherapeutic, creatinine is stable at 1.3. Sodium and potassium do not have any major changes. Patient's troponin is indeterminate but is better than it has been on past visits. Is 0.058 today and he has been asymptomatic with no chest pain or shortness breath. Head CT shows no acute intracranial abnormalities and stable large old parietal infarcts bilaterally. Chest x-ray shows some mild cardiomegaly and globular shape of the heart. Echocardiogram is suggested. Cardiac pacemaker is in expected position. Patient has been taking his Keppra regularly. Lung disease physical exam he does have ataxia Um but his family and patient state that that is normal for him. In his upper extremity on physical exam is not weaker than the left. Subjectively for the patient it is. We discussed possible causes such as stroke, if he may have had a seizure, if he may have had some unmasking of his prior deficit versus other causes. Discussed possibly getting an MRI as an outpatient. Discussed with Dr. Sebastian will help facilitate follow-up with Dr. Baca. Discharge Plan Departure Patient Disposition: Home Clinical Impression: Muscle twitching Discharge Date/Time: 09/08/18 21:48 Interventions: ED Discharge Assessment Last Done: 09/08/18 21:47 Activity Restrictions/Additional Instructions: Call tomorrow morning to set up an appointment time with Dr. Baca. They may wish to schedule an MRI as an outpatient for further evaluation. Double your dose of warfarin/coumadin tonight, you will need INR recheck in 1-2 days. You are subtherapeutic today. Continue your other medications as prescribed. Return to the ER for fevers, sudden severe headaches, altered mental status, new weakness, numbness, sudden speech or vision changes or other new or concerning symptoms. Prescriptions: No Action digoxin [Lanoxin] 125 MCG tablet 0.125 mg PO QPM Qty: 30 RF: 11 warfarin [Coumadin] 5 MG tablet 5 mg PO QDAY Qty: 150 RF: PRN furosemide [Lasix] 20 MG tablet 20 mg PO QAM Qty: 120 RF: 3 levetiracetam 500 mg tablet 500 mg PO BID Qty: 180 RF: 3 gemfibrozil 600 mg tablet 600 mg PO BIDAC Qty: 180 RF: 3 metoprolol succinate 100 mg tablet extended release 24 hr 100 mg PO QDAY Qty: 90 RF: 3 potassium chloride [Klor-Con M20] 20 mEq tablet,ER particles/crystals 20 meq PO QAM RF: 0 baclofen 10 MG tablet 10 mg PO DAILY RF: 0 diazepam [Valium] 5 MG tablet 5 mg PO Q DAY Qty: 30 RF: 3 Referrals: Aashish Baca MD [Primary Care Provider] -
--- NOTE | 2018-09-08 19:24 | ED_ITS ---
HPI - Neuro Symptoms/Deficit General Chief Complaint: Extremity Problem,Nontraumatic Stated Complaint: RT ARM ISSUE, SENT BY MD Time Seen by Provider: 09/08/18 18:52 Source: patient and family ( and son) Limitations: no limitations History of Present Illness HPI Narrative: This is a 83-year-old male who comes to the emergency department with complaint of right arm weakness. Patient has a remote history of a stroke in May. He has had chronic right weakness on the right upper extremity. He saw his PT/OT on Wednesday and they felt that his strength was at its normal baseline. On Wednesday he had twitching of the muscles of the arm according to him and his . His states that he had normal speech, the arm itself was not shaking but looks more like the muscles were twitching is resolved after a minute or 2. Patient states that everything seemed to go back to normal. Yesterday morning he noticed that his right upper extremity seemed weaker. Patient denies any new weakness of the right lower extremity. He has not had any new changes to speech. He denies any headaches, vision changes, noon no new numbness or tingling. No chest pain or shortness of breath. No nausea or vomiting or other GI or urinary symptoms. He does have a seizure disorder as well and has been taking Keppra, he has not had any medication changes. His last seizure was in May or June after his stroke. Related Data Home Medications Medication Instructions Recorded Confirmed baclofen 10 mg PO DAILY 05/04/18 09/01/18 potassium chloride [Klor-Con M20] 20 meq PO QAM 05/04/18 09/01/18 Previous Rx's Medication Instructions Recorded digoxin [Lanoxin] 0.125 mg PO QPM #30 tab 02/10/17 furosemide [Lasix] 20 mg PO QAM #120 tab 02/01/18 warfarin [Coumadin] 5 mg PO QDAY #150 tab 02/01/18 diazepam [Valium] 5 mg PO Q DAY #30 tab 05/09/18 levetiracetam 500 mg tablet 500 mg PO BID #180 tab 06/17/18 gemfibrozil 600 mg tablet 600 mg PO BIDAC #180 tab 09/01/18 metoprolol succinate ER 100 mg 100 mg PO QDAY #90 ter 09/01/18 tablet,extended release 24 hr Allergies Allergy/AdvReac Type Severity Reaction Status Date / Time atorvastatin [ATORVASTATIN] Allergy Mild SORE ANKLES Verified 09/08/18 18:02 simvastatin [SIMVASTATIN] Allergy Mild RASH Verified 09/08/18 18:02 influenza virus vaccine, Allergy Unknown Verified 09/08/18 18:02 specific [INFLUENZA VIRUS VACC,SPECIFIC] gabapentin [GABAPENTIN] AdvReac Intermediate altered Verified 09/08/18 18:02 mental status see 05/11/16 note Review of Systems Review of Systems All systems reviewed & are unremarkable except as noted in HPI and below Constitutional Denies fever(s), Denies headache(s) and Reports weakness (Right arm) Eyes Denies blurry vision and Denies change in vision ENT Ears, Nose, Mouth, and Throat: Denies dizziness and Denies headache(s) Cardiovascular Denies chest pain, Denies syncope, Denies dyspnea and Denies dyspnea on exertion Respiratory Denies cough, Denies dyspnea, Denies dyspnea on exertion and Denies wheezing Gastrointestinal Gastrointestinal: Denies abdominal pain, Denies change in bowel habits, Denies diarrhea, Denies nausea and Denies vomiting Genitourinary Denies difficulty urinating Musculoskeletal Denies numbness Neurologic Denies dizziness, Denies syncope, Denies headache(s), Denies numbness, Denies sensory deficit, Reports tremor(s) (Family describes twitching of the muscles in the right arm) and Reports weakness (Right arm) Allergic/Immunologic Denies wheezing [facility] Medical History 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) Seizure disorder (Chronic) 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) Type 2 diabetes mellitus without complication (Chronic 09/03/15) Essential hypertension (Chronic) Chronic atrial fibrillation (Chronic) Chronic systolic congestive heart failure (Chronic 09/23/11) Generalized ischemic myocardial dysfunction (Chronic) Mixed hyperlipidemia (Chronic 09/03/15) Essential tremor (Chronic 04/02/14) 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 HEENT: Atraumatic, pupils are equal round reactive to light, extraocular movements are intact, nares are clear, TMs are clear with no fluid, there is no conjunctival pallor. Throat is clear without any exudates, erythema, tonsillar enlargement or uvular deviation, no facial droop. Patient has a hoarse voice which is his normal baseline. HEART: Regular rate and rhythm without murmur, clicks, rubs. LUNGS:Lungs clear to auscultation, no wheezes, rales, crackles, chest moves symmetrically ABD:bowel sounds normal, soft, non-tender, no guarding, rebound, rigidity, no masses noted, no hepatosplenomegaly :No CVA tenderness, MSCL: Non-tender, no muscle atrophy, muscles strength 5/5 upper and lower extremities, full range of motion, normal gait NEURO:CN 2-12 intact, sensation normal, reflexes 2/4 upper and lower extremities. finger nose finger test normal left, patient has difficulty on the right although patient and family states this is normal and not a new change., heel cesar test normal Initial Vital Signs Initial Vital Signs: Vital Signs Temperature 97.9 F 09/08/18 18:02 Pulse Rate 89 09/08/18 18:02 Respiratory Rate 16 09/08/18 18:02 Blood Pressure 132/81 09/08/18 18:02 Pulse Oximetry 96 09/08/18 18:02 Scores NIH Stroke Scale Level of Conciousness: Alert, keenly responsive Ask month/age: Answers both questions correctly. Open/close eyes, close hand: Performs both tasks correctly Best gaze horizontal: Normal Visual mata: No visual loss Facial palsy: Normal symetrical movement Left arm drift: No drift for full 10 sec Right arm drift: No drift for full 10 sec Left leg drift: No drift for full 10 sec Right leg drift: No drift for full 10 sec Limb ataxia: Present in one limb Sensory on face/arms/legs: Normal, no sensory loss Best language: No aphasia, normal Dysarthria: Normal Extinction or inattention: No abnormality Total NIH Stroke scale score: 1 Course Orders Ordered: ED Orders 09/08/18 19:12 XR chest 1V Stat 09/08/18 19:13 CT head/brain wo con Stat EKG-12 Lead Stat 09/08/18 19:50 Complete Blood Count AUTO DIFF Stat Comprehensive Metabolic Panel Stat Partial Thromboplastin Time Stat Prothrombin Time INR Stat Troponin I Stat Discontinued Medications Sodium Chloride (Normal Saline 0.9%) 1,000 mls @ 150 mls/hr IV CONT SANDRA Last Admin: 09/08/18 20:08 Dose: Not Given Vital Signs - 8 hr 09/08/18 18:02 09/08/18 19:00 09/08/18 20:00 Temperature 97.9 F Pulse Rate 89 72 71 Respiratory Rate 16 16 12 Blood Pressure 132/81 Blood Pressure [Left Arm] 139/77 133/83 Pulse Oximetry 96 100 100 09/08/18 21:19 Temperature Pulse Rate 70 Respiratory Rate 13 Blood Pressure Blood Pressure [Left Arm] 132/78 Pulse Oximetry 100 MDM - Neuro Symptoms/Deficit Lab Data Attestation: I reviewed the patient's lab results. Result diagrams: 09/08/18 19:50 09/08/18 19:50 Lab Results 09/08/18 09/08/18 09/08/18 Range/Units 19:50 19:50 19:50 WBC 6.0 (4.5-11.0) X10^3/uL RBC 4.05 L (4.5-5.9) X10^6/uL Hgb 10.8 L (13.5-17.5) g/dL Hct 33.6 L (41-53) % MCV 83.2 (80-100) fL MCH 26.7 (26-34) PG MCHC 32.1 (30-36) % RDW 16.9 H (11.6-14.8) % Plt Count 272 (150-400) X10^3/uL Neut % (Auto) 46.7 L (50-75) % Lymph % (Auto) 35.5 (25-40) % [place] % (Auto) 11.8 (3-14) % Eos % (Auto) 4.8 H (2-4) % Baso % (Auto) 1.2 (0-2) % Neut # (Auto) 2800 L (4178-9830) /uL PT 14.0 H (10.1-12.7) SECONDS INR 1.3 (0.9-1.3) APTT 33 (26.4-36.2) SECONDS Sodium 146 H (137-145) mmol/L Potassium 5.0 (3.4-5.1) mmol/L Chloride 108 H (98-107) mmol/L Carbon Dioxide 27 (22-32) mmol/L BUN 27 H (9-20) mg/dL Creatinine 1.30 H (0.66-1.25) mg/dL Estimated GFR 53.0 L (>60) mL/min BUN/Creatinine Ratio 20.8 (6-22) Glucose 92 (80-110) mg/dL Calcium 9.8 (8.4-10.2) mg/dL Total Bilirubin 0.3 (0.2-1.3) mg/dL AST 23 (17-59) IU/L ALT 21 (21-72) IU/L Alkaline Phosphatase 93 (38-126) U/L Troponin I 0.058 H (0.01-0.034) ng/mL Total Protein 7.0 (6.3-8.2) g/dL Albumin 4.1 (3.5-5.0) g/dL Globulin 2.9 (1.7-4.1) g/dL Albumin/Globulin Ratio 1.4 (1.0-2.8) Imaging Data CT scan - head: Radiologist's impression: [address] [address] [address] Scan Report Signed Patient: Agnes Caldwell#: [id number] : 7Acct:[id number] Age/Sex: 83 / MDate of Service: 09/08/18 Loc: ED Accession Number: [id number] Procedure: CT head/brain wo con Ordering Provider: Rajwinder Day D.O. PROCEDURE: CT HEAD/BRAIN WO CON INDICATIONS: left arm shaking, noy, hx seizure, weaker since yesterda TECHNIQUE: Noncontrast 4.5 mm thick angled axial sections acquired from the foramen magnum to the vertex, with coronal and sagittal reformats. For radiation dose reduction, the following was used: automated exposure control, adjustment of mA and/or kV according to patient size. COMPARISON: [facility], CT, CT HEAD/BRAIN WO CON, 05/04/2018, 0:02. FINDINGS: Image quality: Excellent. CSF spaces: Basal cisterns are patent. No extra-axial fluid collections. The ventricles are symmetric in size and shape. Brain: Large old parietal infarcts are present bilaterally, unchanged. No intracranial bleeds or masses. There is moderate cerebral volume loss for age, with resultant ventricular and sulcal prominence. There are severe periventricular and deep white matter chronic small vessel ischemic changes. There is intracranial internal carotid artery atherosclerosis. Skull and face: Calvarium and visualized facial bones appear intact, without suspicious lesions. Sinuses: Visualized sinuses and mastoids are clear. IMPRESSION: 1. No acute intracranial abnormalities. 2. Stable large old parietal infarcts bilaterally. 3. Cerebral volume loss and chronic microvascular ischemic changes. Dictated by: Sophy Koroma M.D. on 09/08/2018 at 19:57 Approved by: Sophy Koroma M.D. on 09/08/2018 at 19:59 Chest x-ray: Radiologist's impression: [place] [address] XRay Report Signed Patient: Jasen Caldwell#: [id number] : 7Acct:[id number] Age/Sex: 83 / MDate of Service: 09/08/18 Loc: ED Accession Number: [id number] Procedure: XR chest 1V Ordering Provider: Rajwinder Day D.O. PROCEDURE: XR CHEST 1V INDICATIONS: shaking arm, hx seizure, weaker hx cva TECHNIQUE: One view of the chest was acquired. COMPARISON: [place], [place], PET/CT SKULL BASE TO MID THIGH, 03/19/2017, 10: 33. [facility], XR CHEST 1V, 05/04/2018, 0:30. FINDINGS: Surgical changes and devices: There is a cardiac pacemaker in expected position. Lungs and pleura: Hyperinflation suggesting COPD. No pleural effusions or pneumothorax. A nodular density in the right mid lung zone is probably a nipple shadow. Lungs are clear. Mediastinum: Mediastinal contours appear normal. Heart size is mildly increased and globular in shape. Bones and chest wall: No suspicious bony lesions. Overlying soft tissues appear unremarkable. IMPRESSION: 1. Mild cardiomegaly. Globular shape of the heart. Echocardiogram is suggested throughout pericardial effusion. 2. Cardiac pacemaker is in expected position. 3. Suspect COPD. Dictated by: Sophy Koroma M.D. on 09/08/2018 at 19:59 Approved by: Sophy Koroma M.D. on 09/08/2018 at 20:02 ECG Data Attestation: I personally reviewed and interpreted this ECG as follows: Prior ECG tracings: available for review Interpretation: Ventricularly paced rhythm with a rate of 70, QRS of 176 and QTC 460. Patient has prior EKG from 05/04/2018 majority leads appear similar. MDM Narrative Medical decision making narrative: Patient anemia is stable, no elevated wbc, INR is subtherapeutic, creatinine is stable at 1.3. Sodium and potassium do not have any major changes. Patient's troponin is indeterminate but is better than it has been on past visits. Is 0.058 today and he has been asymptomatic with no chest pain or shortness breath. Head CT shows no acute intracranial abnormalities and stable large old parietal infarcts bilaterally. Chest x-ray shows some mild cardiomegaly and globular shape of the heart. Echocardiogram is suggested. Cardiac pacemaker is in expected position. Patient has been taking his Keppra regularly. Lung disease physical exam he does have ataxia Um but his family and patient state that that is normal for him. In his upper extremity on physical exam is not weaker than the left. Subjectively for the patient it is. We discussed possible causes such as stroke, if he may have had a seizure, if he may have had some unmasking of his prior deficit versus other causes. Discussed possibly getting an MRI as an outpatient. Discussed with Dr. Sebastian will help facilitate follow-up with Dr. Baca. Discharge Plan Departure Patient Disposition: Home Clinical Impression: Muscle twitching Discharge Date/Time: 09/08/18 21:48 Interventions: ED Discharge Assessment Last Done: 09/08/18 21:47 Activity Restrictions/Additional Instructions: Call tomorrow morning to set up an appointment time with Dr. Baca. They may wish to schedule an MRI as an outpatient for further evaluation. Double your dose of warfarin/coumadin tonight, you will need INR recheck in 1-2 days. You are subtherapeutic today. Continue your other medications as prescribed. Return to the ER for fevers, sudden severe headaches, altered mental status, new weakness, numbness, sudden speech or vision changes or other new or concerning symptoms. Prescriptions: No Action digoxin [Lanoxin] 125 MCG tablet 0.125 mg PO QPM Qty: 30 RF: 11 warfarin [Coumadin] 5 MG tablet 5 mg PO QDAY Qty: 150 RF: PRN furosemide [Lasix] 20 MG tablet 20 mg PO QAM Qty: 120 RF: 3 levetiracetam 500 mg tablet 500 mg PO BID Qty: 180 RF: 3 gemfibrozil 600 mg tablet 600 mg PO BIDAC Qty: 180 RF: 3 metoprolol succinate 100 mg tablet extended release 24 hr 100 mg PO QDAY Qty: 90 RF: 3 potassium chloride [Klor-Con M20] 20 mEq tablet,ER particles/crystals 20 meq PO QAM RF: 0 baclofen 10 MG tablet 10 mg PO DAILY RF: 0 diazepam [Valium] 5 MG tablet 5 mg PO Q DAY Qty: 30 RF: 3 Referrals: Aashish Baca MD [Primary Care Provider] -
[2018-09-08 20:00] VITALS: BP 133/83; PULSE 71; RESP 12; O2SAT 100
[2018-09-08 20:06] LABS: Add Manual Diff / Slide Review NO; Basophils Percent Auto 1.2 % (0-2); Eosinophils Percent Auto 4.8 % (2-4); Hematocrit 33.6 % (41-53); Hemoglobin 10.8 g/dL (13.5-17.5); Lymphocytes Percent Auto 35.5 % (25-40); Mean Corpuscular HGB Conc 32.1 % (30-36); Mean Corpuscular Hemoglobin 26.7 PG (26-34); Mean Corpuscular Volume 83.2 fL (80-100); Monocytes Percent Auto 11.8 % (3-14); Neutrophils Absolute Auto 2800 /uL (3000-5900); Neutrophils Percent Auto 46.7 % (50-75); Platelet Count 272 X10^3/uL (150-400); Red Blood Cell Count 4.05 X10^6/uL (4.5-5.9); Red Cell Distribution Width 16.9 % (11.6-14.8)
--- NOTE | 2018-09-08 20:06 | PC.NURSE ---
Patient and reports episode on wednesday of right arm muscles moving and avtar, like we could see the muscles moving all over the arm. This episode lasted a few minutes and then resolved. History of same episode in leg some years ago. History of strokes. Physical therapist told him to come here to get checked out.
[2018-09-08 20:14] LABS: INR 1.3 (0.9-1.3)
[2018-09-08 20:17] LABS: PTT Partial Thromboplastin Tim 33 SECONDS (26.4-36.2)
[2018-09-08 20:19] LABS: Alanine Aminotransferase 21 IU/L (21-72); Albumin 4.1 g/dL (3.5-5.0); Albumin Globulin Ratio 1.4 (1.0-2.8); Alkaline Phosphatase 93 U/L (38-126); Aspartate Aminotransferase 23 IU/L (17-59); BUN Creatinine Ratio 20.8 (6-22); Bilirubin Total 0.3 mg/dL (0.2-1.3); Blood Urea Nitrogen 27 mg/dL (9-20); Calcium 9.8 mg/dL (8.4-10.2); Carbon Dioxide 27 mmol/L (22-32); Chloride 108 mmol/L (98-107); Globulin 2.9 g/dL (1.7-4.1); Glucose 92 mg/dL (80-110); HEMOLYSIS < 15 (0-50); Sodium 146 mmol/L (137-145)
[2018-09-08 20:30] LABS: Troponin I 0.058 ng/mL (0.01-0.034)
[2018-09-08 21:19] VITALS: BP 132/78; PULSE 70; RESP 13; O2SAT 100
== END 2018-09-08 21:48 | disposition home or self-care (01) ==
PROVIDERS: Emergency Provider Emergency Medicine; Family Provider Internal Medicine; PCP Internal Medicine
DX: R25.3 Fasciculation (principal); Z86.73 Personal history of transient ischemic attack (TIA), and cerebral infarction without residual deficits
CPT/HCPCS: 36591; 70450; 71045; 80053; 84484; 85025; 85610; 85730; 93005; 99283; 99285

== ENCOUNTER 2018-09-20 16:33 | Emergency (ER) | payer MEDICARE, OTHER, SELFPAY ==
[2018-05-04 05:06] VITALS: BMI 23.8
--- NOTE | 2018-09-20 16:40 | ED_ITS ---
HPI - Skin/Abscess/Foreign Bdy <RANULFO Mcdermott - Last Filed: 09/20/18 21:47> General Chief complaint: Skin/Abscess/Foreign Body Stated complaint: STATES BLISTER ON BUTTOCKS Time Seen by Provider: 09/20/18 16:36 Source: patient Mode of arrival: ambulatory Limitations: no limitations History of Present Illness HPI narrative: 83-year-old male with history of AFib and also CVA nonsmoker and is currently on warfarin here for complaint of having a a sore to his left buttocks over the past couple of days. He does state that he had a fall a couple of days ago he did not have any pain after the fall. He does report that he is ambulatory after the fall. Reports that he started noticing a little swelling to his left buttocks area. He denies any fevers or chills. No drainage from the area. Increased pain with palpation to the area. He denies any other to areas of discomfort at this time. Related Data Home Medications Medication Instructions Recorded Confirmed baclofen 10 mg PO DAILY 05/04/18 09/21/18 potassium chloride [Klor-Con M20] 20 meq PO QAM 05/04/18 09/21/18 metoprolol succinate [Toprol XL] 100 mg PO DAILY 09/20/18 09/21/18 warfarin [Coumadin] See Label Instructions .ROUTE 09/20/18 09/21/18 .COMPLEX furosemide 20 mg PO QAM 09/21/18 09/21/18 Previous Rx's Medication Instructions Recorded digoxin [Lanoxin] 0.125 mg PO QPM #30 tab 02/10/17 diazepam [Valium] 5 mg PO Q DAY #30 tab 05/09/18 levetiracetam 500 mg tablet 500 mg PO BID #180 tab 06/17/18 gemfibrozil 600 mg tablet 600 mg PO BIDAC #180 tab 09/01/18 clindamycin HCl 300 mg PO TID #21 cap 09/20/18 Allergies Allergy/AdvReac Type Severity Reaction Status Date / Time atorvastatin [ATORVASTATIN] Allergy Mild SORE ANKLES Verified 09/21/18 14:25 simvastatin [SIMVASTATIN] Allergy Mild RASH Verified 09/21/18 14:25 influenza virus vaccine, Allergy Unknown Verified 09/21/18 14:25 specific [INFLUENZA VIRUS VACC,SPECIFIC] gabapentin [GABAPENTIN] AdvReac Intermediate altered Verified 09/21/18 14:25 mental status see 05/11/16 note Review of Systems <RANULFO Mcdermott - Last Filed: 09/20/18 21:47> Constitutional Denies chills, Denies fever(s), Denies lethargy and Denies weakness Eyes Denies change in vision, Denies eye discharge, Denies irritation and Denies loss of vision ENT Ears, Nose, Mouth, and Throat: Denies change in voice, Denies neck pain and Denies sore throat Cardiovascular Denies chest pain, Denies irregular heart rhythm, Denies lightheadedness, Denies palpitations, Denies dyspnea, Denies dyspnea on exertion and Denies orthopnea Respiratory Denies cough, Denies dyspnea, Denies dyspnea on exertion and Denies wheezing Gastrointestinal Gastrointestinal: Denies abdominal pain, Denies change in bowel habits, Denies diarrhea, Denies nausea and Denies vomiting Genitourinary Denies hematuria, Denies flank pain, Denies urinary incontinence and Denies urinary urgency Musculoskeletal Denies neck pain Integumentary/Breasts Comments: Raised area of tenderness to left buttock Neurologic Denies confusion, Denies loss of vision and Denies weakness Psychiatric Denies anxiety, Denies confusion, Denies depression, Denies homicidal ideation and Denies suicidal ideation Endocrine Denies palpitations Allergic/Immunologic Denies wheezing Exam <RANULFO Mcdermott - Last Filed: 09/20/18 21:47> Initial Vital Signs Initial Vital Signs: Vital Signs Blood Pressure 123/95 H 09/20/18 16:55 Pulse Oximetry 96 09/20/18 16:55 Const General: cooperative and well developed Nutritional Appearance: well nourished Orientation: alert, awake, oriented x3 and not confused [facility] Mouth: oral mucosae normal and moist mucous membranes Eyes Conjunctivae: conjunctivae normal Sclera: sclerae normal Pupils: PERRL EOM: EOM intact bilaterally Resp Effort & Inspection: normal respiratory effort, able to speak in complete sentences, no respiratory distress and no use of accessory muscles Auscultation: clear to auscultation bilaterally, no rales, no rhonchi and no wheezes Cardio Rate: regular rate Rhythm: regular rhythm Heart Sounds: no click, no gallops, no murmurs and no rubs Pulses: normal peripheral pulses GI Inspection: non-distended Palpation: soft, no hepatosplenomegaly, No guarding, No pulsatile mass and No tender Auscultation: normal bowel sounds Skin Other: 6 cm x 5 cm area to the left buttocks that is raised erythematous positive fluctuance and induration. No drainage. Erythema limited to the raised area. Distal sensation is intact. Distal pulses are intact. Distal range of motion is intact. Neuro General: alert, oriented x3, gait normal and no focal motor deficits Speech: speech normal <Korin New MD - Last Filed: 09/27/18 00:03> Initial Vital Signs Initial Vital Signs: Vital Signs Blood Pressure 123/95 H 09/20/18 16:55 Pulse Oximetry 96 09/20/18 16:55 Procedures <RANULFO Mcdermott - Last Filed: 09/20/18 21:47> Abscess I/D Site: other (Left buttock) Side (if applicable): left Sedation/analgesia: none Local Anesthetic: lidocaine 1% Amount of anesthesia used (mL): 4 Technique: incised with #11 blade Amount of fluid expressed (mL): 60 Irrigation: Yes Packing used?: plain Course <RANULFO Mcdermott - Last Filed: 09/20/18 21:47> Orders Ordered: ED Orders 09/20/18 17:32 Wound Culture and Gram Stain Stat Vital Signs - 8 hr 09/20/18 16:55 09/20/18 18:26 Temperature 97.5 F L Pulse Rate 84 Respiratory Rate 16 Blood Pressure 123/95 H 121/77 Pulse Oximetry 96 96 <Korin New MD - Last Filed: 09/27/18 00:03> Orders Ordered: ED Orders 09/20/18 17:32 Wound Culture and Gram Stain Stat Vital Signs - 8 hr 09/20/18 16:55 09/20/18 18:26 Temperature 97.5 F L Pulse Rate 84 Respiratory Rate 16 Blood Pressure 123/95 H 121/77 Pulse Oximetry 96 96 MDM - Skin/Abscess/Foreign Bdy <RANULFO Mcdermott - Last Filed: 09/20/18 21:47> MDM Narrative Medical decision making narrative: Abscess to the left buttocks was incised and drained with a good amount of purulent drainage expelled. Wound culture was obtained and is pending. Packing was placed. Wound to be rechecked tomorrow at primary care office for recheck and for repacking. He is placed on clindamycin. [id number] Tylenol as needed for any discomfort. For any worsening symptoms return to the emergency room. Discharge Plan Departure Patient Disposition: Home Clinical Impression: Abscess of buttock, left Discharge Date/Time: 09/20/18 18:34 Interventions: ED Discharge Assessment Last Done: 09/20/18 18:26 Instructions: Incision and Drainage of a Skin Abscess Activity Restrictions/Additional Instructions: Abscess to the left buttocks area was incised and drained today in the emergency room. UR placed on antibiotic called clindamycin use as directed. Use [id number] Tylenol as needed for any discomfort. Wound will need to be recheck and repacked tomorrow follow up with primary care provider tomorrow. For for any worsening symptoms return to the emergency room. Prescriptions: New clindamycin HCl 300 mg capsule 300 mg PO TID Qty: 21 RF: 0 No Action digoxin [Lanoxin] 125 MCG tablet 0.125 mg PO QPM Qty: 30 RF: 11 levetiracetam 500 mg tablet 500 mg PO BID Qty: 180 RF: 3 gemfibrozil 600 mg tablet 600 mg PO BIDAC Qty: 180 RF: 3 potassium chloride [Klor-Con M20] 20 mEq tablet,ER particles/crystals 20 meq PO QAM RF: 0 baclofen 10 MG tablet 10 mg PO DAILY RF: 0 diazepam [Valium] 5 MG tablet 5 mg PO Q DAY Qty: 30 RF: 3 metoprolol succinate [Toprol XL] 100 mg tablet extended release 24 hr 100 mg PO DAILY RF: 0 warfarin [Coumadin] 5 MG tablet See Label Instructions .ROUTE .COMPLEX RF: 0 furosemide 20 mg tablet 20 mg PO QAM RF: 0 Referrals: Aashish Baca MD [Primary Care Provider] -
[2018-09-20 16:55] VITALS: BP 123/95; O2SAT 96
[2018-09-20 18:26] VITALS: BP 121/77; PULSE 84; RESP 16; TEMP 36.4; O2SAT 96
== END 2018-09-20 18:34 | disposition home or self-care (01) ==
PROVIDERS: Emergency Provider Nurse Practitioner Family; Family Provider Internal Medicine; PCP Internal Medicine
DX: L02.31 Cutaneous abscess of buttock (principal)
CPT/HCPCS: 10060; 99282

== ENCOUNTER 2018-09-21 14:10 | Emergency (ER) | payer MEDICARE, OTHER, SELFPAY ==
[2018-05-04 05:06] VITALS: BMI 23.8
[2018-09-21 14:12] VITALS: BP 113/73; PULSE 88; RESP 18; TEMP 36.4; O2SAT 100; BMI 23.7
--- NOTE | 2018-09-21 14:27 | PC.NURSE ---
pt requesting water, provided, tolerated well.
--- NOTE | 2018-09-21 15:05 | ED_ITS ---
HPI - Wound/Laceration <Briana Butler PA-C - Last Filed: 09/21/18 18:40> General Chief Complaint: Wound/Laceration Stated Complaint: check wound; dress wound Time Seen by Provider: 09/21/18 14:35 Source: patient and family Mode of arrival: ambulatory Limitations: other (History of CVA) History of Present Illness HPI narrative: This 83-year-old patient returns to have cellulitis/abscess recheck. Was told to f/u today and unable to see PCP. His states that she pulled out the packing when he shower this morning. She states that the wound did drain some blood on his shorts but has not been draining pus. Patient had been complaining of significant pain and tenderness but states that this is better now. No new symptoms such as fever. He is taking the antibiotic. reports that this seems better than yesterday overall. Related Data Home Medications Medication Instructions Recorded Confirmed baclofen 10 mg PO DAILY 05/04/18 09/21/18 potassium chloride [Klor-Con M20] 20 meq PO QAM 05/04/18 09/21/18 metoprolol succinate [Toprol XL] 100 mg PO DAILY 09/20/18 09/21/18 warfarin [Coumadin] See Label Instructions .ROUTE 09/20/18 09/21/18 .COMPLEX furosemide 20 mg PO QAM 09/21/18 09/21/18 Previous Rx's Medication Instructions Recorded digoxin [Lanoxin] 0.125 mg PO QPM #30 tab 02/10/17 diazepam [Valium] 5 mg PO Q DAY #30 tab 05/09/18 levetiracetam 500 mg tablet 500 mg PO BID #180 tab 06/17/18 gemfibrozil 600 mg tablet 600 mg PO BIDAC #180 tab 09/01/18 clindamycin HCl 300 mg PO TID #21 cap 09/20/18 Allergies Allergy/AdvReac Type Severity Reaction Status Date / Time atorvastatin [ATORVASTATIN] Allergy Mild SORE ANKLES Verified 09/21/18 14:25 simvastatin [SIMVASTATIN] Allergy Mild RASH Verified 09/21/18 14:25 influenza virus vaccine, Allergy Unknown Verified 09/21/18 14:25 specific [INFLUENZA VIRUS VACC,SPECIFIC] gabapentin [GABAPENTIN] AdvReac Intermediate altered Verified 09/21/18 14:25 mental status see 05/11/16 note Review of Systems <Briana Butler PA-C - Last Filed: 09/21/18 18:40> Review of Systems All systems reviewed & are unremarkable except as noted in HPI and below Exam <Briana Butler PA-C - Last Filed: 09/21/18 18:40> Narrative Exam Narrative: GENERAL APPEARANCE: Patient sitting comfortably, in no distress. LUNGS: Clear to auscultation bilaterally. HEART: Rate and rhythm irregular without murmur DERMATOLOGIC: Right medial buttock there is an indurated moderately erythematous nummular patch the with a small central incision site, I am not able to express any drainage. Minimal tenderness to palpation Initial Vital Signs Initial Vital Signs: Vital Signs Temperature 97.6 F 09/21/18 14:12 Pulse Rate 88 09/21/18 14:12 Respiratory Rate 18 09/21/18 14:12 Blood Pressure 113/73 09/21/18 14:12 Pulse Oximetry 100 09/21/18 14:12 <Donell Reese DO - Last Filed: 09/22/18 07:15> Initial Vital Signs Initial Vital Signs: Vital Signs Temperature 97.6 F 09/21/18 14:12 Pulse Rate 88 09/21/18 14:12 Respiratory Rate 18 09/21/18 14:12 Blood Pressure 113/73 09/21/18 14:12 Pulse Oximetry 100 09/21/18 14:12 Course <Briana Butler PA-C - Last Filed: 09/21/18 18:40> Additional Information: Small wound did not appear to need repacking. Site is indurated, not fluctuant or draining. Patient reported improvement in pain/ swelling. Preliminary cx not yet available. Will continue Clindamycin and advised f/u with PCP 2-3d for recheck and also will need INR. Vital Signs - 8 hr 09/21/18 14:12 Temperature 97.6 F Pulse Rate 88 Respiratory Rate 18 Blood Pressure 113/73 Pulse Oximetry 100 <Donell Reese DO - Last Filed: 09/22/18 07:15> Vital Signs - 8 hr 09/21/18 14:12 Temperature 97.6 F Pulse Rate 88 Respiratory Rate 18 Blood Pressure 113/73 Pulse Oximetry 100 Discharge Plan Departure Patient Disposition: Home Clinical Impression: Abscess of buttock, right Discharge Date/Time: 09/21/18 15:10 Interventions: ED Discharge Assessment Last Done: 09/21/18 15:15 Instructions: DI for Incision and Drainage of a Skin Abscess Activity Restrictions/Additional Instructions: The preliminary wound culture is not back yet today, but it appears that this is improving from yesterday, so please continue the clindamycin that was prescribed. Keep the wound clean and dry. It may be helpful to use hot packs to the area several times daily to help express any additional pus or infection in the wound. If you are lying on your side, you can also leave the wound open to air part of the time which may help it heal. Please return if you have any acutely worsening swelling or pain again, or new symptoms such as fever, or see your PCP right away. Please see your PCP for follow-up in 2-3 days to reassess after you have had a little bit more time on the antibiotics. You will need to have your warfarin level recheck by that time also since you are taking an antibiotic. Prescriptions: No Action digoxin [Lanoxin] 125 MCG tablet 0.125 mg PO QPM Qty: 30 RF: 11 levetiracetam 500 mg tablet 500 mg PO BID Qty: 180 RF: 3 gemfibrozil 600 mg tablet 600 mg PO BIDAC Qty: 180 RF: 3 potassium chloride [Klor-Con M20] 20 mEq tablet,ER particles/crystals 20 meq PO QAM RF: 0 baclofen 10 MG tablet 10 mg PO DAILY RF: 0 diazepam [Valium] 5 MG tablet 5 mg PO Q DAY Qty: 30 RF: 3 metoprolol succinate [Toprol XL] 100 mg tablet extended release 24 hr 100 mg PO DAILY RF: 0 warfarin [Coumadin] 5 MG tablet See Label Instructions .ROUTE .COMPLEX RF: 0 clindamycin HCl 300 mg capsule 300 mg PO TID Qty: 21 RF: 0 furosemide 20 mg tablet 20 mg PO QAM RF: 0 Referrals: Aashish Baca MD [Primary Care Provider] - <Donell Reese DO - Last Filed: 09/22/18 07:15> Cosign ED Attending Adams Attestation: I was available for consultation during this patient's emergency department encounter
--- NOTE | 2018-09-21 15:22 | PC.NURSE ---
I&D on R buttock done here in ER last night. Per spouse, the packing material removed after the shower and would like to get evaluated. R buttock has induration but no fluctuation per palpation. Pt denies fever, chills, nausea, vomiting, increasing pain. Drainage per spouse, bloody.
== END 2018-09-21 15:10 | disposition home or self-care (01) ==
PROVIDERS: Emergency Provider Internal Medicine; Family Provider Internal Medicine; PCP Internal Medicine
DX: L02.31 Cutaneous abscess of buttock (principal)
CPT/HCPCS: 99283

== ENCOUNTER → 2018-11-07 10:56 | Outpatient (CLI) | payer MEDICARE, OTHER, SELFPAY ==
[2018-05-04 05:06] VITALS: BMI 23.8
[2018-11-07 11:43] LABS: Digoxin 0.6 ng/mL (0.8-2.0)
[2018-11-07 14:16] LABS: Estimated Glomerular Filt Rate 58.1 mL/min (>60)
== END ==
PROVIDERS: Family Provider Radiology Radiation Oncology; PCP Internal Medicine; Visit Provider Internal Medicine Cardiovascular Disease
DX: I42.8 Other cardiomyopathies (principal); D38.0 Neoplasm of uncertain behavior of larynx
CPT/HCPCS: 36415; 80162; 82565

== ENCOUNTER → 2018-11-10 08:41 | Outpatient (CLI) | payer MEDICARE, OTHER, SELFPAY ==
[2018-05-04 05:06] VITALS: BMI 23.8
--- NOTE | 2018-11-10 | DI.CT.S_ITS ---
PROCEDURE: CT CHEST W CON INDICATIONS: NEOPLASM OF LARYNX TECHNIQUE: After the administration of intravenous contrast, 5 mm thick sections acquired from the pulmonary apices to the posterior costophrenic angles. 7 mm thick coronal and sagittal MIP reformats were acquired. For radiation dose reduction, the following was used: automated exposure control, adjustment of mA and/or kV according to patient size. COMPARISON: [place], [place], PET/CT SKULL BASE TO MID THIGH, 03/19/2017, 10:33. FINDINGS: Image quality: Excellent. Lungs and pleura: No acute air space opacities. Scarring within the left lung base is present. No pleural effusions or pneumothorax. Central and peripheral airways are patent and normal in caliber. Mediastinum: Heart size is enlarged. There is calcification of the coronary vasculature. No pericardial effusion. No mediastinal or hilar adenopathy by size criteria. Thoracic aorta and central pulmonary arteries are normal in size. Esophagus is normal in caliber. No hiatal hernia. Bones and chest wall: No suspicious bony lesions. Left chest wall pacer. No vertebral body compression fractures. No axillary or supraclavicular adenopathy by size criteria. Thyroid gland is within normal limits. No change in 12 mm sclerotic focus within the right anterolateral 4th rib. There was no increased metabolic activity within this location on the prior PET/CT examination. Abdomen: Visualized portions of the upper abdomen demonstrate scattered low density hepatic foci, cholelithiasis, and moderate left renal atrophy. Splenic calcifications are present. IMPRESSION: 1. No evidence of metastatic disease. 2. Cardiomegaly. Coronary artery disease. 3. Cholelithiasis. 4. Remote granulomatous disease. 5. Benign sclerotic focus within the right 4th rib. Dictated by: Aisha Tapia M.D. on 11/10/2018 at 9:50 Approved by: Aisha Tapia M.D. on 11/10/2018 at 9:55
--- NOTE | 2018-11-10 | DI.CT.S_ITS ---
PROCEDURE: CT SOFT TISSUE NECK W CON INDICATIONS: NEOPLASM OF LARYNX TECHNIQUE: After the administration of intravenous contrast, 3.0 mm axial sections acquired from the sella to the aortic arch. Additional oblique axial 3.0 mm sections acquired through the pharynx. 3 mm thick coronal and sagittal reformats were generated. For radiation dose reduction, the following was used: automated exposure control. COMPARISON: [facility], CT, SOFT TISSUE NECK W CONTRAST, 08/03/2016, 10:49. [facility], CT, HEAD WITHOUT CONTRAST, 03/12/2014, 13:00. [place], [place], PET/CT SKULL BASE TO MID THIGH, 10/09/2016, 11:38. [place], [place], PET/CT SKULL BASE TO MID THIGH, 03/19/2017, 10:33. [place], [place], CT SOFT TISSUE NECK W CON, 08/30/2018, 12:27. FINDINGS: Image quality: Excellent. Lymph nodes: No enlarged lymph nodes seen throughout the neck. Vessels: Visualized vasculature appears patent. Neck spaces: There is soft tissue nodularity and subtle increased enhancement involving the anterior commissure, which is new. Symmetric thickening of aryepiglottic fold appears unchanged. Subtle soft tissue fullness involving the left hemicord and piriform sinuses appears unchanged. The oropharynx, nasopharynx, and pharynx demonstrate no mucosal lesions. The vallecula, and tongue base all appear normal. Extramucosal spaces appear unremarkable. Glands: The parotid and submandibular glands appear normal. Thyroid gland is normal. Miscellaneous: Encephalomalacia involving prior lobes bilaterally, consistent with old infarcts. Lung apices appear clear. There is mild emphysema. Superficial soft tissues appear normal. Bones: No suspicious bony lesions. Visualized sinuses and mastoids appear unremarkable. IMPRESSION: 1. There is soft tissue nodularity and subtle increased enhancement involving the anterior commissure. The finding is new. Recommend correlation with direct visualization. 2. Mild soft tissue thickening in the left hemicord and pisiformis sinus, as well as symmetric thickening of the aryepiglottic fold, appears unchanged, likely related to post radiation change. 3. No cervical lymphadenopathy. 4. 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 Dictated by: Sophy Koroma M.D. on 11/10/2018 at 13:07 Approved by: Sophy Koroma M.D. on 11/10/2018 at 13:30
--- NOTE | 2018-11-10 | DI.US.S_ITS ---
PROCEDURE: US CAROTID DOPPLER BI INDICATIONS: HISTORY OF CVA TECHNIQUE: Color and pulse Doppler interrogation was performed of both carotid systems, with image documentation and velocity measurements. COMPARISON: [facility], [place], US CAROTID DOPPLER, 02/21/2003, 9:51. [facility], [place], CAROTID ARTERY DOPPLER BILAT, 03/16/2014, 14:35. [facility], CT, CT SOFT TISSUE NECK W CON, 11/10/2018, 9:01. [facility], [place], CAROTID ARTERY DOPPLER BILAT, 09/04/2016, 12:14. FINDINGS: Stenosis calculations are based on SRU (Society of Radiologists in Ultrasound) criteria. The flow velocities and the arterial waveforms are normal within both carotid arterial systems. Atherosclerotic plaque is seen on both sides. The estimated degree of internal carotid artery stenosis is less than 50%. Antegrade flow is confirmed within both vertebral arteries. IMPRESSION: No hemodynamically significant stenosis is seen. Similar to prior. Atherosclerotic plaque is noted bilaterally. Dictated by: Rufus Moser M.D. on 11/10/2018 at 10:36 Approved by: Rufus Moser M.D. on 11/10/2018 at 10:37
== END ==
PROVIDERS: Family Provider Radiology Radiation Oncology; PCP Internal Medicine; Visit Provider Radiology Radiation Oncology
DX: C14.0 Malignant neoplasm of pharynx, unspecified (principal); I65.23 Occlusion and stenosis of bilateral carotid arteries; J43.9 Emphysema, unspecified; I25.10 Atherosclerotic heart disease of native coronary artery without angina pectoris; I51.7 Cardiomegaly; K80.20 Calculus of gallbladder without cholecystitis without obstruction; N26.1 Atrophy of kidney (terminal); Z86.73 Personal history of transient ischemic attack (TIA), and cerebral infarction without residual deficits
CPT/HCPCS: 70491; 71260; 93880; Q9967

== ENCOUNTER 2018-12-19 18:16 | Emergency (ER) | payer MEDICARE, OTHER, SELFPAY ==
[2018-05-04 05:06] VITALS: BMI 23.8
[2018-12-19] VITALS (7 sets, daily range): BP systolic 115–163; BP diastolic 63–90; PULSE 42–103; RESP 14–21; O2SAT 99–100; BMI 23.7
--- NOTE | 2018-12-19 18:37 | DI.RAD.S_ITS ---
PROCEDURE: XR CHEST 1V INDICATIONS: chest pain TECHNIQUE: One view of the chest was acquired. COMPARISON: [facility], [place], XR CHEST 1V, 09/08/2018, 19:18. FINDINGS: Surgical changes and devices: There is a cardiac pacemaker with these in stable position. Lungs and pleura: Lungs are clear. No pleural effusions or pneumothorax. Mediastinum: Mediastinal contours appear normal. Heart size is mildly increased. Bones and chest wall: No suspicious bony lesions. Overlying soft tissues appear unremarkable. IMPRESSION: Mild cardiomegaly. No acute cardiopulmonary disease. Dictated by: Sophy Koroma M.D. on 12/19/2018 at 19:43 Approved by: Sophy Koroma M.D. on 12/19/2018 at 19:44
[2018-12-19 19:12] LABS: INR 3.6 (0.9-1.3); Prothrombin Time 43.1 SECONDS (10.1-12.7)
[2018-12-19 19:15] LABS: Alanine Aminotransferase 21 IU/L (21-72); Albumin 4.3 g/dL (3.5-5.0); Albumin Globulin Ratio 1.3 (1.0-2.8); Alkaline Phosphatase 117 U/L (38-126); Aspartate Aminotransferase 21 IU/L (17-59); Bilirubin Total 0.5 mg/dL (0.2-1.3); Blood Urea Nitrogen 42 mg/dL (9-20); Calcium 10.1 mg/dL (8.4-10.2); Carbon Dioxide 25 mmol/L (22-32); Chloride 104 mmol/L (98-107); Creatine Kinase 56 U/L (55-170); Estimated Glomerular Filt Rate 44.9 mL/min (>60); Globulin 3.4 g/dL (1.7-4.1); Glucose 136 mg/dL (80-110); HEMOLYSIS < 15 (0-50); Lipase 144 U/L (23-300); PTT Partial Thromboplastin Tim 50 SECONDS (26.4-36.2); Potassium 4.6 mmol/L (3.4-5.1); Sodium 140 mmol/L (137-145); Total Protein 7.7 g/dL (6.3-8.2)
[2018-12-19] MEDS: SODIUM CHLORIDE 0.9% 1,000 ML 150 ML IV (19:15)
[2018-12-19 19:21] LABS: Add Manual Diff / Slide Review NO; Basophils Absolute Auto 0 /uL (0-100); Basophils Percent Auto 0.5 % (0-2); Eosinophils Absolute Auto 100 /uL (0-450); Eosinophils Percent Auto 1.9 % (2-4); Hematocrit 36.2 % (41-53); Hemoglobin 11.6 g/dL (13.5-17.5); Lymphocytes Absolute Auto 1500 /uL (1100-4500); Lymphocytes Percent Auto 24.9 % (25-40); Mean Corpuscular Hemoglobin 27.2 PG (26-34); Monocytes Absolute Auto 700 /uL (0-900); Monocytes Percent Auto 11.6 % (3-14); Neutrophils Absolute Auto 3700 /uL (1500-7000); Neutrophils Percent Auto 61.1 % (50-75); Platelet Count 372 X10^3/uL (150-400); Red Blood Cell Count 4.26 X10^6/uL (4.5-5.9); Red Cell Distribution Width 16.9 % (11.6-14.8)
[2018-12-19 19:27] LABS: Troponin I 0.101 ng/mL (0.01-0.034)
[2018-12-19 21:53] LABS: Troponin I 0.105 ng/mL (0.01-0.034)
--- NOTE | 2018-12-19 22:00 | ED_ITS ---
HPI - Weakness General Chief complaint: Weakness Stated complaint: Weakness Time Seen by Provider: 12/19/18 19:09 Source: patient, family and EMS Mode of arrival: EMS Limitations: no limitations History of Present Illness HPI Narrative: Patient is an 83-year-old male with history of pharyngeal squamous cell cancer. he is scheduled to have surgery or at least have evaluation for surgery on January 04. He has a 50% chance of surviving surgery and is improving. Family is quite persistent that he go for surgery. However due to pain with eating as and drinking he is not eating or drinking much. He and his live alone. According the son in long he has had significant decline especially today. In last 24 hr he has not had much to drink they are worried about dehydration. Son-in-law feels he needs to be in a long-term care facility in till of the surgery can take place. He states that he does trying keep some stuff down but then some of it comes back up immediately just due to pain. MD Complaint: generalized weakness Related Data Home Medications Medication Instructions Recorded Confirmed baclofen 10 mg PO DAILY 05/04/18 11/28/18 potassium chloride [Klor-Con M20] 20 meq PO QAM 05/04/18 11/28/18 warfarin [Coumadin] See Rx Instructions .ROUTE .COMPLEX 09/20/18 11/28/18 furosemide 20 mg PO QAM 09/21/18 11/28/18 Previous Rx's Medication Instructions Recorded digoxin [Lanoxin] 0.125 mg PO QPM #30 tab 02/10/17 diazepam [Valium] 5 mg PO Q DAY #30 tab 05/09/18 levetiracetam 500 mg tablet 500 mg PO BID #180 tab 06/17/18 gemfibrozil 600 mg tablet 600 mg PO BIDAC #180 tab 09/01/18 magic mouth wash 5 ml PO TID PRN #100 ml 12/19/18 Allergies Allergy/AdvReac Type Severity Reaction Status Date / Time atorvastatin [ATORVASTATIN] Allergy Mild SORE ANKLES Verified 12/19/18 18:24 simvastatin [SIMVASTATIN] Allergy Mild RASH Verified 12/19/18 18:24 influenza virus vaccine, Allergy Unknown Verified 12/19/18 18:24 specific [INFLUENZA VIRUS VACC,SPECIFIC] gabapentin [GABAPENTIN] AdvReac Intermediate altered Verified 12/19/18 18:24 mental status see 05/11/16 note Review of Systems Review of Systems ROS Unobtainable: All systems reviewed & are unremarkable except as noted in HPI and below Constitutional Denies chills, Denies fever(s), Denies lethargy and Denies weakness Eyes Denies change in vision, Denies eye discharge, Denies irritation and Denies loss of vision ENT Ears, Nose, Mouth, and Throat: Denies change in voice, Denies neck pain, Reports sore throat, Denies throat swelling and Denies tongue swelling Cardiovascular Denies chest pain, Denies irregular heart rhythm, Denies lightheadedness, Denies palpitations, Denies dyspnea, Denies dyspnea on exertion and Denies orthopnea Respiratory Denies cough, Denies dyspnea, Denies dyspnea on exertion and Denies wheezing Gastrointestinal Gastrointestinal: Denies abdominal pain and Denies vomiting Musculoskeletal Denies neck pain Integumentary/Breasts Denies pruritus, Denies erythema, Denies rash and Denies wounds Neurologic Denies loss of vision and Denies weakness Endocrine Denies palpitations Allergic/Immunologic Denies throat swelling, Denies tongue swelling and Denies wheezing PFSH Family History Brother Family history of prostate carcinoma Social History household members: spouse Smoking Status: Never smoker alcohol intake: never Family History Brother Family history of prostate carcinoma Social History household members: spouse Smoking Status: Never smoker alcohol intake: never Exam Initial Vital Signs Initial Vital Signs: Vital Signs Pulse Rate 89 12/19/18 18:48 Blood Pressure 135/73 12/19/18 18:48 Pulse Oximetry 100 12/19/18 18:48 Const General: cooperative, frail appearing and ill appearing ( Chronic) Nutritional Appearance: thin Orientation: alert, awake and oriented x3 HENMT Head: normal to inspection and normocephalic Mouth: tongue normal and No drooling Eyes General: appearance normal, both eyes and all related structures Chest Chest: normal inspection of the chest Resp Effort & Inspection: normal respiratory effort, able to speak in complete sentences, no respiratory distress and no use of accessory muscles Auscultation: clear to auscultation bilaterally, no rales, no rhonchi and no wheezes Cardio Palpation: normal PMI Rate: regular rate Rhythm: regular rhythm Heart Sounds: S1 normal and S2 normal Skin General: no rashes or lesions noted, No jaundice and No petechiae Neuro General: alert, oriented x3, gait normal and no focal motor deficits Speech: speech normal Course Orders Ordered: ED Orders 12/19/18 21:25 Troponin I Stat Discontinued Medications Sodium Chloride (Normal Saline 0.9%) 1,000 mls @ 150 mls/hr IV CONT SANDRA Last Infusion: 12/19/18 22:15 Dose: 0 mls/hr Infusion: 12/19/18 22:14 Dose: 0 mls/hr Admin: 12/19/18 19:15 Dose: 150 mls/hr Vital Signs - 8 hr 12/19/18 21:00 12/19/18 21:37 Pulse Rate 74 Respiratory Rate 14 Blood Pressure [Left Arm] 163/63 H 120/72 Pulse Oximetry 99 MDM - Weakness Lab Data Attestation: I reviewed the patient's lab results. Result diagrams: 12/19/18 18:55 12/19/18 18:55 Lab Results 12/19/18 12/19/18 12/19/18 Range/Units 18:55 18:55 18:55 WBC 6.0 (4.5-11.0) X10^3/uL RBC 4.26 L (4.5-5.9) X10^6/uL Hgb 11.6 L (13.5-17.5) g/dL Hct 36.2 L (41-53) % MCV 85.0 (80-100) fL MCH 27.2 (26-34) PG MCHC 32.0 (30-36) % RDW 16.9 H (11.6-14.8) % Plt Count 372 (150-400) X10^3/uL Neut % (Auto) 61.1 (50-75) % Lymph % (Auto) 24.9 L (25-40) % [place] % (Auto) 11.6 (3-14) % Eos % (Auto) 1.9 L (2-4) % Baso % (Auto) 0.5 (0-2) % Neut # (Auto) 3700 (1617-7022) /uL Lymph # (Auto) 1500 (0899-7086) /uL [place] # (Auto) 700 (0-900) /uL Eos # (Auto) 100 (0-450) /uL Baso # (Auto) 0 (0-100) /uL PT 43.1 H (10.1-12.7) SECONDS INR 3.6 H (0.9-1.3) APTT 50 H D (26.4-36.2) SECONDS Sodium 140 (137-145) mmol/L Potassium 4.6 (3.4-5.1) mmol/L Chloride 104 (98-107) mmol/L Carbon Dioxide 25 (22-32) mmol/L BUN 42 H (9-20) mg/dL Creatinine 1.50 H (0.66-1.25) mg/dL Estimated GFR 44.9 L (>60) mL/min BUN/Creatinine Ratio 28.0 H (6-22) Glucose 136 H (80-110) mg/dL Calcium 10.1 (8.4-10.2) mg/dL Total Bilirubin 0.5 (0.2-1.3) mg/dL AST 21 (17-59) IU/L ALT 21 (21-72) IU/L Alkaline Phosphatase 117 (38-126) U/L Total Creatine Kinase 56 (55-170) U/L CK-MB (CK-2) TNP CK-MB (CK-2) Rel Index TNP Troponin I 0.101 H (0.01-0.034) ng/mL Total Protein 7.7 (6.3-8.2) g/dL Albumin 4.3 (3.5-5.0) g/dL Globulin 3.4 (1.7-4.1) g/dL Albumin/Globulin Ratio 1.3 (1.0-2.8) Lipase 144 (23-300) U/L 12/19/18 Range/Units 21:25 WBC (4.5-11.0) X10^3/uL RBC (4.5-5.9) X10^6/uL Hgb (13.5-17.5) g/dL Hct (41-53) % MCV (80-100) fL MCH (26-34) PG MCHC (30-36) % RDW (11.6-14.8) % Plt Count (150-400) X10^3/uL Neut % (Auto) (50-75) % Lymph % (Auto) (25-40) % [place] % (Auto) (3-14) % Eos % (Auto) (2-4) % Baso % (Auto) (0-2) % Neut # (Auto) (4882-5072) /uL Lymph # (Auto) (6290-7091) /uL [place] # (Auto) (0-900) /uL Eos # (Auto) (0-450) /uL Baso # (Auto) (0-100) /uL PT (10.1-12.7) SECONDS INR (0.9-1.3) APTT (26.4-36.2) SECONDS Sodium (137-145) mmol/L Potassium (3.4-5.1) mmol/L Chloride (98-107) mmol/L Carbon Dioxide (22-32) mmol/L BUN (9-20) mg/dL Creatinine (0.66-1.25) mg/dL Estimated GFR (>60) mL/min BUN/Creatinine Ratio (6-22) Glucose (80-110) mg/dL Calcium (8.4-10.2) mg/dL Total Bilirubin (0.2-1.3) mg/dL AST (17-59) IU/L ALT (21-72) IU/L Alkaline Phosphatase (38-126) U/L Total Creatine Kinase (55-170) U/L CK-MB (CK-2) CK-MB (CK-2) Rel Index Troponin I 0.105 H (0.01-0.034) ng/mL Total Protein (6.3-8.2) g/dL Albumin (3.5-5.0) g/dL Globulin (1.7-4.1) g/dL Albumin/Globulin Ratio (1.0-2.8) Lipase (23-300) U/L Imaging Data Chest x-ray: Radiologist's impression: PROCEDURE: XR CHEST 1V INDICATIONS: chest pain TECHNIQUE: One view of the chest was acquired. COMPARISON: [facility], , XR CHEST 1V, 09/08/2018, 19:18. FINDINGS: Surgical changes and devices: There is a cardiac pacemaker with these in stable position. Lungs and pleura: Lungs are clear. No pleural effusions or pneumothorax. Mediastinum: Mediastinal contours appear normal. Heart size is mildly incre ased. Bones and chest wall: No suspicious bony lesions. Overlying soft tissues appear unremarkable. IMPRESSION: Mild cardiomegaly. No acute cardiopulmonary disease. ECG Data Attestation: I personally reviewed and interpreted this ECG as follows: Prior ECG tracings: available for review Interpretation: EKG 1.: Paced rhythm rate [address] changes similar to her pre vious EKGs. EKG 2. paced rhythm PVC noted rate 93 similar to prior MDM Narrative Medical decision making narrative: the patient was given some viscous lidocaine afterwards he was able to tolerate applesauce and fluids. His request [place] to go home. At this time he is mildly dehydrated with a creatinine of 1.5 only slightly up from his baseline of 1.2. I have discussed case with his primary care provider who is quite familiar with him. He agrees with return home and close outpatient follow-up. The patient's troponin indeterminate did repeated twice with minimal change. Even if positive patient is unlikely candidate for any significant intervention. Daughter is agreeable with discharge home. Patient is given prescription for Magic mouthwash in hopes it will help with increased oral intake. Discharge Plan Departure Patient Disposition: Home Clinical Impression: Acute dehydration Discharge Date/Time: 12/19/18 22:18 Interventions: ED Discharge Assessment Last Done: 12/19/18 22:17 Instructions: DI for Dehydration -- Adult Activity Restrictions/Additional Instructions: *You have been diagnosed with mild dehydration *What to do: increase fluid intake with Gatorade or Gatorade like substance, boost or Ensure Jell-O, applesauce, milk, or anything that is tolerated *Continue to take medications as directed Magic mouthwash swish and spit or swish and swallow before meals *Follow up with your primary care provider in 2-3 days *Return to ER if you should have fever, inability to tolerate oral fluids, increasing pain or any new, worsening or concerning symptoms Prescriptions: New magic mouth wash solution 5 ml PO TID PRN (Reason: mouth pain, before meals) Qty: 100 RF: 0 No Action digoxin [Lanoxin] 125 MCG tablet 0.125 mg PO QPM Qty: 30 RF: 11 levetiracetam 500 mg tablet 500 mg PO BID Qty: 180 RF: 3 gemfibrozil 600 mg tablet 600 mg PO BIDAC Qty: 180 RF: 3 potassium chloride [Klor-Con M20] 20 mEq tablet,ER particles/crystals 20 meq PO QAM RF: 0 baclofen 10 MG tablet 10 mg PO DAILY RF: 0 diazepam [Valium] 5 MG tablet 5 mg PO Q DAY Qty: 30 RF: 3 warfarin [Coumadin] 5 MG tablet See Rx Instructions .ROUTE .COMPLEX RF: 0 furosemide 20 mg tablet 20 mg PO QAM RF: 0 Referrals: Aashish Baca MD [Primary Care Provider] -
== END 2018-12-19 22:18 | disposition home or self-care (01) ==
PROVIDERS: Emergency Provider Emergency Medicine; Family Provider Radiology Radiation Oncology; PCP Internal Medicine
DX: E86.0 Dehydration (principal)
CPT/HCPCS: 36415; 36591; 71045; 80053; 82550; 83690; 84484; 85025; 85610; 85730; 93005; 96360; 96361; 99284; 99285